=== PATIENT | male | born 1970 | race Caucasian/White ===

== ENCOUNTER 2016-11-25 21:20 | Emergency (ER) | payer BC ==
[2016-11-25 21:35] VITALS: RESP 16
[2016-11-25] MEDS ORDERED: KETOROLAC 30 MG/ML 1 ML VIAL IVP STA (21:41)
[2016-11-25 22:23] LABS: Basophils % (A) 0 %; CH 30.5; CHCM 34.9; Eosinophils # (A) 0.1 k/uL (0-0.7); Eosinophils % (A) 1 %; HCT 49.2 % (39.0-53.0); HDW 2.81; HGB 16.4 gm/dL (13.0-17.5); Luc # (Auto) 0.13; Luc % (Auto) 1; Lymphocytes # (A) 2.1 k/uL (1.0-4.8); Lymphocytes % (A) 21 %; MCH 29.3 pg (25.0-35.0); MCHC 33.4 g/dL (31.0-37.0); MCV 87.7 fL (80.0-100.0); Mean Platelet Volume 7.2; Monocytes # (A) 0.4 k/uL (0-1.0); Monocytes % (A) 4 %; Neutrophils # (A) 7.4 k/uL (1.3-7.7); Neutrophils % (A) 72 %; RBC 5.61 m/uL (4.30-5.90); RDW 14.2 % (11.5-15.5); WBC 10.2 k/uL (3.8-10.6); WBC (Perox) 9.67
[2016-11-25 22:31] LABS: Partial Thromboplastin Time 22.8 sec (22.0-30.0); Prothrombin Time 10.4 sec (9.0-12.0)
[2016-11-25 22:35] LABS: ALT 39 U/L (21-72); AST 25 U/L (17-59); Alkaline Phosphatase 111 U/L (38-126); Anion Gap 13 mmol/L; Blood Urea Nitrogen 17 mg/dL (9-20); Carbon Dioxide 22 mmol/L (22-30); Chloride 109 mmol/L (98-107); Glucose 98 mg/dL (74-99); Non-African American GFR(MDRD) 56 (>60 ml/min/1.73 sqM); Potassium 4.3 mmol/L (3.5-5.1); Sodium 144 mmol/L (137-145); Total Bilirubin 0.9 mg/dL (0.2-1.3); Total Protein 7.9 g/dL (6.3-8.2)
--- NOTE | 2016-11-25 22:56 | XR ---
EXAM: XR Chest, 2 Views CLINICAL HISTORY: Reason: Pain TECHNIQUE: Frontal and lateral views of the chest. COMPARISON: 10/21/14. FINDINGS: Lungs: Unremarkable. No consolidation. Pleural space: Unremarkable. No pneumothorax. Heart: Unremarkable. No cardiomegaly. Mediastinum: Unremarkable. Bones/joints: No acute abnormality. Minor degenerative changes. IMPRESSION: No new acute intrathoracic abnormality is seen.
--- NOTE | 2016-11-25 23:18 | ED ---
Chest Pain HPI - General Chief Complaint: Chest Pain Stated Complaint: Chest Pain Time Seen by Provider: 11/25/16 21:21 Source: patient Mode of arrival: wheelchair Limitations: no limitations - History of Present Illness Initial Comments: This is a 46-year-old male with no past medical history who presents emergency department for chest pain back pain and left arm numbness. He states that it started shortly after playing basketball earlier today. He states that he had no symptoms while playing basketball however when he got into his car to drive home he developed the above symptoms. He states that he had some chest pressure which has since resolved however he has had persistent back pain and also some numbness down the left hand. Denies any weakness. He states that he normally would just wait it out however it concerned him so he decided to come in. He denies any smoking history. He states that he does not have any lightheadedness. No nausea or vomiting. No other complaints. - Related Data Home Medications Medication Instructions Recorded Confirmed Acetaminophen [Tylenol] 1,000 mg PO DAILY PRN 11/25/16 11/25/16 Ibuprofen [Motrin] 800 mg PO DAILY PRN 11/25/16 11/25/16 Allergies Allergy/AdvReac Type Severity Reaction Status Date / Time No Known Allergies Allergy Verified 11/25/16 21:49 Review of Systems ROS Statement: Those systems with pertinent positive or pertinent negative responses have been documented in the HPI. ROS Other: All systems not noted in ROS Statement are negative. EKG Findings - EKG Comments: EKG Findings:: EKG showing normal sinus rhythm with a rate of 62. No ST segment changes or T-wave inversions. QTC is 387. Other intervals are normal. No ectopy. Past Medical History Past Medical History: No Reported History History of Any Multi-Drug Resistant Organisms: None Reported Past Surgical History: Orthopedic Surgery Past Psychological History: No Psychological Hx Reported Smoking Status: Never smoker Past Alcohol Use History: None Reported Past Drug Use History: None Reported General Exam - General Exam Comments Initial Comments: Constitutional: Awake alert Appears comfortable Head: Normocephalic atraumatic Eyes: no conjunctival injection No scleral icterus EOMI Neck: No JVD Supple Heart: Regular rate rhythm normal S1-S2 no murmurs Lungs: Clear to auscultation bilaterally No wheezing No rales Abdomen: Soft nondistended nontender Extremities: Non edematous DP pulses intact Radial pulses intact Neuro: A&Ox3 5 out of 5 strength in upper and lower extremities bilaterally, sensation intact to light touch in all extremities Psych: Appropriate mood and affect Limitations: no limitations Course Vital Signs 11/25/16 11/25/16 21:23 21:33 Temperature 97.4 F L Pulse Rate 64 64 Respiratory 20 16 Rate Blood Pressure 200/101 183/108 O2 Sat by Pulse 98 99 Oximetry Chest Pain MDM - MDM This is a 38-year-old male presents emergency department for chest pain, back pain, left arm tingling and numbness. His symptoms completely resolved with Toradol. EKG was unremarkable. Troponin negative. Chest x-ray did not show any mediastinal widening or any intrathoracic process. Of note the patient's blood pressure was elevated while in the emergency department. It sounds like this is been reoccurring at previous office visits. He may need to be started on blood pressure medications. I gave him Dr. Jacinto's information to follow-up with. If he has persistently high blood pressure he should be started on blood pressure medication. I told him to return if he had worsening chest pain or any other concerns. All questions were answered. Disposition Clinical Impression: Chest pain Disposition: HOME SELF-CARE Condition: Stable Instructions: Chest Pain (ED) Additional Instructions: Please establish herself with a primary care physician. Your blood pressure 1 the emergency Department ranged from 160-180 systolic over 100. If it is consistently high her next office visit blood pressure medication should be considered. Referrals: None,Stated [Primary Care Provider] - 1-2 days Saida Bright MD [REFERRING] - 1-2 days
[2016-11-25 23:29] LABS: Creatine Kinase MB 1.1 ng/mL (0.0-2.4); Troponin I 0.013 ng/mL (0.000-0.034)
[2016-11-26 02:00] VITALS: BP 168/104; PULSE 55; TEMP 97.7
== END 2016-11-26 00:02 | disposition home or self-care (01) ==
LOC: EC 21:20
DX: R07.89 Other chest pain (principal); M54.9 Dorsalgia, unspecified; R03.0 Elevated blood-pressure reading, without diagnosis of hypertension; R20.0 Anesthesia of skin; R20.2 Paresthesia of skin
CPT/HCPCS: 36415; 93005; 80053; 82553; 84484; 85025; 85610; 85730; 71020; 99285; 96374; J1885

== ENCOUNTER → 2017-02-16 | Outpatient (CLI) | payer BC ==
[2017-02-16 08:25] LABS: CH 31.4; CHCM 34.4; HCT 52.1 % (39.0-53.0); HDW 2.83; HGB 17.1 gm/dL (13.0-17.5); MCH 30.2 pg (25.0-35.0); MCHC 32.9 g/dL (31.0-37.0); MCV 91.9 fL (80.0-100.0); Mean Platelet Volume 7.6; RBC 5.67 m/uL (4.30-5.90); RDW 15.2 % (11.5-15.5); WBC 6.9 k/uL (3.8-10.6)
[2017-02-16 08:46] LABS: ALT 39 U/L (21-72); AST 27 U/L (17-59); Alkaline Phosphatase 88 U/L (38-126); Anion Gap 11 mmol/L; Blood Urea Nitrogen 14 mg/dL (9-20); Calcium 9.5 mg/dL (8.4-10.2); Carbon Dioxide 25 mmol/L (22-30); Chloride 108 mmol/L (98-107); Cholesterol 203 mg/dL (<200); Glucose 87 mg/dL (74-99); HDL Cholesterol 40 mg/dL (40-60); Non-African American GFR(MDRD) >60 (>60 ml/min/1.73 sqM); Potassium 4.2 mmol/L (3.5-5.1); Sodium 144 mmol/L (137-145); Total Protein 7.5 g/dL (6.3-8.2)
== END | disposition home or self-care (01) ==
LOC: LABWHC1 08:04
PROVIDERS: ATTEND Family Medicine
DX: I16.0 Hypertensive urgency (principal)
CPT/HCPCS: 36415; 80053; 80061; 85027

== ENCOUNTER 2018-10-21 11:01 | Inpatient (IN) | payer BC ==
[2018-10-21] MEDS ORDERED: SODIUM CHLORIDE 0.9% 500 ML 500 ML IV STA (11:15)
[2018-10-21] MEDS ORDERED: ASPIRIN 81 MG PO STA (11:15)
--- NOTE | 2018-10-21 11:45 | ED ---
Chest Pain HPI - General Chief Complaint: Chest Pain Stated Complaint: Chest discomfort/sent by doctor Time Seen by Provider: 10/21/18 11:15 Source: patient, RN notes reviewed Mode of arrival: ambulatory Limitations: no limitations - History of Present Illness Initial Comments: 48-year-old male presents emergency Department with chief complaint of chest pain. He's had progressive symptoms of last couple weeks and which she states she always notices it with exertion. He states even short walking distances he gets pain in his chest and radiates to his back. He states that the same pain this more frequent for the last 2 weeks. Patient was seen at [facility] and sent here for further evaluation. He has no prior cardiac disease he does have a history of hypertension and mild family heart disease. Patient does not take any current medications though. Patient denies any prior blood clots or clotting disorders in the family. - Related Data Home Medications Medication Instructions Recorded Confirmed Ibuprofen [Motrin] 800 mg PO DAILY PRN 11/25/16 10/21/18 Allergies Allergy/AdvReac Type Severity Reaction Status Date / Time No Known Allergies Allergy Verified 10/21/18 11:14 Review of Systems ROS Statement: Those systems with pertinent positive or pertinent negative responses have been documented in the HPI. ROS Other: All systems not noted in ROS Statement are negative. EKG Findings - EKG Comments: EKG Findings:: EKG performed at 11:40 normal sinus rhythm rate of 61. 164 QRS 76 QT status QTC 422/[address] elevation or depression. Past Medical History Past Medical History: No Reported History History of Any Multi-Drug Resistant Organisms: None Reported Past Surgical History: Orthopedic Surgery Past Psychological History: No Psychological Hx Reported Smoking Status: Never smoker Past Alcohol Use History: None Reported Past Drug Use History: None Reported General Exam Limitations: no limitations General appearance: alert, in no apparent distress Head exam: Present: atraumatic, normocephalic, normal inspection ENT exam: Present: normal exam, mucous membranes moist, TM's normal bilaterally Neck exam: Present: normal inspection. Absent: tenderness, meningismus, lymphadenopathy Respiratory exam: Present: normal lung sounds bilaterally. Absent: respiratory distress, wheezes, rales, rhonchi, stridor Cardiovascular Exam: Present: regular rate, normal rhythm, normal heart sounds. Absent: systolic murmur, diastolic murmur, rubs, gallop, clicks GI/Abdominal exam: Present: soft, normal bowel sounds. Absent: distended, tenderness, guarding, rebound, rigid Course Vital Signs 10/21/18 10/21/18 11:11 11:50 Temperature 97.7 F Pulse Rate 64 61 Respiratory 18 18 Rate Blood Pressure 160/94 165/110 O2 Sat by Pulse 99 95 Oximetry Chest Pain MDM - MDM 48-year-old male presents emergency from for chest pain. Patient has exertional chest pain which is concerning given negative d-dimer, chest x-ray unremarkable EKG unremarkable. Patient will be admitted for further cardiac rule out includ ing possible stress test and cath. Disposition Clinical Impression: Exertional chest pain Disposition: ADMITTED IP TO THIS HOSP Condition: Stable Referrals: Mumtaz Garnica MD [Primary Care Provider] - 1-2 days
[2018-10-21 11:48] LABS: Basophils # (A) 0.1 k/uL (0-0.2); Basophils % (A) 1 %; Eosinophils # (A) 0.2 k/uL (0-0.7); Eosinophils % (A) 2 %; HCT 51.9 % (39.0-53.0); HGB 16.9 gm/dL (13.0-17.5); Lymphocytes # (A) 2.1 k/uL (1.0-4.8); Lymphocytes % (A) 32 %; MCH 29.2 pg (25.0-35.0); MCHC 32.5 g/dL (31.0-37.0); Mean Platelet Volume 7.4; Monocytes # (A) 0.4 k/uL (0-1.0); Monocytes % (A) 6 %; Neutrophils # (A) 3.7 k/uL (1.3-7.7); Neutrophils % (A) 57 %; Platelet Count 213 k/uL (150-450); RBC 5.77 m/uL (4.30-5.90); RDW 14.3 % (11.5-15.5); WBC 6.6 k/uL (3.8-10.6)
[2018-10-21 12:09] LABS: D-Dimer 0.36 mg/L FEU (<0.60); INR 0.9 (<1.2); Partial Thromboplastin Time 24.8 sec (22.0-30.0)
--- NOTE | 2018-10-21 12:11 | XR ---
EXAMINATION TYPE: XR chest 2V DATE OF EXAM: 10/21/2018 COMPARISON: Chest x-ray November 25, 2016. HISTORY: Chest pain. TECHNIQUE: Frontal and lateral views of the chest are obtained. FINDINGS: Overlying EKG leads are redemonstrated. There is chronic clinical change without suspicious focal air space opacity, pleural effusion, or pneumothorax seen. The cardiac silhouette size is sta ble and upper limits of normal. The osseous structures are intact. IMPRESSION: No acute cardiopulmonary process. No significant change from prior.
[2018-10-21 12:17] LABS: Albumin 4.7 g/dL (3.5-5.0); Calcium 9.5 mg/dL (8.4-10.2); Magnesium 2.2 mg/dL (1.6-2.3); Potassium 4.5 mmol/L (3.5-5.1); Total Bilirubin 0.9 mg/dL (0.2-1.3); Total Protein 8.1 g/dL (6.3-8.2)
[2018-10-21] MEDS ORDERED: NITROGLYCERIN SL TABS 0.4 MG TAB SUBLINGUAL PRN (12:37)
[2018-10-21] MEDS ORDERED: HEPARIN SODIUM,PORCINE 5,000 UNIT/ML 1 ML VIAL IV ONE (12:37)
[2018-10-21] MEDS ORDERED: HEPARIN SOD,PORK IN 0.45% NACL 25,000 UNIT in 0.45% NACL 1 250ML.BAG IV SCH (12:45)
[2018-10-21] MEDS ORDERED: METOPROLOL TARTRATE 50 MG TAB PO STA (14:49)
[2018-10-21] MEDS ORDERED: ATORVASTATIN 80 MG TAB PO STA (14:50)
--- NOTE | 2018-10-21 14:51 | P.HPIM ---
History of Present Illness H&P Date: 10/21/18 Patient is a 48-year-old male with a past history of hypertension who presented to the ED for ongoing exertional substernal chest pain for the past 3 weeks. The patient reports that over the past 3-4 weeks he has noted that he gets a pressure-like substernal chest pain with associated shortness of breath upon exertion. The pain is a 6-8 out of 10, with radiation to the left arm and elbow, exacerbated by further activity, and alleviated entirely with rest. Pain was brought on with brisk walking, playing basketball, or climbing stairs, and has been getting worse, and occurring with decreasing levels of exertion. The patient notes that he has never had such symptoms before, though notes that he does have GERD but feels that this pain is very strongly linked to exertion. Patient otherwise denied fevers, cough, dizziness, abdominal pain, nausea, vomiting, or diaphoresis. Patient underwent an extensive evaluation in the ED with troponins less than 0.012, EKG showing normal sinus rhythm at 61 bpm with borderline criteria for LVH, chest x-ray negative for acute abnormalities. WBC was 6.6, hemoglobin 10.9, BUN 12, and creatinine 1.17. The patient was subsequently admitted under the medicine service for cardiology evaluation. Review of Systems Pertinent positives and negatives as discussed in HPI, a complete review of systems was performed and all other systems are negative. Past Medical History Past Medical History: No Reported History History of Any Multi-Drug Resistant Organisms: None Reported Past Surgical History: Orthopedic Surgery Past Psychological History: No Psychological Hx Reported Smoking Status: Never smoker Past Alcohol Use History: None Reported Past Drug Use History: None Reported Medications and Allergies Home Medications Medication Instructions Recorded Confirmed Type Ibuprofen [Motrin] 800 mg PO DAILY PRN 11/25/16 10/21/18 History Allergies Allergy/AdvReac Type Severity Reaction Status Date / Time No Known Allergies Allergy Verified 10/21/18 11:14 Physical Exam Vitals: Vital Signs Temp Pulse Resp BP Pulse Ox 10/21/18 13:47 56 L 16 155/87 96 10/21/18 12:51 65 18 153/108 98 10/21/18 12:30 61 18 95 10/21/18 11:50 61 18 165/110 95 10/21/18 11:11 97.7 F 64 18 160/94 99 Intake and Output 10/20/18 10/21/18 10/21/18 22:59 06:59 14:59 Other: Weight 135.76 kg General: non toxic, no distress, appears at stated age, obese Derm: no unusual rashes/lesions no unusual ecchymoses, warm, dry Head: atraumatic, normocephalic, symmetric Eyes: EOMI, no lid lag, anicteric sclera, pupils equal round reactive to light ENT: Nose and ears atraumatic, no thrush, no pharyngeal erythema Neck: No thyromegaly, no cervical lymphadenopathy, trachea midline, supple Mouth: no lip lesion, mucus membranes moist Cardiovascular: S1S2 reg, no murmur, positive posterior tibial pulse bilateral, no edema, capillary refill less than 2 seconds Lungs: CTA bilateral, no rhonchi, no rales , no accessory muscle use Abdominal: soft, nontender to palpation, no guarding, no appreciable organomegaly, normal bowel sounds Ext: no gross muscle atrophy, muscle strength 5 out of 5 in all 4 extremities grossly, no contractures, Neuro: CN II-XI grossly intact, light touch intact all 4 extremities, finger to nose within normal limits, Psych: Alert, oriented, appropriate affect Results CBC & Chem 7: 10/21/18 11:36 10/21/18 11:36 Labs: Abnormal Lab Results - Last 24 Hours (Table) 10/21/18 Range/Units 11:36 Chloride 113 H (98-107) mmol/L Carbon Dioxide 19 L (22-30) mmol/L Assessment and Plan Plan: Chest pain, unstable angina -Cardiology consult -Cardiac monitoring -Continue with heparin infusion -Trend troponin Hypertension -Patient notes that he has not been taking his prescribed diuretic at home DVT prophylaxis -Heparin infusion The patient is admitted with an anticipated less than 2 midnight stay for evaluation of chest pain. CODE STATUS:Full Code Discussed with: Patient Anticipated discharge date: 10/22/[address]: Home A total of 30 minutes was spent on the care of this complex patient more than 50% of the time was spent in counseling and care coordination.
--- NOTE | 2018-10-21 18:34 | ECHOF ---
Referral Reason:Exertional chest pain MEASUREMENTS -------- HEIGHT: 190.5 cm WEIGHT: 135.6 kg BP: RVIDd: 3.6 cm (< 3.3) IVSd: 1.4 cm (0.6 - 1.1) LVIDd: 5.7 cm (3.9 - 5.3) LVPWd: 1.7 cm (0.6 - 1.1) IVSs: 2.0 cm LVIDs: 4.3 cm LVPWs: 1.9 cm LAESV Index (A-L): 31.44 ml/m Ao Diam: 3.2 cm (2.0 - 3.7) AV Cusp: 2.5 cm (1.5 - 2.6) LA Diam: 4.0 cm (2.7 - 3.8) MV EXCURSION: 22.213 mm (> 18.000) MV EF SLOPE: 156 mm/s (70 - 150) EPSS: 0.4 cm MV E Darius: 0.79 m/s MV DecT: 258 ms MV A Darius: 0.50 m/s MV E/A Ratio: 1.58 RAP: 5.00 mmHg RVSP: 37.85 mmHg FINDINGS -------- Sinus rhythm. This was a technically good study. The left ventricular size is normal. There is moderate concentric left ventricular hypertrophy. O verall left ventricular systolic function is normal with, an EF between 55 - 60 %. The right ventricle is mildly enlarged. The left atrial size is normal. The right atrial size is normal. Interatrial and interventricular septum intact. The aortic valve is trileaflet and appears structurally normal. Mild mitral regurgitation is present. Mild tricuspid regurgitation present. The right ventricular systolic pressure, as measured by Doppl er, is 37.85mmHg. There is no pulmonic regurgitation present. The aortic root is dilated measuring 3.2cm. Normal inferior vena cava with normal inspiratory collapse consistent with estimated right atrial pre ssure of 5 mmHg. There is no pericardial effusion. CONCLUSIONS -------- 1. Sinus rhythm. 2. This was a technically good study. 3. The left ventricular size is normal. 4. There is moderate concentric left ventricular hypertrophy. 5. Overall left ventricular systolic function is normal with, an EF between 55 - 60 %. 6. The right ventricle is mildly enlarged. 7. The left atrial size is normal. 8. The right atrial size is normal. 9. Interatrial and interventricular septum intact. 10. The aortic valve is trileaflet and appears structurally normal. 11. Mild mitral regurgitation is present. 12. Mild tricuspid regurgitation present. 13. The right ventricular systolic pressure, as measured by Doppler, is 37.85mmHg. 14. There is no pulmonic regurgitation present. 15. The aortic root is dilated measuring 3.2cm. 16. Normal inferior vena cava with normal inspiratory collapse consistent with estimated right atrial pressure of 5 mmHg. 17. There is no pericardial effusion. ROADABILITY MACHINE OPERATOR: Ce Jordan RDCS
[2018-10-21] MEDS ORDERED: HEPARIN SODIUM,PORCINE 5,000 UNIT/ML 1 ML VIAL IV PRN (19:20)
[2018-10-21] MEDS: METOPROLOL TARTRATE 50 MG TAB PO SCH (22:00)
[2018-10-22 02:23] LABS: Mean Platelet Volume 7.6; Platelet Count 193 k/uL (150-450)
[2018-10-22 02:47] LABS: Cholesterol 162 mg/dL (<200); HDL Cholesterol 33 mg/dL (40-60); LDL Cholesterol,Calculated 90 mg/dL (0-99); Triglycerides 195 mg/dL (<150)
--- NOTE | 2018-10-22 08:05 | P.CRDCN ---
History of Present Illness Consult date: 10/22/18 Chief complaint: Chest pain History of present illness: This is a pleasant 48-year-old gentleman with a past medical history significant for hypertension presented to the emergency room complaining of chest discomfort. For the last few weeks, he has been experiencing chest discomfort, in the mid of the chest, as a pressure on the chest, with some radiation to the left arm. No associated symptoms of shortness of breath, dizziness, heart rac ing, or syncope. The patient states clearly that the chest discomfort is only with exertion and better with resting. For the last week or so, he has been experiencing more often and more intense symptoms of chest discomfort. Because of that he was quite concerned and decided to come to the hospital. The blood pressure has been slightly elevated. The EKG showed sinus rhythm without any ischemic ST or T-wave abnormalities. The cardiac enzymes were checked and came in to be unremarkable. Past Medical History Past Medical History: No Reported History History of Any Multi-Drug Resistant Organisms: None Reported Past Surgical History: Hernia Repair, Orthopedic Surgery, Tonsillectomy Additional Past Surgical History / Comment(s): left knee scope Past Anesthesia/Blood Transfusion Reactions: No Reported Reaction Past Psychological History: No Psychological Hx Reported Smoking Status: Never smoker Past Alcohol Use History: None Reported Past Drug Use History: None Reported Medications and Allergies Home Medications Medication Instructions Recorded Confirmed Type Ibuprofen [Motrin] 800 mg PO DAILY PRN 11/25/16 10/21/18 History Allergies Allergy/AdvReac Type Severity Reaction Status Date / Time No Known Allergies Allergy Verified 10/21/18 11:14 Physical Exam Vitals: Vital Signs Temp Pulse Pulse Resp BP BP Pulse Ox 10/22/18 07:59 97.7 F 52 L 16 148/89 95 10/22/18 04:00 97.7 F 61 18 148/94 96 10/22/18 03:09 18 10/22/18 00:00 18 10/21/18 23:48 97.8 F 58 L 18 164/85 95 10/21/18 20:00 98.2 F 63 18 176/94 94 L 10/21/18 19:41 16 10/21/18 17:17 16 10/21/18 16:50 97.6 F 59 L 18 158/96 96 10/21/18 16:38 60 16 152/96 97 10/21/18 13:47 56 L 16 155/87 96 10/21/18 12:51 65 18 153/108 98 10/21/18 12:30 61 18 95 10/21/18 11:50 61 18 165/110 95 10/21/18 11:11 97.7 F 64 18 160/94 99 Intake and Output 10/21/18 10/22/18 10/22/18 22:59 06:59 14:59 Intake Total 505.5 Balance 505.5 Intake: Intake, IV Titration 61.5 Amount Heparin Sod,Pork in 0.45% 61.5 NaCl 25,000 unit In 0.45 % NaCl 1 250ml.bag @ 7.37 UNITS/KG/HR 10.006 mls/ hr IV .Q24H [facility] Rx#: [id number] Oral 444 Other: Voiding Method Toilet Toilet # Voids 1 2 - Constitutional General appearance: no acute distress - Respiratory Respiratory: bilateral: CTA - Cardiovascular Rhythm: regular Heart sounds: normal: S1, S2 Results 10/22/18 02:15 10/21/18 11:36 Cardiac Enzymes 10/21/18 10/21/18 10/21/18 Range/Units 11:36 11:36 18:35 AST 37 (17-59) U/L Troponin I <0.012 <0.012 (0.000-0.034) ng/mL 10/21/18 Range/Units 23:16 AST (17-59) U/L Troponin I <0.012 (0.000-0.034) ng/mL Coagulation 10/21/18 10/21/18 10/22/18 Range/Units 11:36 18:35 02:15 PT 10.0 (9.0-12.0) sec APTT 24.8 34.4 H 49.5 H (22.0-30.0) sec Lipids 10/22/18 Range/Units 02:15 Triglycerides 195 H (<150) mg/dL Cholesterol 162 (<200) mg/dL HDL Cholesterol 33 L (40-60) mg/dL CBC 10/21/18 10/22/18 Range/Units 11:36 02:15 WBC 6.6 (3.8-10.6) k/uL RBC 5.77 (4.30-5.90) m/uL Hgb 16.9 (13.0-17.5) gm/dL Hct 51.9 (39.0-53.0) % Plt Count 213 193 (150-450) k/uL Comprehensive Metabolic Panel 10/21/18 Range/Units 11:36 Sodium 143 (137-145) mmol/L Potassium 4.5 (3.5-5.1) mmol/L Chloride 113 H (98-107) mmol/L Carbon Dioxide 19 L (22-30) mmol/L BUN 12 (9-20) mg/dL Creatinine 1.17 (0.66-1.25) mg/dL Glucose 93 (74-99) mg/dL Calcium 9.5 (8.4-10.2) mg/dL AST 37 (17-59) U/L ALT 47 (21-72) U/L Alkaline Phosphatase 97 (38-126) U/L Total Protein 8.1 (6.3-8.2) g/dL Albumin 4.7 (3.5-5.0) g/dL Current Medications Generic Name Dose Route Start Last Admin Trade Name Freq PRN Reason Stop Dose Admin Aspirin 325 mg 10/22/18 09:00 Aspirin PO DAILY [facility] Atorvastatin Calcium 80 mg 10/22/18 09:00 Lipitor PO DAILY [facility] Heparin Sodium (Porcine) 0 unit 10/21/18 19:20 10/21/18 19:40 Heparin IV 4,000 unit PER PROTOCOL PRN Administration Low PTT Protocol Heparin Sodium/Sodium Chloride 250 mls @ 10.006 mls/hr 10/21/18 12:45 10/21/18 19:48 25,000 unit/ Sodium Chloride IV 10.37 units/kg/hr .Q24H [facility] 14.078 mls/hr Titration Protocol 7.37 UNITS/KG/HR Metoprolol Tartrate 50 mg 10/21/18 22:00 10/21/18 22:00 Lopressor PO 50 mg TID PAULA Administration Nitroglycerin 0.4 mg 10/21/18 12:37 Nitrostat SUBLINGUAL Q5M PRN Chest Pain Intake and Output 10/21/18 10/22/18 10/22/18 22:59 06:59 14:59 Intake Total 505.5 Balance 505.5 Intake: Intake, IV Titration 61.5 Amount Heparin Sod,Pork in 0.45% 61.5 NaCl 25,000 unit In 0.45 % NaCl 1 250ml.bag @ 7.37 UNITS/KG/HR 10.006 mls/ hr IV .Q24H [facility] Rx#: [id number] Oral 444 Other: Voiding Method Toilet Toilet # Voids 1 2 10/22/18 02:15 10/21/18 11:36 Assessment and Plan Assessment: Assessment #1 chest discomfort concerning for unstable angina #2 hypertension Plan #1 I did recommend proceeding with coronary angiogram, giving the nature of the chest discomfort which is anginal #2 obtain an echocardiogram was Doppler #3 follow-up with the patient
[2018-10-22] MEDS ORDERED: NITROGLYCERIN SL TABS 0.4 MG TAB SUBLINGUAL PRN (08:19)
[2018-10-22] MEDS ORDERED: ALPRAZolam 0.25 MG TAB PO PRN (08:19)
[2018-10-22] MEDS ORDERED: SODIUM CHLORIDE 0.9% 1,000 ML in EMPTY BAG 1 BAG IV ONE (08:19)
[2018-10-22] MEDS ORDERED: ALPRAZolam 0.5 MG TAB PO PRN (08:19)
[2018-10-22] MEDS ORDERED: ATORVASTATIN 80 MG TAB PO STA (08:19)
[2018-10-22] MEDS ORDERED: ASPIRIN 325 MG TAB PO STA (08:19)
[2018-10-22] MEDS: ASPIRIN 325 MG TAB PO SCH (09:30)
[2018-10-22] MEDS: METOPROLOL TARTRATE 50 MG TAB PO SCH ×3 (09:30→22:15)
[2018-10-22] MEDS: ATORVASTATIN 80 MG TAB PO SCH (09:30)
[2018-10-22] MEDS ORDERED: IV FLUID CONTINUATION 1,000 ML IV ONE (17:50)
[2018-10-22] MEDS ORDERED: VERAPAMIL 2.5 MG/ML 2 ML AMP ONE (17:50)
[2018-10-22] MEDS ORDERED: LIDOCAINE 1% INJ 10MG/ML (20 ML MDV) ONE (17:50)
[2018-10-22] MEDS ORDERED: HEPARIN SODIUM 1,000 UN/ML (10ML VL) ONE (17:50)
[2018-10-22] MEDS ORDERED: MIDAZOLAM (PF) 2 MG/2 ML VIAL IVP ONE ×2 (18:01→18:11)
[2018-10-22] MEDS ORDERED: LIDOCAINE 1% INJ 10MG/ML (20 ML MDV) SQ ONE (18:10)
[2018-10-22] MEDS ORDERED: HEPARIN SODIUM 1,000 UN/ML (10ML VL) IV ONE (18:11)
[2018-10-22] MEDS: VERAPAMIL SYRINGE (5 MG/10 ML) INTRAARTER ONE ×2 (18:11→18:24)
[2018-10-22] MEDS ORDERED: fentaNYL (PF) 50 MCG/ML 2 ML AMP ONE (18:15)
[2018-10-22] MEDS ORDERED: fentaNYL (PF) 50 MCG/ML 2 ML AMP IVP ONE (18:15)
[2018-10-22] MEDS ORDERED: IOPAMIDOL-370 125ML BTL INJ ONE (18:23)
[2018-10-22] MEDS ORDERED: RX INFO: IV CONTRAST WAS GIVEN 1 EACH MISC MISCELLANE PRN (18:39)
[2018-10-22] MEDS ORDERED: SODIUM CHLORIDE 0.9% 1,000 ML IV SCH (18:45)
--- NOTE | 2018-10-22 20:22 | HP ---
HISTORY AND PHYSICAL DATE OF ADMISSION: 10/21/18 MMGET / BENIGNON: [id number] /
--- NOTE | 2018-10-22 20:23 | PN ---
PROGRESS NOTE DATE OF SERVICE: 10/22/2018 PRESENTING COMPLAINT: Chest pain. INTERVAL HISTORY: Patient admitted with a diagnosis of unstable angina. Troponins have been negative. Sitting up. The patient has been on IV heparin. Due to go for a cardiac catheterization today. Family is at the bedside. The patient has been having this feeling of heart racing with chest pressure coming on for about 2 weeks. Currently no symptoms. REVIEW OF SYSTEMS: Done for constitutional, cardiovascular, GI, pulmonary and findings as above. CURRENT MEDICATIONS: Reviewed that include aspirin, Lipitor, Lopressor, IV heparin. PHYSICAL EXAMINATION: Temperature 97.6, pulse 72, respirations 16, blood pressure 155/100, pulse ox 95% on room air. GENERAL APPEARANCE: Sitting up comfortable. EYES: Pupils equal. Conjunctivae normal. NECK: JVD not raised. Mass not palpable. Respiratory effort normal. LUNGS: Fair air entry. CARDIOVASCULAR: First and second sounds normal. No edema. ABDOMEN: Soft, nontender. Liver and spleen not palpable. PSYCHIATRY: Alert and oriented x3. Mood and affect normal. BMI 35.5. INVESTIGATIONS: Troponin negative. LDL 90. ASSESSMENT: 1. Unstable angina pending cardiac catheterization. 2. Obesity, BMI 35.5. 3. IV heparin monitoring. PLAN: Continue medication and treatment plan. Awaiting cardiac catheterization today, go from there. JIN / JUNG: [id number] /
--- NOTE | 2018-10-22 21:49 | CC ---
CARDIAC CATHETERIZATION REPORT DATE OF SERVICE: October 22, 2018 PERFORMING PHYSICIAN: Jefferson Loja MD, proration clerk. PROCEDURE PERFORMED: 1. Selective right and left coronary angiogram. 2. Left heart catheterization. INDICATION: This is a very pleasant 48-year-old gentleman with past medical history significant for hypertension, presented to the hospital complaining of chest discomfort quite concerning for angina. The discomfort is of new onset, worse with exertion, better with resting. Because of that, a heart catheterization was advised. APPROACH: Right radial artery. COMPLICATION: None. LEVEL OF SEDATION: Moderate with sedation length of 24 minutes. PROCEDURE DESCRIPTION: After obtaining an informed consent, the patient was brought to the cardiac forestry farm laborer. The right common radial artery was cannulated using micropuncture technique, the micropuncture wire passed easily then I placed a 6-Mohawk sheath in the right radial artery. After that I gave the patient 2 mg of verapamil IA and 10,000 units of heparin IV. Subsequently I did selective right and left coronary angiogram using JR4 and JL3.5 catheters. Left heart catheterization was performed using the JR4 catheter which flipped into the LV then I did pullback across aortic valve. The procedure was completed without any complication. SELECTIVE CORONARY ANGIOGRAM: 1. The right coronary artery is a large caliber vessel and a dominant vessel. The proximal right has mild disease only. The mid right appeared to have mild disease only as well and the right distally has eccentric lesion appeared to be in the range of 70% to 80%. The right after that bifurcates into PDA and PLV branches both appear to have mild disease only. 2. The left main is angiographically normal. It bifurcates into the circumflex and left anterior descending artery. 3. The left circumflex is a large caliber vessel. The left circumflex is chronically occluded in the midportion and fills by ipsilateral collaterals, which fills an OM branch, feeds the lateral wall. 4. The LAD: The LAD is a large caliber vessel. The proximal LAD has a long tubular lesion appeared to be in the range of 80% to 90%. This is by the bifurcation of a medium to large sized diagonal branch which appeared to have a lesion in the range of 50% The mid LAD appeared to have mild disease only and the LAD distally appeared to have mild disease only. The LAD in the mid to distal portion gives rise into a second diagonal branch which seems to be angiographically normal. HEMODYNAMICS: The left ventricular end-diastolic pressure was about 10 mmHg without significant gradient across the aortic valve. CONCLUSION: 1. Intermittent episodes of chest discomfort concerning for unstable angina. 2. Severe triple-vessel coronary artery disease. POSTPROCEDURE MANAGEMENT: Giving the above anatomy came, I did recommend obtain an opinion from a cardiothoracic surgeon for the evaluation of coronary artery bypass grafting. Meanwhile, will follow up on his echocardiogram. MMGET / BENIGNON: [id number] /
[2018-10-23 06:09] LABS: Mean Platelet Volume 7.3; Platelet Count 202 k/uL (150-450)
[2018-10-23] MEDS: METOPROLOL TARTRATE 50 MG TAB PO SCH (08:14)
[2018-10-23] MEDS: ATORVASTATIN 80 MG TAB PO SCH (08:14)
[2018-10-23] MEDS: ASPIRIN 325 MG TAB PO SCH (08:14)
--- NOTE | 2018-10-23 09:28 | P.PN ---
Subjective Progress Note Date: 10/23/18 Principal diagnosis: Severe coronary artery disease This is a pleasant 48-year-old gentleman with a past medical history significant for hypertension and dyslipidemia who presented to the hospital was chest discomfort with classical anginal symptoms. He was ruled out for acute coronary event. He underwent a heart catheterization and that revealed severe triple- vessel coronary artery disease. The RCA has a critical lesion, the left circumflex is chronically occluded, and the LAD has a critical lesion as well. I did advise for the patient to be seen by cardiothoracic surgeon for evaluation of coronary artery that is grafting. He is in process to be seen by the surgeon today. Meanwhile the echocardiogram revealed normal LV function. On follow-up with him today, 11/02/2018, the patient did have mild chest discomfort earlier today. The echo revealed normal LV function. He is in process to be seen by Dr. Brandt later on today. Meanwhile will continue the current medical regimen including aspirin, statin, on beta flako. Objective - Vital Signs Vital signs: Vital Signs Temp 97.6 F 10/23/18 08:00 Pulse 52 L 10/23/18 08:00 Resp 18 10/23/18 08:00 BP 145/95 10/23/18 08:00 Pulse Ox 94 L 10/23/18 08:00 Intake & Output 10/22/18 10/23/18 10/23/18 18:59 06:59 18:59 Intake Total 150 900 240 Output Total 200 Balance 150 900 40 Weight 135 kg Intake: IV 150 Intake, IV Titration 600 Amount Sodium Chloride 0.9% 1, 600 000 ml @ 75 mls/hr IV . [id number] [facility] Rx#:[id number] Oral 300 240 Output: Urine 200 Other: Voiding Method Toilet Toilet # Voids 1 - Constitutional General appearance: Present: no acute distress - Respiratory Respiratory: bilateral: CTA - Cardiovascular Rhythm: regular Heart sounds: normal: S1, S2 - Labs CBC & Chem 7: 10/23/18 05:55 10/21/18 11:36 Assessment and Plan Assessment: Assessment #1 chest discomfort concerning for unstable angina #2 hypertension Plan #1 continue the current medical regimen #2 awaiting for the surgeon to evaluate the patient #3 follow-up with the patient
--- NOTE | 2018-10-23 10:41 | US ---
EXAMINATION TYPE: US carotid duplex BILAT DATE OF EXAM: 10/23/2018 COMPARISON: NONE CLINICAL HISTORY: preop CABG. Pre-OP EXAM MEASUREMENTS: RIGHT: Peak Systolic Velocity (PSV) cm/sec ----- Right CCA: 77.6 ----- Right ICA: 84.5 ----- Right ECA: 71.3 ICA/CCA ratio: 1.1 RIGHT: End Diastole cm/sec ----- Right CCA: 17.4 ----- Right ICA: 31.8 ----- Right ECA: 10.9 LEFT: Peak Systolic Velocity (PSV) cm/sec ----- Left CCA: 82.3 ----- Left ICA: 79.0 ----- Left ECA: 61.0 ICA/CCA ratio: 1.0 LEFT: End Diastole cm/sec ----- Left CCA: 15.3 ----- Left ICA: 34.0 ----- Left ECA: 8.6 VERTEBRALS (direction of flow): Right Vertebral: Antegrade Left Vertebral: Antegrade Rhythm: Normal No significant stenosis seen IMPRESSION: I DO NOT SEE EVIDENCE OF A HEMODYNAMICALLY SIGNIFICANT STENOSIS IN EITHER CAROTID SYSTEM. Criteria for Assigning % of Stenosis / Diameter reduction (Estimation based on the indirect measurements of the internal carotid artery velocities (ICA PSV). 1. Normal (no stenosis)=ICA PSV < 125 cm/s: ratio < 2.0: ICA EDV<40 cm/s. 2. Less than 50% stenosis=ICA PSV < 125 cm/s: ratio < 2.0: ICA EDV<40 cm/s. 3. 50 to 69% stenosis=ICA PSV of 125 to 230 cm/s: ration 2.0 ? 4.0: ICA EDV 40-100 cm/s. 4. Greater than 70% stenosis to near occlusion= ICA PSV > 230 cm/s: ratio > 4.0: ICA EDV > 100 cm/s. 5. Near occlusion= ICA PSV velocities may be low or undetectable: variable ratio and ICA EDV. 6. Total occlusion=unable to detect flow.
[2018-10-23] MEDS: ISOSORBIDE MONONITRATE ER 30 MG TAB.ER.24H PO SCH (11:46)
--- NOTE | 2018-10-23 13:05 | P.GSCN ---
History of Present Illness Consult date: 10/23/18 Reason for Consult: Triple-vessel coronary artery disease, surgical recommendations Requesting physician: Jefferson Loja History of present illness: This is a 48-year-old gentleman who follows on an outpatient basis with Dr. Mumtaz Garnica. He does relate having a previous medical history of hypertension a few years ago for which he took medication, however he did not refill the medication or follow up clinically. He also reports history of knee surgery and family history of hypertension. Never smoker. Apparently for the last several months he has had exertional chest pain radiating to his left elbow relieved with rest, associated with shortness of breath. These episodes have been coming more frequent and occasionally occur at rest. He denied any other aggravating or alleviating's symptoms. He he presented to [facility] emergency room and was admitted for evaluation and treatment. EKG demonstrated no ischemic changes, and troponins were negative. Chest x-ray showed no acute cardiopulmonary process. Due to the nature of his symptoms. He was recommended to undergo heart catheterization which was completed yesterday and which demonstrated distal RCA stenosis 70-80%, chronic totally occluded circumflex artery, proximal LAD stenosis 80-90%, mid LAD stenosis 30%, and diagonal stenosis 50%. Transthoracic echocardiogram was also completed demonstrating normal left ventricular systolic function with EF 55-60%, mild mitral regurgitation, and mild tricuspid regurgitation. Consultation was placed for Dr. Brandt from cardiothoracic surgery for surgical revascularization recommendations. Review of Systems Review systems was completed and was negative except as noted in the H&P Past Medical History Past Medical History: Chest Pain / Angina, Hyperlipidemia, Hypertension History of Any Multi-Drug Resistant Organisms: None Reported Past Surgical History: Hernia Repair, Orthopedic Surgery, Tonsillectomy Additional Past Surgical History / Comment(s): left knee scope Past Anesthesia/Blood Transfusion Reactions: No Reported Reaction Past Psychological History: No Psychological Hx Reported Smoking Status: Never smoker Past Alcohol Use History: None Reported Past Drug Use History: None Reported - Past Family History Father Family Medical History: Hypertension Mother Family Medical History: Cancer, Hypertension Medications and Allergies Home Medications Medication Instructions Recorded Confirmed Type Ibuprofen [Motrin] 800 mg PO DAILY PRN 11/25/16 10/21/18 History Allergies Allergy/AdvReac Type Severity Reaction Status Date / Time No Known Allergies Allergy Verified 10/21/18 11:14 Surgical - Exam Vital Signs Temp Pulse Resp BP Pulse Ox 97.7 F 64 18 160/94 99 10/21/18 11:11 10/21/18 11:11 10/21/18 11:11 10/21/18 11:11 10/21/18 11:11 - General well developed, well nourished, no distress, no pain - Eyes PERRL, normal ocular movement - ENT no hearing loss - Neck no masses, no bruits, trachea midline - Respiratory Lungs sounds clear bilaterally. Respirations even, nonlabored. Currently on room air with oxygen saturation 95%. No chest wall deformities. - Cardiovascular S1, S2 present. Slow but regular rate and rhythm, sinus bradycardia on telemetry. Palpable peripheral pulses bilaterally. No edema present. No calf pain or tenderness noted. No varicosities noted. Negative Shahriar's test to left radial artery. - Abdomen Abdomen: soft, non tender, bowel sounds - Genitourinary Deferred - Rectum Deferred - Integumentary Right radial artery cath site well approximated, no swelling, no drainage. no rash, no growths, no abnormal pigmentation - Neurologic normal coordination, normal sensation - Musculoskeletal normal gait, normal posture - Psychiatric oriented to time, oriented to person, oriented to place, speech is normal, memory intact Results - Labs 10/23/18 05:55 10/21/18 11:36 - Imaging Chest x-ray: report reviewed, image reviewed EKG: image reviewed Additional studies: Heart catheterization, echocardiogram results reviewed. Assessment and Plan Assessment: 1. Severe triple-vessel coronary artery disease 2. History of hypertension 3. Family history of hypertension Plan: The patient was seen and examined at the bedside with Dr. Brandt. Chart/diagnostics were reviewed. The case was discussed in detail between Dr. Brandt and Dr. Loja. We recommend coronary artery bypass graft surgery. The usual perioperative course was discussed in detail with the patient and his w sharon, risks and benefits were reviewed, all questions were answered, and the patient did consent to surgery. Preoperative testing was initiated. We recommend maximizing medical therapy with aspirin, statin, beta flako therapy. Once all testing has been completed we will calculate an STS risk score and discuss with the patient. Our plan is for coronary artery bypass graft surgery with the left internal mammary artery, endovascular vein harvest, possible left radial artery harvest, possible right internal mammary artery use, intraoperative transesophageal echocardiogram, timing to be determined based on testing results and OR availability. This was discussed in detail with the patient, his , and Dr. Loja and all are in agreement. Patient may be discharged home from our standpoint tomorrow after all testing has been completed. He was instructed to return to the emergency room should he have any chest pain or associated symptoms. Medical management per Dr. Loja. Thank you Dr. Loja for this consult. We look forward to working with you in the care of your patient. Time with Patient: Greater than 30
[2018-10-23 17:44] LABS: Appearance,Urine Clear (Clear); Bilirubin,Urine Negative (Negative); Blood,Urine Negative (Negative); Color,Urine Light Yellow; Glucose,Urine (UA) Negative (Negative); Ketones,Urine Negative (Negative); Leukocyte Esterase,Urine Negative (Negative); Nitrite,Urine Negative (Negative); PH, Urine 5.5 (5.0-8.0); Protein,Urine Negative (Negative); Specific Gravity,Urine 1.014 (1.001-1.035); Urobilinogen,Urine <2.0 mg/dL (<2.0)
[2018-10-23] MEDS: ACETAMINOPHEN TAB 500 MG TAB PO PRN (20:04)
[2018-10-23] MEDS: METOPROLOL TARTRATE 12.5 MG TAB PO SCH (20:05)
[2018-10-23] MEDS: MUPIROCIN 2% OINT 22 GM TUBE TOPICAL SCH (20:05)
--- NOTE | 2018-10-23 23:20 | PN ---
PROGRESS NOTE DATE OF SERVICE: 10/23/2018. PRESENTING COMPLAINT: Chest pain. INTERVAL HISTORY: Patient admitted with unstable angina. Cardiac cath showed severe triple-vessel disease. Cardiothoracic surgery has been consulted. The patient continues to have intermittent episodes of chest pain. Family is at the bedside. REVIEW OF SYSTEMS: Done for constitutional, cardiovascular, GI, pulmonary; relevant findings as above. CURRENT MEDICATIONS: Reviewed, that include aspirin, Lipitor, Lopressor. EXAMINATION: Temp 98.1, pulse 51, respiratory rate 18, blood pressure 129/74, pulse ox 96% on room air. GENERAL: Lying in bed, comfortable. EYES: Pupils equal. Conjunctivae normal. NECK: JVD not raised. Mass not palpable. Respiratory effort normal. LUNGS: Clear. CARDIOVASCULAR: 1st and 2nd heart sounds normal. No edema. ABDOMEN: Soft, nontender. Liver and spleen not palpable. PSYCHIATRY: Alert and oriented x3. Mood and affect normal. INVESTIGATIONS: UA negative. LDL 90. Cardiac cath results are noted. ASSESSMENT: 1. Unstable angina in a patient with severe triple-vessel coronary artery disease per cardiac catheterization. 2. Obesity, BMI 35. 3. Hyperlipidemia. IV heparin monitoring. PLAN: Cardiothoracic surgery was consulted. Given that the patient continues to have intermittent pain. The patient's surgery should be done sooner rather than later. The patient was seen by Dr. Brandt earlier today. Will await further determination by them. MMBINHL / BENIGNON: [id number] /
[2018-10-24 06:46] LABS: Mean Platelet Volume 7.5; Platelet Count 213 k/uL (150-450)
[2018-10-24 07:52] LABS: Calcium 9.6 mg/dL (8.4-10.2); Magnesium 1.9 mg/dL (1.6-2.3); Potassium 4.4 mmol/L (3.5-5.1)
[2018-10-24 07:55] LABS: INR 0.9 (<1.2); Partial Thromboplastin Time 24.3 sec (22.0-30.0); Prothrombin Time 10.1 sec (9.0-12.0)
[2018-10-24 08:19] LABS: HCT 48.8 % (39.0-53.0); MCH 28.8 pg (25.0-35.0); MCHC 32.8 g/dL (31.0-37.0); MCV 87.8 fL (80.0-100.0); Mean Platelet Volume 7.9; Platelet Count 210 k/uL (150-450); RBC 5.56 m/uL (4.30-5.90); RDW 14.9 % (11.5-15.5); WBC 9.8 k/uL (3.8-10.6)
[2018-10-24] MEDS: ASPIRIN 325 MG TAB PO SCH (09:13)
[2018-10-24] MEDS: ATORVASTATIN 80 MG TAB PO SCH (09:13)
[2018-10-24] MEDS: MUPIROCIN 2% OINT 22 GM TUBE TOPICAL SCH ×2 (09:13→22:12)
[2018-10-24] MEDS: METOPROLOL TARTRATE 12.5 MG TAB PO SCH ×2 (09:13→22:12)
[2018-10-24] MEDS: ISOSORBIDE MONONITRATE ER 30 MG TAB.ER.24H PO SCH (09:13)
--- NOTE | 2018-10-24 10:55 | P.PN ---
Subjective Progress Note Date: 10/24/18 Principal diagnosis: Severe triple vessel coronary artery disease. History of hypertension and family history of hypertension. The patient's currently sitting up at the bedside in no acute distress. When asked he does state he had a couple brief episodes of chest discomfort last night which abated on their own. Currently having no chest pain. 5 m walk test performed this morning and patient denied any chest pain during or after. Denies shortness of breath. Preoperative testing completed. All questions answered to the best of my ability. Objective - Vital Signs Vital signs: Vital Signs Temp 97.7 F 10/24/18 08:00 Pulse 61 10/24/18 08:00 Resp 16 10/24/18 08:00 BP 127/72 10/24/18 08:00 Pulse Ox 93 L 10/24/18 08:00 Intake & Output 10/23/18 10/24/18 10/24/18 18:59 06:59 18:59 Intake Total 240 360 Output Total 500 Balance -260 360 Weight 133.8 kg Intake: Oral 240 360 Output: Urine 500 Other: Voiding Method Toilet # Voids 1 1 - Constitutional General appearance: Present: cooperative, no acute distress - Respiratory Details: Lungs sounds clear bilaterally. Respirations even, nonlabored. Currently on room air with oxygen saturation 94%. Able to achieve 4000 mL on his incentive spirometry. - Cardiovascular Details: S1, S2 present. Slow but regular rate and rhythm, sinus bradycardia on telemetry. Palpable peripheral pulses bilaterally. No edema present. No calf pain or tenderness noted. - Gastrointestinal Gastrointestinal Comment(s): Abdomen soft, nontender, nondistended. Active bowel sounds present 4 quadrants. Tolerating diet. - Genitourinary Genitourinary Comment(s): Voiding clear, yellow urine. - Integumentary Integumentary Comment(s): Skin is warm and dry with evidence of good perfusion. - Neurologic Neurologic: Present: CNII-XII intact - Musculoskeletal Musculoskeletal: Present: gait normal, strength equal bilaterally - Psychiatric Psychiatric: Present: A&O x's 3, appropriate affect, intact judgment & insight - Allied health notes Allied health notes reviewed: nursing - Labs CBC & Chem 7: 10/24/18 07:25 10/24/18 07:25 Labs: Abnormal Lab Results - Last 24 Hours (Table) 10/24/18 Range/Units 07:25 Creatinine 1.30 H (0.66-1.25) mg/dL Glucose 128 H (74-99) mg/dL Microbiology - Last 24 Hours (Table) 10/23/18 17:00 Nasal Screen MRSA/MSSA - Preliminary Nasal Swab 10/23/18 17:00 Urine Culture - Preliminary Urine,Clean Catch - Imaging and Cardiology Chest x-ray: report reviewed, image reviewed Carotid Dopplers, pulmonary function test, vein mapping results reviewed Assessment and Plan Assessment: 1. Severe triple-vessel coronary artery disease 2. History of hypertension 3. Family history of hypertension 4. Never smoker with preoperative FEV1 102% of predicted Plan: 1. Continue aspirin, statin, beta flako therapy 2. Plan is for coronary artery bypass graft surgery with left internal mammary artery, endovascular vein harvest, possible left radial artery harvest, possible right internal mammary artery use, intraoperative transesophageal echocardiogram next 11/01/2018. 3. Encourage incentive spirometry use. 4. 5 m walk completed, #1 2.93 seconds, #2 2.93 seconds, #3 2.92 seconds. Patient experienced no chest pain or discomfort during or after walk test. 5. Continue supportive care. Continue preoperative teaching. 6. Medical management per Dr. Loja, Dr. Herring. Time with Patient: Greater than 30
--- NOTE | 2018-10-24 11:21 | P.PN ---
Subjective Progress Note Date: 10/24/18 Principal diagnosis: Severe coronary artery disease This is a pleasant 48-year-old gentleman with a past medical history significant for hypertension and dyslipidemia who presented to the hospital was chest discomfort with classical anginal symptoms. He was ruled out for acute coronary event. He underwent a heart catheterization and that revealed severe triple- vessel coronary artery disease. The RCA has a critical lesion, the left circumflex is chronically occluded, and the LAD has a critical lesion as well. I did advise for the patient to be seen by cardiothoracic surgeon for evaluation of coronary artery that is grafting. He was seen by the surgeon and the plan is to pursue with coronary artery bypass grafting as an outpatient. The echo revealed normal LV function. On follow-up with the patient today, October 242018, he did have some chest discomfort earlier today with exertion. He is on maximize medical treatment including oral nitrate but the oral nitrate is only 30 mg daily. I am going to increase the dose to 60 mg by mouth daily. Continue the current medical regimen. I advised skin the patient one more day in the hospital and not discharge the patient unless he is pain-free. Objective - Vital Signs Vital signs: Vital Signs Temp 97.7 F 10/24/18 08:00 Pulse 61 10/24/18 08:00 Resp 16 10/24/18 08:00 BP 127/72 10/24/18 08:00 Pulse Ox 93 L 10/24/18 08:00 Intake & Output 10/23/18 10/24/18 10/24/18 18:59 06:59 18:59 Intake Total 240 360 Output Total 500 Balance -260 360 Weight 133.8 kg Intake: Oral 240 360 Output: Urine 500 Other: Voiding Method Toilet # Voids 1 1 - Constitutional General appearance: Present: no acute distress - Respiratory Respiratory: bilateral: CTA - Cardiovascular Rhythm: regular Heart sounds: normal: S1, S2 - Labs CBC & Chem 7: 10/24/18 07:25 10/24/18 07:25 Labs: Abnormal Lab Results - Last 24 Hours (Table) 10/24/18 Range/Units 07:25 Creatinine 1.30 H (0.66-1.25) mg/dL Glucose 128 H (74-99) mg/dL Microbiology - Last 24 Hours (Table) 10/23/18 17:00 Nasal Screen MRSA/MSSA - Preliminary Nasal Swab 10/23/18 17:00 Urine Culture - Preliminary Urine,Clean Catch Assessment and Plan Assessment: Assessment #1 severe triple-vessel coronary artery disease #2 hypertension #3 dyslipidemia Plan #1 continue the current medical regimen #2 increase the Imdur to 60 mg daily #3 follow-up with the patient #4 keep the patient for additional 24 hours
--- NOTE | 2018-10-24 15:29 | P.CNPUL ---
History of Present Illness Consult date: 10/24/18 Requesting physician: Lefty Herring Reason for consult: dyspnea Chief complaint: Multivessel coronary artery disease History of present illness: This is a 48-year-old white male patient, that recently started following with Dr. Garnica, related to recent history of exertional shortness of breath. Patient does not have significant medical history other than history of hypertension, for which he is not on medication. Patient is a lifetime nonsmoker. Patient reports of several month history of exertional chest discomfort associated with shortness of breath. He was seen by Dr. James and sent to [facility] emergency room, and the EKG showed no ischemic changes and troponins were negative. His symptoms were concerning for unstable angina, and on 10/22/2018, patient underwent heart catheterization which showed severe triple-vessel coronary artery disease, with distal RCA lesion in the range of 70-80%, with mild disease proximally, LAD with a long tubular lesion in the range of 80-90%, diagonal branch with the lesion at 50%. LVEDP was 10 mmHg without significant gradient across the aortic valve. Echocardiogram showed left ventricular systolic function with an EF of 55-60% mild MR, mild TR, right ventricular systolic pressure of 37 mmHg. And patient was recommended surgical intervention was referred to cardiothoracic surgery, and the plan is to proceed with the jamshid nary artery bypass surgery possibly next Wednesday a week from tomorrow. Chest x- ray showed no acute cardiopulmonary process. Preop FEV1 was in the order of 102% of predicted. Room air pulse ox is 95%, patient is hemodynamically stable, he is afebrile, he denies any shortness of breath at the moment. Were consulted in regards to pulmonary clearance for the upcoming bypass surgery. Review of Systems All systems: negative Constitutional: Denies chills, Denies fever Eyes: denies blurred vision, denies pain Ears, nose, mouth and throat: Denies headache, Denies sore throat Cardiovascular: Denies chest pain, Denies shortness of breath Respiratory: Reports dyspnea, Denies cough Gastrointestinal: Denies abdominal pain, Denies diarrhea, Denies nausea, Denies vomiting Musculoskeletal: Denies myalgias Integumentary: Denies pruritus, Denies rash Neurological: Denies numbness, Denies weakness Psychiatric: Denies anxiety, Denies depression Endocrine: Denies fatigue, Denies weight change Past Medical History Past Medical History: Chest Pain / Angina, Hyperlipidemia, Hypertension History of Any Multi-Drug Resistant Organisms: None Reported Past Surgical History: Hernia Repair, Orthopedic Surgery, Tonsillectomy Additional Past Surgical History / Comment(s): left knee scope Past Anesthesia/Blood Transfusion Reactions: No Reported Reaction Past Psychological History: No Psychological Hx Reported Smoking Status: Never smoker Past Alcohol Use History: None Reported Past Drug Use History: None Reported - Past Family History Father Family Medical History: Hypertension Mother Family Medical History: Cancer, Hypertension Medications and Allergies Home Medications Medication Instructions Recorded Confirmed Type Ibuprofen [Motrin] 800 mg PO DAILY PRN 11/25/16 10/21/18 History Allergies Allergy/AdvReac Type Severity Reaction Status Date / Time No Known Allergies Allergy Verified 10/21/18 11:14 Physical Exam Vitals: Vital Signs Temp Pulse Pulse Resp BP Pulse Ox 10/24/18 11:38 97.5 F L 58 L 16 123/75 95 10/24/18 08:00 97.7 F 61 16 127/72 93 L 10/24/18 04:00 98.1 F 59 L 18 138/79 94 L 10/24/18 00:00 96.8 F L 51 L 18 156/78 93 L 10/23/18 23:00 96.8 F L 51 L 18 156/78 93 L 10/23/18 20:00 98.0 F 54 L 52 L 18 147/67 96 10/23/18 16:00 98.1 F 51 L 18 129/74 96 Intake and Output 10/24/18 10/24/18 10/24/18 06:59 14:59 22:59 Intake Total 720 Balance 720 Intake: Oral 720 Other: Voiding Method Toilet # Voids 1 2 Weight 133.8 kg GENERAL EXAM: Alert, pleasant, 48-year-old white male comfortable in no apparent distress. HEAD: Normocephalic/atraumatic. EYES: Normal reaction of pupils, equal size. Conjunctiva pink, sclera white. NOSE: Clear with pink turbinates. THROAT: No erythema or exudates. NECK: No masses, no JVD, no thyroid enlargement, no adenopathy. CHEST: No chest wall deformity. Symmetrical expansion. LUNGS: Equal air entry with no crackles, wheeze, rhonchi or dullness. CVS: Regular rate and rhythm, normal S1 and S2, no gallops, no murmurs, no rubs ABDOMEN: Soft, nontender. No hepatosplenomegaly, normal bowel sounds, no guarding or rigidity. EXTREMITIES: No clubbing, no edema, no cyanosis, 2+ pulses and upper and lower extremities. MUSCULOSKELETAL: Muscle strength and tone normal. SPINE: No scoliosis or deformity SKIN: No rashes CENTRAL NERVOUS SYSTEM: Alert and oriented -3. No focal deficits, tone is normal in all 4 extremities. PSYCHIATRIC: Alert and oriented -3. Appropriate affect. Intact judgment and insight. Results - Laboratory Findings CBC and BMP: 10/24/18 07:25 10/24/18 07:25 PT/INR, D-dimer PT 10.1 sec (9.0-12.0) 10/24/18 07:25 INR 0.9 (<1.2) 10/24/18 07:25 D-Dimer 0.36 mg/L FEU (<0.60) 10/21/18 11:36 Abnormal lab findings: Abnormal Labs 10/21/18 10/21/18 10/22/18 11:36 18:35 02:15 APTT 34.4 H Chloride 113 H Carbon Dioxide 19 L Creatinine Glucose Triglycerides 195 H HDL Cholesterol 33 L 10/22/18 10/24/18 02:15 07:25 APTT 49.5 H Chloride Carbon Dioxide Creatinine 1.30 H Glucose 128 H Triglycerides HDL Cholesterol - Diagnostic Findings Chest x-ray: report reviewed, image reviewed Additional studies: EKG reviewed, results of the ultrasound Doppler, heart catheterization, echocardiogram reviewed Assessment and Plan Plan: Assessment: #1. Severe symptomatic multivessel coronary artery disease #2. Exertional chest pain and shortness of breath due to the above #3. Hypertension #4. Dyslipidemia #5. Lifetime nonsmoker Plan: PFT has been reviewed, chest x-ray has been reviewed by Dr. Laws, patient was seen and evaluated by Dr. Laws, from pulmonary perspective patient is a low surgical risk, and encourage deep breathing and coughing, incentive spirometry use. Continue to follow I performed a history & physical examination of the patient and discussed their management with my nurse practitioner, Sue Caceres. I reviewed the nurse practitioner's note and agree with the documented findings and plan of care. Lung sounds are clear. The findings and the impression was discussed with the patient. I attest to the documentation by the nurse practitioner. Time with Patient: Greater than 30
[2018-10-24] MEDS: ACETAMINOPHEN TAB 500 MG TAB PO PRN (17:10)
[2018-10-24 18:40] LABS: Hemoglobin A1C 5.7 % (4.0-6.0)
--- NOTE | 2018-10-24 20:56 | PN ---
PROGRESS NOTE DATE OF SERVICE: 10/24/2018 PRESENTING COMPLAINT: Chest pain. INTERVAL HISTORY: Patient admitted with unstable angina. Cardiac cath showed severe triple-vessel disease. He is being scheduled for outpatient coronary artery bypass. Still having episodes of chest pain. Nitrates were added earlier today. Up to the bathroom. Family is present, including his . REVIEW OF SYSTEMS: Done for constitutional, cardiovascular, GI, pulmonary; relevant findings as above. CURRENT MEDICATIONS: Reviewed. They include Imdur 60 mg, Lopressor 12.5 b.i.d. PHYSICAL EXAMINATION: Temperature 97.5, pulse 58, respiration 16, blood pressure 123/75, pulse ox 95% on room air. GENERAL APPEARANCE: Sitting up. Comfortable. EYES: Pupils equal. Conjunctivae normal. NECK: JVD not raised. Mass not palpable. RESPIRATORY: Effort normal. Lungs are clear. CARDIOVASCULAR: First and second sounds normal. No edema. ABDOMEN: Soft, non-tender. Liver and spleen not palpable. PSYCHIATRY: Alert and oriented x3. Mood and affect normal. INVESTIGATIONS: White count 9.8, hemoglobin 16, potassium 4.4, BUN 15, creatinine 1.30. TSH normal. ASSESSMENT: 1. Unstable angina in a patient with severe triple-vessel disease per cardiac catheterization. 2. Coronary artery disease, pending coronary artery bypass. 3. Obesity, body mass index of 35. 4. Hyperlipidemia. PLAN: Nitrates were added. Will see how patient does. Patient does get headaches with nitrates. Told to take Tylenol as required. Will follow. MMGET / BENIGNON: [id number] /
[2018-10-25] MEDS: ASPIRIN 325 MG TAB PO SCH (08:25)
[2018-10-25] MEDS: ISOSORBIDE MONONITRATE ER 60 MG TAB.ER.24H PO SCH (08:25)
[2018-10-25] MEDS: METOPROLOL TARTRATE 12.5 MG TAB PO SCH ×2 (08:25→20:09)
[2018-10-25] MEDS: ATORVASTATIN 80 MG TAB PO SCH (08:25)
[2018-10-25] MEDS: MUPIROCIN 2% OINT 22 GM TUBE TOPICAL SCH ×2 (08:26→20:10)
[2018-10-25] MEDS ORDERED: MD COMMUNICATION TO PHARMACY 1 EACH MISC PO ONE (10:40)
--- NOTE | 2018-10-25 11:51 | P.PN ---
Subjective Progress Note Date: 10/25/18 Principal diagnosis: Severe coronary artery disease This is a pleasant 48-year-old gentleman with a past medical history significant for hypertension and dyslipidemia who presented to the hospital was chest discomfort with classical anginal symptoms. He was ruled out for acute coronary event. He underwent a heart catheterization and that revealed severe triple- vessel coronary artery disease. The RCA has a critical lesion, the left circumflex is chronically occluded, and the LAD has a critical lesion as well. I did advise for the patient to be seen by cardiothoracic surgeon for evaluation of coronary artery that is grafting. He was seen by the surgeon and the plan is to pursue with coronary artery bypass grafting as an outpatient. The echo revealed normal LV function. On follow-up with the patient today, 08/25/2018, he did have some chest discomfort yesterday in spite of increasing the dose of oral nitrate to 60 mg daily. The plan is to keep the patient will the day after tomorrow to undergo his coronary artery bypass grafting. His vital signs are within normal limits. His heart rate is well blocked on the current medical regimen with metoprolol. Objective - Vital Signs Vital signs: Vital Signs Temp 97.7 F 10/25/18 07:39 Pulse 61 10/25/18 07:39 Resp 16 10/25/18 07:39 BP 129/90 10/25/18 07:39 Pulse Ox 95 10/25/18 07:39 Intake & Output 10/24/18 10/25/18 10/25/18 18:59 06:59 18:59 Intake Total 960 480 Balance 960 480 Weight 134 kg Intake: Oral 960 480 Other: Voiding Method Toilet # Voids 2 1 1 - Constitutional General appearance: Present: no acute distress - Respiratory Respiratory: bilateral: CTA - Cardiovascular Rhythm: regular Heart sounds: normal: S1, S2 - Labs CBC & Chem 7: 10/24/18 07:25 10/24/18 07:25 Labs: Abnormal Lab Results - Last 24 Hours (Table) 10/24/18 Range/Units 07:25 Crossmatch See Detail Microbiology - Last 24 Hours (Table) 10/23/18 17:00 Nasal Screen MRSA/MSSA - Final Nasal Swab 10/23/18 17:00 Urine Culture - Final Urine,Clean Catch Assessment and Plan Assessment: Assessment #1 severe triple-vessel coronary artery disease #2 hypertension #3 dyslipidemia Plan #1 continue the current medical regimen #2 continue the current dose of Imdur 60 mg daily #3 follow-up with the patient #4 keep the patient for additional 24 hours
--- NOTE | 2018-10-25 13:08 | P.PN ---
Subjective Progress Note Date: 10/25/18 Principal diagnosis: Severe triple vessel coronary artery disease. History of hypertension and family history of hypertension. The patient's currently sitting up at the bedside in no acute distress. Denies any chest pain last night although he did have chest pain yesterday at rest. Denies shortness of breath. Further questions answered. Objective - Vital Signs Vital signs: Vital Signs Temp 97.7 F 10/25/18 07:39 Pulse 54 L 10/25/18 12:00 Resp 16 10/25/18 12:00 BP 117/76 10/25/18 12:00 Pulse Ox 93 L 10/25/18 12:00 Intake & Output 10/24/18 10/25/18 10/25/18 18:59 06:59 18:59 Intake Total 960 720 Balance 960 720 Weight 134 kg Intake: Oral 960 720 Other: Voiding Method Toilet # Voids 2 1 1 - Constitutional General appearance: Present: cooperative, no acute distress, obese - Respiratory Details: Lungs sounds clear bilaterally. Respirations even, nonlabored. Currently on room air with oxygen saturation 93%. Able to achieve 4000 mL on his incentive spirometry. - Cardiovascular Details: S1, S2 present. Slow but regular rate and rhythm, sinus bradycardia on telemetry. Palpable peripheral pulses bilaterally. No edema present. No calf pain or tenderness noted. - Gastrointestinal Gastrointestinal Comment(s): Abdomen soft, nontender, nondistended. Active bowel sounds present 4 quadrants. Tolerating diet. - Genitourinary Genitourinary Comment(s): Voiding clear, yellow urine. - Integumentary Integumentary Comment(s): Skin is warm and dry with evidence of good perfusion. - Neurologic Neurologic: Present: CNII-XII intact - Musculoskeletal Musculoskeletal: Present: gait normal, strength equal bilaterally - Psychiatric Psychiatric: Present: A&O x's 3, appropriate affect, intact judgment & insight - Allied health notes Allied health notes reviewed: nursing - Labs CBC & Chem 7: 10/24/18 07:25 10/24/18 07:25 Labs: Abnormal Lab Results - Last 24 Hours (Table) 10/24/18 Range/Units 07:25 Crossmatch See Detail Microbiology - Last 24 Hours (Table) 10/23/18 17:00 Nasal Screen MRSA/MSSA - Final Nasal Swab 05/05/19 17:00 Urine Culture - Final Urine,Clean Catch Assessment and Plan Assessment: 1. Severe triple-vessel coronary artery disease, continuing chest pain 2. History of hypertension 3. Family history of hypertension 4. Never smoker with preoperative FEV1 102% of predicted Plan: 1. Continue aspirin, statin, beta flako therapy. Imdur added per cardiology 2. Due to the patient's symptoms, plan for surgery has been moved up, urgent CABG to be completed by Dr. Brandt on , 10/27/2018. This was discussed with Dr. Loja and with the patient/family and all are in agreement. 3. Encourage incentive spirometry use. 4. Will monitor labs. 5. Continue supportive care. Continue preoperative teaching. 6. Medical management per Dr. Loja, Dr. Herring. Time with Patient: Greater than 30
--- NOTE | 2018-10-25 14:15 | PN ---
PROGRESS NOTE DATE OF SERVICE: 10/25/2018 PRESENTING COMPLAINT: Chest pain. INTERVAL HISTORY: Patient admitted for unstable angina. Cardiac cath showed severe triple-vessel disease. Tolerating nitrates, headache is better. Patient's coronary bypass now being to this coming . Overall doing better. REVIEW OF SYSTEMS: Done for constitutional, cardiovascular, GI, pulmonary; relevant findings as above. CURRENT MEDICATIONS: Reviewed. PHYSICAL EXAMINATION: Temperature 97.7, pulse 51, respiration 16, blood pressure 129/90, pulse ox 95% on room air. GENERAL APPEARANCE: Lying in bed, comfortable. EYES: Pupils equal, conjunctivae normal. NECK: JVD not raised. Mass not palpable. RESPIRATORY: Effort normal. LUNGS: Clear. CARDIOVASCULAR: First and second sounds normal, no edema. ABDOMEN: Soft, nontender. Liver and spleen not palpable. PSYCHIATRY: Alert and oriented x3. Mood and affect normal. INVESTIGATIONS: White count 9.8, hemoglobin 16, potassium 4.4, BUN 15, creatinine 1.30. ASSESSMENT: 1. Unstable angina, patient with known severe triple-vessel disease, now coronary bypass scheduled for this . 2. Coronary artery disease. 3. Obesity, body mass index 35. 4. Hyperlipidemia. PLAN: Continue current medication and treatment plan. Will check a repeat BMP today. MMODL / IJN: [id number] /
[2018-10-25 14:31] LABS: Calcium 9.9 mg/dL (8.4-10.2)
[2018-10-25 14:33] LABS: Potassium 5.7 mmol/L (3.5-5.1)
[2018-10-26 06:34] LABS: Basophils # (A) 0.1 k/uL (0-0.2); Basophils % (A) 1 %; Eosinophils # (A) 0.1 k/uL (0-0.7); Eosinophils % (A) 2 %; HCT 47.7 % (39.0-53.0); HGB 15.9 gm/dL (13.0-17.5); Lymphocytes # (A) 2.5 k/uL (1.0-4.8); Lymphocytes % (A) 31 %; MCH 29.1 pg (25.0-35.0); MCHC 33.4 g/dL (31.0-37.0); MCV 87.3 fL (80.0-100.0); Mean Platelet Volume 7.8; Monocytes # (A) 0.4 k/uL (0-1.0); Monocytes % (A) 4 %; Neutrophils # (A) 4.9 k/uL (1.3-7.7); Neutrophils % (A) 60 %; Platelet Count 215 k/uL (150-450); RBC 5.46 m/uL (4.30-5.90); RDW 15.3 % (11.5-15.5); WBC 8.2 k/uL (3.8-10.6)
[2018-10-26 06:41] LABS: INR 0.9 (<1.2); Partial Thromboplastin Time 24.3 sec (22.0-30.0); Prothrombin Time 10.2 sec (9.0-12.0)
[2018-10-26 06:50] LABS: Albumin 4.2 g/dL (3.5-5.0); Calcium 9.3 mg/dL (8.4-10.2); Potassium 4.6 mmol/L (3.5-5.1); Total Bilirubin 0.9 mg/dL (0.2-1.3); Total Protein 6.9 g/dL (6.3-8.2)
--- NOTE | 2018-10-26 07:56 | P.PN ---
Subjective Progress Note Date: 10/26/18 Principal diagnosis: Severe triple vessel coronary artery disease. History of hypertension and family history of hypertension. The patient's currently sitting up at the bedside in no acute distress. Denies any complaints of pain or shortness of breath. He is a family member at his bedside and her questions were answered to the best of my ability. He reports that he has been ambulating in the 3 S cardiac stepdown unit. He remains hemodynamically stable and afebrile. Objective - Vital Signs Vital signs: Vital Signs Temp 97.7 F 10/26/18 04:10 Pulse 60 10/26/18 04:10 Resp 16 10/26/18 04:10 BP 121/76 10/26/18 04:10 Pulse Ox 94 L 10/26/18 04:10 Intake & Output 10/25/18 10/26/18 10/26/18 18:59 06:59 18:59 Intake Total 970 490 Balance 970 490 Weight 132.7 kg Intake: IV 10 10 0.9 10 Invasive Line 2 10 Oral 960 480 Other: Voiding Method Toilet # Voids 2 4 - Constitutional General appearance: Present: cooperative, no acute distress, obese - Respiratory Details: Lung sounds essentially clear throughout. Respirations are symmetrical and nonlabored. Oxygen saturation are 94% on room air. Achieving 5000 mL on his incentive spirometry. FEV1 completed which demonstrated a predicted value of 102%. - Cardiovascular Details: Regular rhythm and rate. S1 and S2 present, negative for S3, gallop or murmur. No edema present. Remote telemetry showing normal sinus rhythm heart rate 69. - Gastrointestinal Gastrointestinal Comment(s): Abdomen is soft, nontender and nondistended. Active bowel sounds all 4 abdominal quadrants. No guarding or rigidity. No organomegaly. tolerating oral intake. - Genitourinary Genitourinary Comment(s): Voiding clear yellow urine. - Integumentary Integumentary Comment(s): Skin is warm and dry. No clubbing or cyanosis is present. No rash or abnormal pigmentation is present. - Neurologic Neurologic: Present: CNII-XII intact - Musculoskeletal Musculoskeletal: Present: gait normal, strength equal bilaterally - Psychiatric Psychiatric: Present: A&O x's 3, appropriate affect, intact judgment & insight - Allied health notes Allied health notes reviewed: nursing - Labs CBC & Chem 7: 10/26/18 05:55 10/26/18 05:55 Labs: Abnormal Lab Results - Last 24 Hours (Table) 10/24/18 10/25/18 10/26/18 Range/Units 07:25 13:30 05:55 Potassium 5.7 H (3.5-5.1) mmol/L Chloride 112 H 108 H (98-107) mmol/L Carbon Dioxide 18 L (22-30) mmol/L Glucose 117 H (74-99) mg/dL Crossmatch See Detail Assessment and Plan Assessment: 1. Severe triple-vessel coronary artery disease, continuing chest pain 2. History of hypertension 3. Family history of hypertension 4. Never smoker with preoperative FEV1 102% of predicted) Plan: 1. Continue aspirin, statin, Imdur, and beta flako. 2. He is scheduled for urgent myocardial revascularization with left internal mammary artery, endovascular vein harvest, possible left radial artery harvest, possible right internal mammary artery, intraoperative transesophageal echocardiogram and epi-aortic ultrasound to be completed by Dr. Brandt on , 10/27/2018. This was discussed with Dr. Loja and with the patient/family and all are in agreement. 3. Encourage incentive spirometry use every hour while awake. 4. Will continue to monitor labs. 5. Continue supportive care. Continue preoperative teaching. 6. Medical management per Dr. Loja, Dr. Herring. 7. Nothing by mouth after midnight. 8. More recommendations to follow based on patient's clinical course. Time with Patient: Greater than 30
[2018-10-26] MEDS: ISOSORBIDE MONONITRATE ER 60 MG TAB.ER.24H PO SCH (08:53)
[2018-10-26] MEDS: ATORVASTATIN 80 MG TAB PO SCH (08:53)
[2018-10-26] MEDS: ASPIRIN 325 MG TAB PO SCH ×2 (08:54→20:03)
[2018-10-26] MEDS: METOPROLOL TARTRATE 12.5 MG TAB PO SCH ×3 (08:54→20:47)
[2018-10-26] MEDS: MUPIROCIN 2% OINT 22 GM TUBE TOPICAL SCH ×2 (08:54→20:49)
--- NOTE | 2018-10-26 10:53 | P.PN ---
Subjective Progress Note Date: 10/26/18 Principal diagnosis: Severe coronary artery disease This is a pleasant 48-year-old gentleman with a past medical history significant for hypertension and dyslipidemia who presented to the hospital was chest discomfort with classical anginal symptoms. He was ruled out for acute coronary event. He underwent a heart catheterization and that revealed severe triple- vessel coronary artery disease. The RCA has a critical lesion, the left circumflex is chronically occluded, and the LAD has a critical lesion as well. I did advise for the patient to be seen by cardiothoracic surgeon for evaluation of coronary artery that is grafting. He was seen by the surgeon and the plan is to pursue with coronary artery bypass grafting as an outpatient. The echo revealed normal LV function. On follow-up with the patient today, 10/26/2018, he is asymptomatic from a cardiovascular standpoint of view. He is on maximize medical treatment. The plan is to proceed with CABG tomorrow morning. Objective - Vital Signs Vital signs: Vital Signs Temp 97.8 F 10/26/18 08:00 Pulse 64 10/26/18 08:00 Resp 16 10/26/18 08:00 BP 132/83 10/26/18 08:00 Pulse Ox 98 10/26/18 08:00 Intake & Output 10/25/18 10/26/18 10/26/18 18:59 06:59 18:59 Intake Total 970 490 Balance 970 490 Weight 132.7 kg Intake: IV 10 10 0.9 10 Invasive Line 2 10 Oral 960 480 Other: Voiding Method Toilet Toilet # Voids 2 4 - Constitutional General appearance: Present: no acute distress - Respiratory Respiratory: bilateral: CTA - Cardiovascular Rhythm: regular Heart sounds: normal: S1, S2 - Labs CBC & Chem 7: 10/26/18 05:55 10/26/18 05:55 Labs: Abnormal Lab Results - Last 24 Hours (Table) 10/24/18 10/25/18 10/26/18 Range/Units 07:25 13:30 05:55 Potassium 5.7 H (3.5-5.1) mmol/L Chloride 112 H (98-107) mmol/L Carbon Dioxide 18 L (22-30) mmol/L Glucose 117 H (74-99) mg/dL Crossmatch See Detail See Detail 10/26/18 Range/Units 05:55 Potassium (3.5-5.1) mmol/L Chloride 108 H (98-107) mmol/L Carbon Dioxide (22-30) mmol/L Glucose (74-99) mg/dL Crossmatch Assessment and Plan Assessment: Assessment #1 severe triple-vessel coronary artery disease #2 hypertension #3 dyslipidemia Plan #1 continue the current medical regimen #2 continue the current dose of Imdur 60 mg daily #3 follow-up with the patient #4 CABG tomorrow
--- NOTE | 2018-10-26 14:11 | P.VSCSTY ---
Greater Saphenous Vein Mapping This is bilateral lower extremity greater saphenous vein mapping. Date of service 10/23/2018 Vein quality and ultrasound appearance we see no endoluminal thrombus or wall changes. Vein size groin right 6.5 x 5.8 groin left 6.2 x 5.2 High thigh right 5.5 x 4.9 high thigh left 5.6 x 4.4 Mid thigh right 5.1 x 4.9 mid thigh left 3.6 x 3.3 Above-knee right 5.0 x 5.3 above- knee left 3.5 x 3.4 Below knee right 2.9 x 2.4 below-knee left 3.0 x 3.6 Mid calf right 1.7 x 1.6 mid calf left 3.3 x 3.2 Ankle right 2.7 x 2.4 ankle left 3.6 x 3.7 Impression usable bilateral greater saphenous vein.
--- NOTE | 2018-10-26 21:07 | PN ---
PROGRESS NOTE DATE OF SERVICE: 10/26/2018 PRESENTING COMPLAINT: Chest pain. INTERVAL HISTORY: Patient was admitted with unstable angina. Cardiac cath showed severe triple-vessel disease. Patient has also had some chest pain today. Plans are being done for a coronary artery bypass this coming . Did tolerate his diet. REVIEW OF SYSTEMS: Done for constitutional, cardiovascular, GI, pulmonary; relevant findings as above. CURRENT MEDICATIONS: Reviewed. PHYSICAL EXAMINATION: Temperature 98.2, pulse 56, respiration 16, blood pressure 120/66, pulse ox 95% on room air. GENERAL APPEARANCE: Sitting up. Awake. EYES: Pupils equal. Conjunctivae normal. NECK: JVD not raised. Mass not palpable. RESPIRATORY: Effort normal. Lungs are clear. CARDIOVASCULAR: First and second sounds normal. No edema. ABDOMEN: Soft, non-tender. Liver and spleen not palpable. PSYCHIATRY: Alert and oriented x3. Mood and affect normal. INVESTIGATIONS: White count 8.2, hemoglobin 15.9, potassium 4.6. BUN and creatinine normal. ASSESSMENT: 1. Unstable angina in a patient with known severe triple-vessel coronary artery disease, pending bypass. 2. Coronary artery disease. 3. Obesity, body mass index 35. 4. Hyperlipidemia. PLAN: Continue current medication and treatment plan. Care was discussed with the patient. Awaiting coronary artery bypass. MMODL / IJN: [id number] /
[2018-10-27] MEDS ORDERED: PROTAMINE SULFATE 250 MG in EMPTY BAG 1 BAG IV ONE (05:00)
[2018-10-27] MEDS ORDERED: PHENYLEPHRINE 40 MG in SODIUM CHLORIDE 0.9% 250 ML IV ONE (05:00)
[2018-10-27] MEDS ORDERED: TRANEXAMIC ACID 2,000 MG in SODIUM CHLORIDE 0.9% 80 ML IV ONE ×2 (05:00→06:00)
[2018-10-27] MEDS ORDERED: METOPROLOL TARTRATE 12.5 MG TAB PO ONE (05:00)
[2018-10-27] MEDS ORDERED: LACTATED RINGERS 1,000 ML IV SCH (05:00)
[2018-10-27] MEDS ORDERED: ceFAZolin 1,000 MG in SODIUM CHLORIDE 0.9% IRRIGATIO 1,000 ML IRRIGATION ONE (05:00)
[2018-10-27] MEDS ORDERED: ATORVASTATIN 10 MG TAB PO ONE (05:00)
[2018-10-27] MEDS ORDERED: ALBUMIN HUMAN 5% 500 ML in EMPTY BAG 1 BAG IVPB ONE ×6 (05:00)
[2018-10-27] MEDS ORDERED: SODIUM BICARB 8.4% 50 ML SYR (1 MEQ/ML) IV ONE (05:00)
[2018-10-27] MEDS ORDERED: MANNITOL 25% 12.5 GM/50 ML VIAL IV ONE ×2 (05:00)
[2018-10-27] MEDS ORDERED: HEPARIN SODIUM 1,000 UN/ML (10ML VL) IV ONE (05:00)
[2018-10-27] MEDS ORDERED: DEXTROSE 5% IN WATER 1,000 ML with POTASSIUM CHLORIDE 25 MEQ, SODIUM CHLORIDE 2.5MEQ/ML... IV SCH ×6 (05:00)
[2018-10-27] MEDS ORDERED: ALBUMIN HUMAN 25% 50 ML in EMPTY BAG 1 BAG IVPB ONE (05:00)
[2018-10-27] MEDS ORDERED: HEPARIN SODIUM,PORCINE 5,000 UNIT in SODIUM CHLORIDE 0.9% 500 ML 500 ML IV ONE (05:00)
[2018-10-27] MEDS ORDERED: PAPAVERINE 360 MG in SODIUM CHLORIDE 0.9% 90 ML IV ONE (05:00)
[2018-10-27] MEDS ORDERED: NOREPINEPHRINE 4 MG in SODIUM CHLORIDE 0.9% 250 ML IV SCH (05:00)
[2018-10-27] MEDS ORDERED: PROTAMINE SULFATE 10 MG/ML 25 ML VIAL IV ONE ×2 (05:00→07:31)
[2018-10-27] MEDS ORDERED: ceFAZolin 2 GM in SODIUM CHLORIDE 0.9% 30 ML IVPB ONE (05:00)
[2018-10-27] MEDS ORDERED: ceFAZolin 2,000 MG in SODIUM CHLORIDE 0.9% 30 ML IVPB ONE (05:00)
[2018-10-27] MEDS ORDERED: PROPOFOL 1,000 MG in EMPTY BAG 1 BAG IV PRN (05:00)
[2018-10-27] MEDS ORDERED: NITROGLYCERIN-D5W PMX 25 MG/250 ML BTL IV ONE (05:00)
[2018-10-27] MEDS ORDERED: MAGNESIUM SULFATE SYG 4.06 MEQ/ML SYRINGE IV ONE (05:00)
[2018-10-27] MEDS ORDERED: DILTIAZEM 125 MG in SODIUM CHLORIDE 0.9% 100 ML IV SCH (05:00)
[2018-10-27] MEDS ORDERED: CLEVIDIPINE BUTYRATE 25 MG in EMPTY BAG 1 BAG IV SCH (05:00)
[2018-10-27] MEDS ORDERED: CALCIUM CHLORIDE 100 MG/ML 10 ML SYRINGE IVP ONE (05:00)
[2018-10-27] MEDS ORDERED: DEXTROSE 5% IN WATER 1,000 ML with POTASSIUM CHLORIDE 110 MEQ, MAGNESIUM SULFATE 16 MEQ... IV SCH ×5 (05:00)
[2018-10-27] MEDS ORDERED: CHLORHEXIDINE GLUCONATE 15 ML CUP MUCOUS MEM ONE (05:00)
[2018-10-27 05:52] LABS: HGB 16.7 gm/dL (13.0-17.5); MCH 29.4 pg (25.0-35.0); MCHC 33.3 g/dL (31.0-37.0); MCV 88.2 fL (80.0-100.0); Platelet Count 237 k/uL (150-450); RBC 5.67 m/uL (4.30-5.90); RDW 15.2 % (11.5-15.5); WBC 8.4 k/uL (3.8-10.6)
[2018-10-27 05:54] LABS: Calcium 9.7 mg/dL (8.4-10.2); Potassium 4.3 mmol/L (3.5-5.1)
[2018-10-27 05:55] LABS: INR 0.9 (<1.2)
[2018-10-27] MEDS ORDERED: PROPOFOL 10 MG/ML 20 ML VIAL IV ONE (07:31)
[2018-10-27] MEDS ORDERED: GLYCOPYRROLATE 0.2 MG/ML 2 ML VIAL ONE (07:31)
[2018-10-27] MEDS ORDERED: LIDOCAINE 1% INJ 10MG/ML (20 ML MDV) ONE (07:31)
[2018-10-27] MEDS ORDERED: MIDAZOLAM 2 MG/2 ML VIAL ONE (07:31)
[2018-10-27] MEDS ORDERED: MAGNESIUM SULFATE 4 MEQ/ML 10ML VIAL ONE (07:31)
[2018-10-27] MEDS ORDERED: PROTAMINE SULFATE 10 MG/ML 5 ML VIAL IV ONE (07:31)
[2018-10-27] MEDS ORDERED: fentaNYL (PF) 50 MCG/ML 2 ML AMP ONE (07:31)
[2018-10-27] MEDS ORDERED: fentaNYL (PF) 50 MCG/ML 50 ML VIAL ONE (07:31)
[2018-10-27] MEDS ORDERED: HEPARIN SODIUM,PORCINE 10,000 UNIT/ML 1 ML VIAL ONE (07:31)
[2018-10-27] MEDS ORDERED: LACTATED RINGERS 1,000 ML BAG IV ONE (07:31)
[2018-10-27] MEDS ORDERED: INSULIN REGULAR 100 UNIT/ML VIAL ONE (07:31)
[2018-10-27] MEDS ORDERED: MORPHINE SULFATE 10 MG/ML SYRINGE ONE (07:31)
[2018-10-27] MEDS ORDERED: SODIUM CHLORIDE 0.9% 250 ML BAG ONE (07:31)
[2018-10-27] MEDS ORDERED: CALCIUM CHLORIDE 100 MG/ML 10 ML SYRINGE ONE (07:31)
[2018-10-27] MEDS ORDERED: ELECTROLYTE-R (PH 7.4) 1,000 ML IV.SOLN IV ONE (07:31)
[2018-10-27] MEDS ORDERED: TRANEXAMIC ACID 1,000 MG/10 ML VIAL ONE (07:31)
[2018-10-27] MEDS ORDERED: PHENYLEPHRINE-0.9% NACL SYG 1 MG/10 ML SYRINGE ONE (07:31)
[2018-10-27] MEDS ORDERED: ePHEDrine SULFATE/0.9% NACL/PF 50 MG/5 ML SYRINGE IV ONE (07:31)
[2018-10-27] MEDS ORDERED: ALBUMIN HUMAN 5% (12.5gm) 250 ML BOTTLE IVPB ONE (07:31)
[2018-10-27] MEDS ORDERED: HEPARIN SODIUM,PORCINE 5,000 UNIT/ML 1 ML VIAL ONE (07:31)
[2018-10-27 08:43] LABS: ABG Base Excess -1.6 mmol/L; ABG HCO3 24 mmol/L (21-25); ABG Oxygen Saturation 99.5 % (94-97); ABG PCO2 40 mmHg (35-45); ABG PH 7.38 (7.35-7.45); ABG PO2 172 mmHg (83-108); ABG Potassium Whole Blood 4.5 mmol/L (3.4-4.5); ABG Sodium Whole Blood 140 mmol/L (135-146); ABG TCO2 25 mmol/L (19-24)
[2018-10-27] MEDS ORDERED: PHENYLEPHRINE 10 MG/ML VIAL IV ONE (10:40)
[2018-10-27 12:02] LABS: ABG Base Excess -3.5 mmol/L; ABG HCO3 23 mmol/L (21-25); ABG Oxygen Saturation 99.6 % (94-97); ABG PCO2 47 mmHg (35-45); ABG PO2 200 mmHg (83-108); ABG Sodium Whole Blood 139 mmol/L (135-146); ABG TCO2 25 mmol/L (19-24)
[2018-10-27 12:47] LABS: ABG Base Excess -0.4 mmol/L; ABG HCO3 25 mmol/L (21-25); ABG PCO2 41 mmHg (35-45); ABG PH 7.39 (7.35-7.45); ABG Potassium Whole Blood 4.9 mmol/L (3.4-4.5); ABG Sodium Whole Blood 136 mmol/L (135-146); ABG TCO2 26 mmol/L (19-24)
[2018-10-27 13:18] LABS: ABG Base Excess -1.5 mmol/L; ABG HCO3 24 mmol/L (21-25); ABG Oxygen Saturation 99.8 % (94-97); ABG PCO2 45 mmHg (35-45); ABG PH 7.34 (7.35-7.45); ABG PO2 231 mmHg (83-108); ABG Potassium Whole Blood 5.5 mmol/L (3.4-4.5); ABG Sodium Whole Blood 135 mmol/L (135-146); ABG TCO2 26 mmol/L (19-24)
[2018-10-27 13:20] LABS: Hepatitis A Antibody IgM Non-Reactive (Non-Reactive); Hepatitis B Core IgM Non-Reactive (Non-Reactive)
[2018-10-27 13:41] LABS: ABG Base Excess -2.2 mmol/L; ABG HCO3 24 mmol/L (21-25); ABG Oxygen Saturation 99.8 % (94-97); ABG PCO2 46 mmHg (35-45); ABG PH 7.33 (7.35-7.45); ABG PO2 210 mmHg (83-108); ABG Potassium Whole Blood 5.2 mmol/L (3.4-4.5); ABG Sodium Whole Blood 136 mmol/L (135-146); ABG TCO2 25 mmol/L (19-24)
[2018-10-27 14:11] LABS: ABG Base Excess -0.2 mmol/L; ABG HCO3 25 mmol/L (21-25); ABG PCO2 44 mmHg (35-45); ABG PH 7.37 (7.35-7.45); ABG PO2 357 mmHg (83-108); ABG Potassium Whole Blood 4.9 mmol/L (3.4-4.5); ABG Sodium Whole Blood 137 mmol/L (135-146); ABG TCO2 27 mmol/L (19-24)
[2018-10-27 14:41] LABS: ABG Base Excess -0.6 mmol/L; ABG HCO3 25 mmol/L (21-25); ABG PCO2 43 mmHg (35-45); ABG PH 7.37 (7.35-7.45); ABG PO2 257 mmHg (83-108); ABG Potassium Whole Blood 4.9 mmol/L (3.4-4.5); ABG Sodium Whole Blood 137 mmol/L (135-146); ABG TCO2 26 mmol/L (19-24)
[2018-10-27 14:49] LABS: ABG PO2 >420 mmHg (83-108)
[2018-10-27 16:07] LABS: ABG Base Excess -1.4 mmol/L; ABG HCO3 25 mmol/L (21-25); ABG Oxygen Saturation 99.6 % (94-97); ABG PCO2 46 mmHg (35-45); ABG PH 7.34 (7.35-7.45); ABG PO2 186 mmHg (83-108); ABG Potassium Whole Blood 4.5 mmol/L (3.4-4.5); ABG Sodium Whole Blood 139 mmol/L (135-146); ABG TCO2 26 mmol/L (19-24)
[2018-10-27] MEDS ORDERED: AMIODARONE 300 MG in DEXTROSE 5% IN WATER 250 ML IV PRN ×2 (16:37)
[2018-10-27] MEDS ORDERED: Potassium Replacement Protocol 1 EACH MISC MISCELLANE PRN (16:37)
[2018-10-27] MEDS ORDERED: IPRATROPIUM-ALBUTEROL 3 ML NEB INHALATION PRN (16:37)
[2018-10-27] MEDS ORDERED: Magnesium Replacement Protocol 1 EACH MISC MISCELLANE PRN (16:37)
[2018-10-27] MEDS ORDERED: BENZOCAINE/MENTHOL LOZENG 1 EACH LOZENGE MUCOUS MEM PRN (16:37)
[2018-10-27] MEDS ORDERED: CALCIUM GLUCONATE 2 GM in SODIUM CHLORIDE 0.9% 100 ML IVPB PRN (16:37)
[2018-10-27] MEDS ORDERED: AMIODARONE 360 MG in DEXTROSE 5% IN WATER 200 ML IV PRN ×2 (16:37)
[2018-10-27] MEDS ORDERED: DEXTROSE 5% IN WATER 100 ML with AMIODARONE 150 MG IV PRN (16:37)
[2018-10-27] MEDS ORDERED: MORPHINE SULFATE 2 MG/ML SYRINGE IVP PRN (16:37)
[2018-10-27] MEDS ORDERED: Phosphorus Replacement Protoco 1 EACH MISC MISCELLANE PRN (16:37)
[2018-10-27] MEDS ORDERED: PROPOFOL 1,000 MG in EMPTY BAG 1 BAG IV SCH (16:37)
[2018-10-27] MEDS: CLEVIDIPINE BUTYRATE 25 MG in EMPTY BAG 1 BAG IV SCH (17:15)
[2018-10-27] MEDS: NITROGLYCERIN-D5W PMX 50 MG in DEXTROSE/WATER 1 250ML.BAG IV SCH (17:15)
[2018-10-27] MEDS: LACTATED RINGERS 1,000 ML IV SCH (17:15)
[2018-10-27 17:34] LABS: Basophils % (A) 0 %; Eosinophils # (A) 0.1 k/uL (0-0.7); Eosinophils % (A) 1 %; HCT 37.4 % (39.0-53.0); Lymphocytes # (A) 0.8 k/uL (1.0-4.8); Lymphocytes % (A) 11 %; MCH 29.4 pg (25.0-35.0); MCHC 33.8 g/dL (31.0-37.0); MCV 87.2 fL (80.0-100.0); Mean Platelet Volume 8.3; Monocytes # (A) 0.4 k/uL (0-1.0); Monocytes % (A) 5 %; Neutrophils # (A) 6.3 k/uL (1.3-7.7); Neutrophils % (A) 83 %; Platelet Count 129 k/uL (150-450); RBC 4.29 m/uL (4.30-5.90); RDW 14.7 % (11.5-15.5); WBC 7.6 k/uL (3.8-10.6)
[2018-10-27 17:36] LABS: ABG HCO3 26 mmol/L (21-25); ABG Oxygen Saturation 99.1 % (94-97); ABG PCO2 54 mmHg (35-45); ABG PO2 207 mmHg (83-108); ABG TCO2 28 mmol/L (19-24)
[2018-10-27 17:37] LABS: Ionized Calcium 4.9 mg/dL (4.5-5.3)
[2018-10-27 17:41] LABS: Glucose,Whole Blood 123 mg/dL (75-99); HGB 12.6 gm/dL (13.0-17.5)
[2018-10-27 17:44] LABS: INR 1.1 (<1.2); Partial Thromboplastin Time 25.2 sec (22.0-30.0); Prothrombin Time 11.5 sec (9.0-12.0)
[2018-10-27 17:46] LABS: ALT 30 U/L (21-72); AST 37 U/L (17-59); Albumin 3.4 g/dL (3.5-5.0); Alkaline Phosphatase 51 U/L (38-126); Anion Gap 5 mmol/L; Blood Urea Nitrogen 13 mg/dL (9-20); Calcium 8.3 mg/dL (8.4-10.2); Carbon Dioxide 26 mmol/L (22-30); Chloride 108 mmol/L (98-107); Glucose 116 mg/dL (74-99); Magnesium 2.3 mg/dL (1.6-2.3); Potassium 4.9 mmol/L (3.5-5.1); Sodium 139 mmol/L (137-145); Total Bilirubin 1.4 mg/dL (0.2-1.3); Total Protein 5.3 g/dL (6.3-8.2)
--- NOTE | 2018-10-27 17:51 | XR ---
EXAMINATION TYPE: XR chest 1V portable DATE OF EXAM: 10/27/2018 COMPARISON: 10/21/2018 HISTORY: Cardiac surgery TECHNIQUE: Single frontal view of the chest is obtained. FINDINGS: There is no heart failure nor confluent pneumonic infiltrate. Endotracheal tube is 5 cm from the [place]. Right jugular catheter has tip in the main pulmonary arter y. There is a drain over the right cardiac border and also the left chest. I see no pneumothorax. The re is subsegmental atelectasis in the midlung petty. IMPRESSION: Subsegmental atelectasis. No heart failure.
[2018-10-27] MEDS: ACETAMINOPHEN IV (For NPO) 1,000 MG in EMPTY BAG 1 BAG IVPB SCH ×2 (18:23→23:39)
[2018-10-27 18:25] LABS: Glucose,Whole Blood 133 mg/dL (75-99)
[2018-10-27] MEDS: ceFAZolin 3 GM in SODIUM CHLORIDE 0.9% 100 ML IVPB SCH ×2 (18:27→23:41)
[2018-10-27] MEDS: INSULIN REGULAR 100 UNIT in SODIUM CHLORIDE 0.9% 100 ML IV SCH (18:29)
[2018-10-27] MEDS ORDERED: DEXMEDETOMIDINE/0.9% NACL(PMX) 400 MCG in EMPTY BAG 1 BAG IV SCH (18:45)
[2018-10-27] MEDS: ALBUMIN HUMAN 5% 250 ML in EMPTY BAG 1 BAG IVPB PRN ×4 (19:45→22:45)
[2018-10-27] MEDS ORDERED: IPRATROPIUM-ALBUTEROL 3 ML NEB INHALATION SCH (20:00)
[2018-10-27 20:11] LABS: Glucose,Whole Blood 174 mg/dL (75-99)
[2018-10-27 21:37] LABS: Glucose,Whole Blood 178 mg/dL (75-99)
[2018-10-27 21:43] LABS: Basophils % (A) 0 %; Eosinophils % (A) 0 %; HCT 35.3 % (39.0-53.0); HGB 11.8 gm/dL (13.0-17.5); Lymphocytes # (A) 0.7 k/uL (1.0-4.8); Lymphocytes % (A) 8 %; MCH 29.5 pg (25.0-35.0); MCHC 33.4 g/dL (31.0-37.0); MCV 88.4 fL (80.0-100.0); Monocytes # (A) 0.5 k/uL (0-1.0); Monocytes % (A) 6 %; Neutrophils # (A) 7.4 k/uL (1.3-7.7); Neutrophils % (A) 84 %; Platelet Count 163 k/uL (150-450); RBC 3.99 m/uL (4.30-5.90); RDW 14.2 % (11.5-15.5); WBC 8.8 k/uL (3.8-10.6)
[2018-10-27 22:10] LABS: ABG HCO3 22 mmol/L (21-25); ABG Oxygen Saturation 96.7 % (94-97); ABG PCO2 38 mmHg (35-45); ABG PH 7.38 (7.35-7.45); ABG PO2 83 mmHg (83-108); ABG TCO2 23 mmol/L (19-24)
[2018-10-27] MEDS: IPRATROPIUM-ALBUTEROL 3 ML NEB INHALATION SCH (22:54)
[2018-10-27] MEDS: ONDANSETRON 4 MG/2 ML VIAL IVP PRN (23:04)
[2018-10-27] MEDS: MUPIROCIN 2% OINT 22 GM TUBE NASAL SCH (23:16)
[2018-10-27 23:27] LABS: Glucose,Whole Blood 170 mg/dL (75-99)
[2018-10-27] MEDS: HEPARIN SODIUM,PORCINE 5,000 UNIT/ML 1 ML VIAL SQ SCH (23:41)
[2018-10-27 23:47] LABS: Basophils % (A) 0 %; Eosinophils % (A) 0 %; HCT 32.4 % (39.0-53.0); Lymphocytes # (A) 0.4 k/uL (1.0-4.8); Lymphocytes % (A) 5 %; MCHC 33.8 g/dL (31.0-37.0); MCV 88.7 fL (80.0-100.0); Mean Platelet Volume 8.5; Monocytes # (A) 0.3 k/uL (0-1.0); Monocytes % (A) 5 %; Neutrophils # (A) 6.3 k/uL (1.3-7.7); Neutrophils % (A) 89 %; Platelet Count 134 k/uL (150-450); RBC 3.66 m/uL (4.30-5.90); RDW 14.2 % (11.5-15.5); WBC 7.1 k/uL (3.8-10.6)
[2018-10-27] MEDS: CLOPIDOGREL 75 MG TAB PO SCH (23:49)
[2018-10-27] MEDS: ASPIRIN 325 MG TAB PO SCH (23:50)
[2018-10-28 00:23] LABS: Glucose,Whole Blood 147 mg/dL (75-99)
[2018-10-28 01:25] LABS: Glucose,Whole Blood 164 mg/dL (75-99)
[2018-10-28 02:40] LABS: Glucose,Whole Blood 150 mg/dL (75-99)
[2018-10-28 03:42] LABS: Glucose,Whole Blood 147 mg/dL (75-99)
[2018-10-28 04:38] LABS: Glucose,Whole Blood 154 mg/dL (75-99)
[2018-10-28 04:38] LABS: Basophils % (A) 0 %; Eosinophils % (A) 0 %; HCT 33.4 % (39.0-53.0); HGB 11.3 gm/dL (13.0-17.5); Lymphocytes # (A) 0.4 k/uL (1.0-4.8); Lymphocytes % (A) 6 %; MCH 29.4 pg (25.0-35.0); MCHC 33.7 g/dL (31.0-37.0); MCV 87.4 fL (80.0-100.0); Mean Platelet Volume 9.6; Monocytes # (A) 0.4 k/uL (0-1.0); Monocytes % (A) 5 %; Neutrophils # (A) 6.6 k/uL (1.3-7.7); Neutrophils % (A) 88 %; Platelet Count 137 k/uL (150-450); RBC 3.83 m/uL (4.30-5.90); RDW 14.9 % (11.5-15.5); WBC 7.4 k/uL (3.8-10.6)
[2018-10-28 04:45] LABS: Ionized Calcium 4.8 mg/dL (4.5-5.3)
[2018-10-28 04:51] LABS: ALT 27 U/L (21-72); AST 32 U/L (17-59); Albumin 3.8 g/dL (3.5-5.0); Alkaline Phosphatase 34 U/L (38-126); Anion Gap 8 mmol/L; Blood Urea Nitrogen 13 mg/dL (9-20); Calcium 8.7 mg/dL (8.4-10.2); Carbon Dioxide 23 mmol/L (22-30); Chloride 107 mmol/L (98-107); Glucose 142 mg/dL (74-99); Potassium 4.7 mmol/L (3.5-5.1); Sodium 138 mmol/L (137-145); Total Bilirubin 1.2 mg/dL (0.2-1.3); Total Protein 5.5 g/dL (6.3-8.2)
[2018-10-28] MEDS ORDERED: ASPIRIN 325 MG TAB PO ONE (05:00)
[2018-10-28 05:36] LABS: Glucose,Whole Blood 148 mg/dL (75-99)
[2018-10-28] MEDS: ONDANSETRON 4 MG/2 ML VIAL IVP PRN ×3 (06:00→18:36)
[2018-10-28] MEDS ORDERED: HYDROcodone/APAP 5-325MG 1 EACH TAB PO PRN ×4 (06:51→16:32)
[2018-10-28 06:59] LABS: Glucose,Whole Blood 146 mg/dL (75-99)
[2018-10-28] MEDS: METOCLOPRAMIDE 5 MG/ML 2 ML VIAL IVP PRN ×3 (07:06→23:02)
--- NOTE | 2018-10-28 07:13 | XR ---
EXAMINATION TYPE: XR chest 1V portable DATE OF EXAM: 10/28/2018 COMPARISON: 10/27/2018 HISTORY: SOB, Follow Up FINDINGS: Endotracheal tube and NG tube have been removed. Remaining Indwelling tubes and catheters are unchang ed. No change in bibasilar opacities. Stable appearance of the cardio-mediastinal structures at this time. IMPRESSION: 1. Stable portable chest. Clinical correlation and follow up until resolution is recommended.
[2018-10-28] MEDS: KETOROLAC 30 MG/ML 1 ML VIAL IVP SCH ×4 (07:16→23:49)
--- NOTE | 2018-10-28 07:18 | P.PN ---
Subjective Progress Note Date: 10/28/18 Principal diagnosis: Severe coronary artery disease This is a pleasant 48-year-old gentleman with a past medical history significant for hypertension and dyslipidemia who presented to the hospital was chest discomfort with classical anginal symptoms. He was ruled out for acute coronary event. He underwent a heart catheterization and that revealed severe triple- vessel coronary artery disease. The RCA has a critical lesion, the left circumflex is chronically occluded, and the LAD has a critical lesion as well. I did advise for the patient to be seen by cardiothoracic surgeon for evaluation of coronary artery that is grafting. The patient underwent coronary artery bypa ss grafting yesterday, October 272018. On follow-up with him today, October 282018, he is doing good. He was extubated last night. He is hemodynamically stable. He is on dual antiplatelet therapy a long with a statin. Objective - Vital Signs Vital signs: Vital Signs Temp 98.8 F 10/28/18 04:00 Pulse 69 10/28/18 06:30 Resp 24 10/28/18 06:30 BP 121/66 10/28/18 06:15 Pulse Ox 92 L 10/28/18 06:30 Intake & Output 10/27/18 10/28/18 10/28/18 18:59 06:59 18:59 Intake Total 913.713 6080.562 Output Total 3695 1559 Balance -3204.029 681.562 Weight 140.1 kg Intake: IV 93 2149 0.9NS Cardiac Output 50 350 0.9NS Pressure Bag 9 99 ACETAMINOPHEN IV (For NPO 100 ) 1,000 mg In Empty Bag 1 bag @ 400 mls/hr IVPB Q6HR PAULA Rx#:[id number] Albumin Human 5% 250 ml 1000 In Empty Bag 1 bag @ 250 mls/hr IVPB Q1HR PRN Rx#: [id number] Lactated Ringers 1,000 ml 500 @ 50 mls/hr IV .Q20H PAULA Rx#:[id number] ceFAZolin 3 gm In Sodium 100 Chloride 0.9% 100 ml @ 100 mls/hr IVPB Q8HR PAULA Rx#:[id number] Intake, IV Titration 397.971 91.562 Amount ACETAMINOPHEN IV (For NPO 100 ) 1,000 mg In Empty Bag 1 bag @ 400 mls/hr IVPB Q6HR PAULA Rx#:[id number] Clevidipine Butyrate 25 24.600 21.133 mg In Empty Bag 1 bag @ 1 MG/HR 2 mls/hr IV .Q24H PAULA Rx#:[id number] Insulin Regular 100 unit 43.800 In Sodium Chloride 0.9% 100 ml @ Titrate IV .Q0M PAULA Rx#:[id number] Lactated Ringers 1,000 ml 100 @ 50 mls/hr IV .Q20H PAULA Rx#:[id number] Propofol 1,000 mg In 73.371 26.629 Empty Bag 1 bag @ Titrate IV .Q0M PAULA Rx#: [id number] ceFAZolin 3 gm In Sodium 100 Chloride 0.9% 100 ml @ 100 mls/hr IVPB Q8HR PAULA Rx#:[id number] Output: Chest Tube Drainage 570 388 Left Pleural Chest Tube 390 100 Mediastinal Chest Tube X 160 270 2 Right Chest Tube 20 18 Drainage 75 Left Arm 30 Left Knee 40 Right Knee 5 Urine 1125 1096 Estimated Blood Loss 1999 Other: Voiding Method Indwelling Catheter Indwelling Catheter ABP, PAP, CO, CI - Last Documented Arterial Blood Pressure 121/73 Pulmonary Artery Pressure 24/12 Cardiac Output 7.8 Cardiac Index 3 - Constitutional General appearance: Present: no acute distress - Respiratory Respiratory: bilateral: diminished - Cardiovascular Rhythm: regular - Labs CBC & Chem 7: 10/28/18 04:30 10/28/18 04:30 Labs: Abnormal Lab Results - Last 24 Hours (Table) 10/26/18 10/27/18 10/27/18 Range/Units 05:55 08:43 12:02 RBC (4.30-5.90) m/uL Hgb (13.0-17.5) gm/dL Hct (39.0-53.0) % Plt Count (150-450) k/uL Lymphocytes # (1.0-4.8) k/uL ABG pH 7.30 L (7.35-7.45) ABG pCO2 47 H (35-45) mmHg ABG pO2 172 H 200 H (83-108) mmHg ABG Total CO2 25 H 25 H (19-24) mmol/L ABG O2 Saturation 99.5 H 99.6 H (94-97) % ABG Hematocrit 48 H (34.0-46.0) % ABG Potassium 5.0 H (3.4-4.5) mmol/L ABG Ionized Calcium (4.5-5.3) mg/dL ABG Glucose 103 H 109 H (75-99) mg/dL ABG Lactic Acid (0.5-1.6) mmol/L Hemoglobin (13.0-17.5) gm/dL Chloride (98-107) mmol/L Glucose (74-99) mg/dL POC Glucose (mg/dL) (75-99) mg/dL Calcium (8.4-10.2) mg/dL Total Bilirubin (0.2-1.3) mg/dL Alkaline Phosphatase (38-126) U/L Total Protein (6.3-8.2) g/dL Albumin (3.5-5.0) g/dL Arterial Blood Potassium 5.0 H (3.4-4.5) mmol/L Arterial Blood Glucose 103 H 109 H (75-99) mg/dL Crossmatch See Detail 10/27/18 10/27/18 10/27/18 Range/Units 12:47 13:18 13:41 RBC (4.30-5.90) m/uL Hgb (13.0-17.5) gm/dL Hct (39.0-53.0) % Plt Count (150-450) k/uL Lymphocytes # (1.0-4.8) k/uL ABG pH 7.34 L 7.33 L (7.35-7.45) ABG pCO2 46 H (35-45) mmHg ABG pO2 >420 H 231 H 210 H (83-108) mmHg ABG Total CO2 26 H 26 H 25 H (19-24) mmol/L ABG O2 Saturation 100.0 H 99.8 H 99.8 H (94-97) % ABG Hematocrit (34.0-46.0) % ABG Potassium 4.9 H 5.5 H 5.2 H (3.4-4.5) mmol/L ABG Ionized Calcium 3.9 L 4.2 L 4.2 L (4.5-5.3) mg/dL ABG Glucose 101 H 176 H 176 H (75-99) mg/dL ABG Lactic Acid (0.5-1.6) mmol/L Hemoglobin 11.8 L 11.4 L 11.5 L (13.0-17.5) gm/dL Chloride (98-107) mmol/L Glucose (74-99) mg/dL POC Glucose (mg/dL) (75-99) mg/dL Calcium (8.4-10.2) mg/dL Total Bilirubin (0.2-1.3) mg/dL Alkaline Phosphatase (38-126) U/L Total Protein (6.3-8.2) g/dL Albumin (3.5-5.0) g/dL Arterial Blood Potassium 4.9 H 5.5 H 5.2 H (3.4-4.5) mmol/L Arterial Blood Glucose 101 H 176 H 176 H (75-99) mg/dL Crossmatch 10/27/18 10/27/18 10/27/18 Range/Units 14:11 14:41 16:06 RBC (4.30-5.90) m/uL Hgb (13.0-17.5) gm/dL Hct (39.0-53.0) % Plt Count (150-450) k/uL Lymphocytes # (1.0-4.8) k/uL ABG pH 7.34 L (7.35-7.45) ABG pCO2 46 H (35-45) mmHg ABG pO2 357 H 257 H 186 H (83-108) mmHg ABG Total CO2 27 H 26 H 26 H (19-24) mmol/L ABG O2 Saturation 100.0 H 100.0 H 99.6 H (94-97) % ABG Hematocrit (34.0-46.0) % ABG Potassium 4.9 H 4.9 H (3.4-4.5) mmol/L ABG Ionized Calcium 4.2 L 4.2 L (4.5-5.3) mg/dL ABG Glucose 168 H 178 H 135 H (75-99) mg/dL ABG Lactic Acid 1.7 H 2.5 H* (0.5-1.6) mmol/L Hemoglobin 11.4 L 11.2 L 12.0 L (13.0-17.5) gm/dL Chloride (98-107) mmol/L Glucose (74-99) mg/dL POC Glucose (mg/dL) (75-99) mg/dL Calcium (8.4-10.2) mg/dL Total Bilirubin (0.2-1.3) mg/dL Alkaline Phosphatase (38-126) U/L Total Protein (6.3-8.2) g/dL Albumin (3.5-5.0) g/dL Arterial Blood Potassium 4.9 H 4.9 H (3.4-4.5) mmol/L Arterial Blood Glucose 168 H 178 H 135 H (75-99) mg/dL Crossmatch 10/27/18 10/27/18 10/27/18 Range/Units 17:23 17:23 17:23 RBC 4.29 L (4.30-5.90) m/uL Hgb 12.6 L D (13.0-17.5) gm/dL Hct 37.4 L (39.0-53.0) % Plt Count 129 L (150-450) k/uL Lymphocytes # 0.8 L (1.0-4.8) k/uL ABG pH (7.35-7.45) ABG pCO2 (35-45) mmHg ABG pO2 (83-108) mmHg ABG Total CO2 (19-24) mmol/L ABG O2 Saturation (94-97) % ABG Hematocrit (34.0-46.0) % ABG Potassium (3.4-4.5) mmol/L ABG Ionized Calcium (4.5-5.3) mg/dL ABG Glucose (75-99) mg/dL ABG Lactic Acid (0.5-1.6) mmol/L Hemoglobin (13.0-17.5) gm/dL Chloride 108 H (98-107) mmol/L Glucose 116 H (74-99) mg/dL POC Glucose (mg/dL) 123 H (75-99) mg/dL Calcium 8.3 L (8.4-10.2) mg/dL Total Bilirubin 1.4 H (0.2-1.3) mg/dL Alkaline Phosphatase (38-126) U/L Total Protein 5.3 L (6.3-8.2) g/dL Albumin 3.4 L (3.5-5.0) g/dL Arterial Blood Potassium (3.4-4.5) mmol/L Arterial Blood Glucose (75-99) mg/dL Crossmatch 10/27/18 10/27/18 10/27/18 Range/Units 18:06 20:10 20:50 RBC 3.99 L (4.30-5.90) m/uL Hgb 11.8 L (13.0-17.5) gm/dL Hct 35.3 L (39.0-53.0) % Plt Count (150-450) k/uL Lymphocytes # 0.7 L (1.0-4.8) k/uL ABG pH (7.35-7.45) ABG pCO2 (35-45) mmHg ABG pO2 (83-108) mmHg ABG Total CO2 (19-24) mmol/L ABG O2 Saturation (94-97) % ABG Hematocrit (34.0-46.0) % ABG Potassium (3.4-4.5) mmol/L ABG Ionized Calcium (4.5-5.3) mg/dL ABG Glucose (75-99) mg/dL ABG Lactic Acid (0.5-1.6) mmol/L Hemoglobin (13.0-17.5) gm/dL Chloride (98-107) mmol/L Glucose (74-99) mg/dL POC Glucose (mg/dL) 133 H 174 H (75-99) mg/dL Calcium (8.4-10.2) mg/dL Total Bilirubin (0.2-1.3) mg/dL Alkaline Phosphatase (38-126) U/L Total Protein (6.3-8.2) g/dL Albumin (3.5-5.0) g/dL Arterial Blood Potassium (3.4-4.5) mmol/L Arterial Blood Glucose (75-99) mg/dL Crossmatch 10/27/18 10/27/18 10/27/18 Range/Units 21:25 23:25 23:29 RBC 3.66 L (4.30-5.90) m/uL Hgb 11.0 L (13.0-17.5) gm/dL Hct 32.4 L (39.0-53.0) % Plt Count 134 L (150-450) k/uL Lymphocytes # 0.4 L (1.0-4.8) k/uL ABG pH (7.35-7.45) ABG pCO2 (35-45) mmHg ABG pO2 (83-108) mmHg ABG Total CO2 (19-24) mmol/L ABG O2 Saturation (94-97) % ABG Hematocrit (34.0-46.0) % ABG Potassium (3.4-4.5) mmol/L ABG Ionized Calcium (4.5-5.3) mg/dL ABG Glucose (75-99) mg/dL ABG Lactic Acid (0.5-1.6) mmol/L Hemoglobin (13.0-17.5) gm/dL Chloride (98-107) mmol/L Glucose (74-99) mg/dL POC Glucose (mg/dL) 178 H 170 H (75-99) mg/dL Calcium (8.4-10.2) mg/dL Total Bilirubin (0.2-1.3) mg/dL Alkaline Phosphatase (38-126) U/L Total Protein (6.3-8.2) g/dL Albumin (3.5-5.0) g/dL Arterial Blood Potassium (3.4-4.5) mmol/L Arterial Blood Glucose (75-99) mg/dL Crossmatch 10/28/18 10/28/18 10/28/18 Range/Units 00:21 01:24 02:28 RBC (4.30-5.90) m/uL Hgb (13.0-17.5) gm/dL Hct (39.0-53.0) % Plt Count (150-450) k/uL Lymphocytes # (1.0-4.8) k/uL ABG pH (7.35-7.45) ABG pCO2 (35-45) mmHg ABG pO2 (83-108) mmHg ABG Total CO2 (19-24) mmol/L ABG O2 Saturation (94-97) % ABG Hematocrit (34.0-46.0) % ABG Potassium (3.4-4.5) mmol/L ABG Ionized Calcium (4.5-5.3) mg/dL ABG Glucose (75-99) mg/dL ABG Lactic Acid (0.5-1.6) mmol/L Hemoglobin (13.0-17.5) gm/dL Chloride (98-107) mmol/L Glucose (74-99) mg/dL POC Glucose (mg/dL) 147 H 164 H 150 H (75-99) mg/dL Calcium (8.4-10.2) mg/dL Total Bilirubin (0.2-1.3) mg/dL Alkaline Phosphatase (38-126) U/L Total Protein (6.3-8.2) g/dL Albumin (3.5-5.0) g/dL Arterial Blood Potassium (3.4-4.5) mmol/L Arterial Blood Glucose (75-99) mg/dL Crossmatch 10/28/18 10/28/18 10/28/18 Range/Units 03:31 04:26 04:30 RBC 3.83 L (4.30-5.90) m/uL Hgb 11.3 L (13.0-17.5) gm/dL Hct 33.4 L (39.0-53.0) % Plt Count 137 L (150-450) k/uL Lymphocytes # 0.4 L (1.0-4.8) k/uL ABG pH (7.35-7.45) ABG pCO2 (35-45) mmHg ABG pO2 (83-108) mmHg ABG Total CO2 (19-24) mmol/L ABG O2 Saturation (94-97) % ABG Hematocrit (34.0-46.0) % ABG Potassium (3.4-4.5) mmol/L ABG Ionized Calcium (4.5-5.3) mg/dL ABG Glucose (75-99) mg/dL ABG Lactic Acid (0.5-1.6) mmol/L Hemoglobin (13.0-17.5) gm/dL Chloride (98-107) mmol/L Glucose (74-99) mg/dL POC Glucose (mg/dL) 147 H 154 H (75-99) mg/dL Calcium (8.4-10.2) mg/dL Total Bilirubin (0.2-1.3) mg/dL Alkaline Phosphatase (38-126) U/L Total Protein (6.3-8.2) g/dL Albumin (3.5-5.0) g/dL Arterial Blood Potassium (3.4-4.5) mmol/L Arterial Blood Glucose (75-99) mg/dL Crossmatch 10/28/18 10/28/18 10/28/18 Range/Units 04:30 05:24 06:48 RBC (4.30-5.90) m/uL Hgb (13.0-17.5) gm/dL Hct (39.0-53.0) % Plt Count (150-450) k/uL Lymphocytes # (1.0-4.8) k/uL ABG pH (7.35-7.45) ABG pCO2 (35-45) mmHg ABG pO2 (83-108) mmHg ABG Total CO2 (19-24) mmol/L ABG O2 Saturation (94-97) % ABG Hematocrit (34.0-46.0) % ABG Potassium (3.4-4.5) mmol/L ABG Ionized Calcium (4.5-5.3) mg/dL ABG Glucose (75-99) mg/dL ABG Lactic Acid (0.5-1.6) mmol/L Hemoglobin (13.0-17.5) gm/dL Chloride (98-107) mmol/L Glucose 142 H (74-99) mg/dL POC Glucose (mg/dL) 148 H 146 H (75-99) mg/dL Calcium (8.4-10.2) mg/dL Total Bilirubin (0.2-1.3) mg/dL Alkaline Phosphatase 34 L (38-126) U/L Total Protein 5.5 L (6.3-8.2) g/dL Albumin (3.5-5.0) g/dL Arterial Blood Potassium (3.4-4.5) mmol/L Arterial Blood Glucose (75-99) mg/dL Crossmatch Assessment and Plan Assessment: Assessment #1 severe triple-vessel coronary artery disease and status post coronary artery bypass graft #2 hypertension #3 dyslipidemia Plan #1 continue the current medical regimen #2 follow-up with the patient
[2018-10-28] MEDS: IPRATROPIUM-ALBUTEROL 3 ML NEB INHALATION SCH ×4 (07:56→19:41)
[2018-10-28] MEDS: NITROGLYCERIN-D5W PMX 50 MG in DEXTROSE/WATER 1 250ML.BAG IV SCH (08:15)
[2018-10-28] MEDS: ceFAZolin 3 GM in SODIUM CHLORIDE 0.9% 100 ML IVPB SCH ×3 (08:30→23:49)
[2018-10-28] MEDS: HEPARIN SODIUM,PORCINE 5,000 UNIT/ML 1 ML VIAL SQ SCH ×3 (08:31→23:50)
[2018-10-28] MEDS: MUPIROCIN 2% OINT 22 GM TUBE NASAL SCH ×2 (08:31→21:50)
[2018-10-28] MEDS: CLOPIDOGREL 75 MG TAB PO SCH (08:31)
[2018-10-28] MEDS: ATORVASTATIN 40 MG TAB PO SCH (08:31)
[2018-10-28] MEDS: ASPIRIN 325 MG TAB PO SCH (08:31)
--- NOTE | 2018-10-28 08:35 | OP ---
OPERATIVE REPORT DATE OF THE SURGERY: 10/27/2018 SURGEON: Dr. Germaine Brandt. FITNESS ASSISTANT: Ectro Ba[place]. PREOPERATIVE DIAGNOSES: Unstable angina, triple-vessel coronary artery disease, preserved left ventricular function, totally occluded circumflex system, hypertension, hyperlipidemia. POSTOPERATIVE DIAGNOSES: Unstable angina, triple-vessel coronary artery disease, preserved left ventricular function, totally occluded circumflex system, hypertension, hyperlipidemia with diffuse coronary artery disease. PROCEDURE: 1. Quadruple coronary artery bypass grafting using the left internal mammary artery to the left anterior descending artery as a patch angioplasty, left radial artery from the aorta to the totally occluded ramus intermedius artery, reverse saphenous vein graft from the aorta sequentially in a [id number] fashion to the posterior descending artery, then in an end-to-side fashion to the left ventricular branch of the right coronary artery. 2. Endoscopic harvesting of bilateral greater saphenous vein. 3. Endoscopic harvesting of the left radial artery. 4. Intraoperative transesophageal echocardiogram and epiaortic scanning. 5. Intraoperative graft flow measurements using the SEVENROOMSim system. INDICATION FOR SURGERY: The patient is a 48-year-old gentleman with the above comorbidities who had a recent onset of chest pain with accelerating fashion. The patient had negative enzymes. Workup included a cardiac catheterization and a 2-D echo that showed triple-vessel coronary artery disease with a totally occluded circumflex system and no significant valvular abnormality with grossly preserved left ventricular function. The patient was kept in the hospital and is being taken to the operating room for coronary artery bypass grafting. The SDS risk was discussed with him. He understood it and agreed to proceed. DESCRIPTION OF THE PROCEDURE: The patient in supine position. Right internal jugular [place]-Royer catheter and right radial arterial line were placed. The patient had normal PA pressure and good cardiac index. Subsequently general endotracheal anesthesia was induced uneventfully. The patient received 2 grams of cefazolin intravenously. A Cutler catheter was inserted. The chest, abdomen, both lower extremity and the left upper extremity were prepped and draped using ChloraPrep. Ioban was used to cover the skin. Transesophageal echocardiogram confirmed the preoperative finding of preserved left ventricular function and no significant valvular abnormality. Midline sternotomy was performed and the bone was quite dense. The left hemisternum was elevated and the left internal mammary artery was harvested in a totally skeletonized fashion. The left pleura was intentionally opened in this process and was drained with a 19-Turkmen Preston drain. There was a breach in the right pleura which we also drained with a 19-Turkmen Preston drain. In the same setting, the left radial artery was harvested endoscopically. It was initially exposed at the wrist and clamping trial revealed preserved pulsatile signal at the level of the left index O2 saturation probe. The radial artery was of good quality, around 2.5 mm in diameter. It was prepared by incising the fascia all along its volar aspect and clipping all the branches. The forearm incision was closed over a 10-Turkmen Preston drain. Also in the same setting initially, the left greater saphenous vein was harvested endoscopically from groin to just below knee level where it appeared to be small. The branches were tied. That vein was of reasonable quality at the thigh level but was non usable [id number]. The incisions were closed over a drain. Anticipating a need of more veins, we proceeded at harvesting the right greater saphenous vein from the groin to just below knee level and unfortunately once harvested and prepared that vein was non usable with multiple varicosities in it and of bigger caliber. The right side incisions were closed over a drain. Mediastinal fat was transected between 2 ties and epiaortic scanning revealed no protruding atheroma in the ascending aorta. Pericardium was opened in an inverted T- fashion and a pericardial cradle was created. Findings included the soft aorta in a normal size heart. There was visible coronary artery disease that was not calcified, but rather soft. After systemic heparinization and after placement of respective pledgeted pursestring, aortic cannulation with a 21-Turkmen soft flow cannula and venous cannulation with a 29/37-Turkmen cannula was performed. Antegrade as well as retrograde cardioplegia catheters were placed. Cardiopulmonary bypass was initiated and with the heart empty and warm and beating we looked at the target. The LAD had diffuse disease in it and I picked a spot across a plaque just before the takeoff of the last diagonal artery. The lateral wall showed a ramus intermedius vessel that we knew was totally occluded. Beyond that, there were 2 very small non bypassable branching marginal arteries. The RCA system had a good-sized PDA and a good-sized LV branch and decision was made to do both as there was diffuse disease in this young vinayak. Aorta was clamped and during aortic clamping myocardial protection with it was achieved with initial dose of 800 mL of antegrade cold blood cardioplegia followed by 500 mL of retrograde cold blood cardioplegia. All subsequent doses were given retrograde at 15 minutes interval. The first distal anastomosis was between a segment of reverse saphenous vein graft of reasonable quality and a 1.75 mm thin-walled left ventricular branch of the right coronary artery using Prolene 7-0 in continuous fashion. In view of the paucity of veins that same vein was used to perform the second distal anastomosis in a side-to- side sequential fashion to the posterior descending artery and in a perpendicular fashion using Prolene 7-0 continuous fashion. The third distal anastomosis was between the radial artery and the proximal aspect of the ramus intermedius artery that was thickened, was around 1.5 mm in diameter. I was able to pass a probe to establish patency proximally and distally of the anastomosis. The fourth and last distal anastomosis was between the totally skeletonized in situ left internal mammary artery and the left anterior descending artery across the plaque just before the takeoff of the last diagonal artery in a patch angioplasty manner. Satisfied with the distal anastomosis, rewarming was started as we punched out 2 buttons of the ascending aorta and performed the 2 proximal anastomosis of the radial artery and the vein graft using running Prolene. The patient was given lidocaine and magnesium and de-airing maneuvers were followed before unclamping the aorta. He regained spontaneous sinus rhythm. Two monopolar atrial pacing wires were affixed to the respective pursestring of the right atrium. No ventricular wire was placed. After a period of reperfusion, we were able to wean off cardioplegia bypass without the need of any inotropic or vasopressor support. Graft flow measurements at this point revealed excellent flows in all 3 grafts with excellent parameters. With that, test dose and full dose protamine was given. Decannulation followed. The venous cannulation site was reinforced with a running Prolene 4-0. A groove was made in the left pleural pericardial fat to accommodate the mammary artery medial to the lung and away from the posterior sternal table. Two 19- Turkmen Preston drains were placed substernally. Pericardial fat was approximated over the heart and all the grafts. After ensuring adequate hemostasis and hemodynamics and after correct sponge, instrument, and needle count, the sternum was closed using 6 [id number] Stamping Ground cable after interposing Fibrillar between the sternal edges. Thorough irrigation with cefazolin followed. The rest of the closure proceeded in layers. Skin glue was applied. The patient did not receive any blood bank product but received 500 mL of Cell Saver blood. He was transferred to the ICU stable with excellent hemodynamics on low-dose nitroglycerin. JIN / JUNG: [id number] /
[2018-10-28] MEDS ORDERED: METOPROLOL TARTRATE 12.5 MG TAB PO SCH (09:00)
[2018-10-28] MEDS ORDERED: PANTOPRAZOLE 40 MG/10 ML VIAL IVP SCH (09:00)
[2018-10-28] MEDS ORDERED: BISACODYL 10 MG SUPP RECTAL PRN (09:00)
[2018-10-28] MEDS ORDERED: MAGNESIUM HYDROXIDE 2,400 MG/10 ML CUP PO PRN (09:00)
[2018-10-28] MEDS ORDERED: amLODIPine 2.5 MG TAB PO SCH (09:00)
--- NOTE | 2018-10-28 09:02 | P.PN ---
Subjective Progress Note Date: 10/28/18 Principal diagnosis: Unstable angina, severe triple vessel diffuse coronary artery disease, preserved left ventricular function, totally occluded circumflex system. History of hyp ertension, hyperlipidemia, and family history of hypertension. POD #1 urgent quadruple coronary artery bypass grafting using the left internal mammary artery to the left anterior descending artery as a patch angioplasty, left radial artery from the aorta to the totally occluded ramus intermedius ar princess, reverse saphenous vein graft from the aorta sequentially in a [id number] fashion to the posterior descending artery, then in an end to side fashion to the left ventricular branch of the right coronary artery, endoscopic harvesting of the bilateral greater saphenous veins from the groin to below the knee level, endoscopic harvesting of the left radial artery, intraoperative transesophageal echocardiogram, epi-aortic scanning, and intraoperative graft flow measurements using the [employer] system The patient's currently sitting up in the recliner in no acute distress. He was successfully extubated last night at 23:34. Complains of postsurgical type pain, denies shortness of breath, does complain of significant nausea. Remains in normal sinus rhythm. Hemodynamically stable and no inotropes or pressors. No new concerns. Objective - Vital Signs Vital signs: Vital Signs Temp 98.8 F 10/28/18 04:00 Pulse 74 10/28/18 08:10 Resp 18 10/28/18 07:30 BP 119/68 10/28/18 07:15 Pulse Ox 97 10/28/18 07:57 Intake & Output 10/27/18 10/28/18 10/28/18 18:59 06:59 18:59 Intake Total 759.401 0609.562 79 Output Total 3695 1659 134 Balance -3204.029 660.562 -55 Weight 140.1 kg Intake: IV 93 2228 79 0.9NS Cardiac Output 50 370 20 0.9NS Pressure Bag 9 108 9 ACETAMINOPHEN IV (For NPO 100 ) 1,000 mg In Empty Bag 1 bag @ 400 mls/hr IVPB Q6HR PAULA Rx#:[id number] Albumin Human 5% 250 ml 1000 In Empty Bag 1 bag @ 250 mls/hr IVPB Q1HR PRN Rx#: [id number] Lactated Ringers 1,000 ml 550 50 @ 20 mls/hr IV .Q24H PAULA Rx#:[id number] ceFAZolin 3 gm In Sodium 100 Chloride 0.9% 100 ml @ 100 mls/hr IVPB Q8HR PAULA Rx#:[id number] Intake, IV Titration 397.971 91.562 Amount ACETAMINOPHEN IV (For NPO 100 ) 1,000 mg In Empty Bag 1 bag @ 400 mls/hr IVPB Q6HR PAULA Rx#:[id number] Clevidipine Butyrate 25 24.600 21.133 mg In Empty Bag 1 bag @ 1 MG/HR 2 mls/hr IV .Q24H PAULA Rx#:[id number] Insulin Regular 100 unit 43.800 In Sodium Chloride 0.9% 100 ml @ Titrate IV .Q0M PAULA Rx#:[id number] Lactated Ringers 1,000 ml 100 @ 20 mls/hr IV .Q24H PAULA Rx#:[id number] Propofol 1,000 mg In 73.371 26.629 Empty Bag 1 bag @ Titrate IV .Q0M PAULA Rx#: [id number] ceFAZolin 3 gm In Sodium 100 Chloride 0.9% 100 ml @ 100 mls/hr IVPB Q8HR PAULA Rx#:[id number] Output: Chest Tube Drainage 570 388 84 Left Pleural Chest Tube 390 100 50 Mediastinal Chest Tube X 160 270 20 2 Right Chest Tube 20 18 14 Drainage 75 Left Arm 30 Left Knee 40 Right Knee 5 Urine 1125 1196 50 Estimated Blood Loss 1999 Other: Voiding Method Indwelling Catheter Indwelling Catheter ABP, PAP, CO, CI - Last Documented Arterial Blood Pressure 130/61 Pulmonary Artery Pressure 21/12 Cardiac Output 6.6 Cardiac Index 2.5 - Constitutional General appearance: Present: cooperative, no acute distress, obese - Respiratory Details: Lungs sounds diminished bilaterally. Respirations even, nonlabored. Currently on 6 L high flow nasal cannula with oxygen saturation 95%. Able to achieve 1000 mL on his incentive spirometry. Strong cough. Mediastinal chest tube to continuous wall suction, 180 mL serosanguineous drainage overnight, 450 mL since surgery. Left pleural chest tube to continuous wall suction, 50 mL serosanguineous drainage overnight, 550 mL since surgery. No air leaks. - Cardiovascular Details: S1, S2 present, positive rub. Regular rate and rhythm, sinus rhythm on telemetry with global ST changes. Sternum stable. Atrial epicardial wires present, connected to generator, a remote with backup rate 50 bpm. Right internal jugular Newport/Cordis, right radial arterial line present. Last CO/CI 7.8/3.0 on no inotropes or pressors. Palpable peripheral pulses bilaterally. No edema present. No calf pain or tenderness noted. Heart hugger placed patient demonstrating appropriate use. Antiembolism stockings, SCDs present. - Gastrointestinal Gastrointestinal Comment(s): Abdomen soft, nontender, nondistended. Hypoactive bowel sounds present 4 quadrants. Positive belching, negative flatus. Tolerating clear liquids. - Genitourinary Genitourinary Comment(s): Cutler present draining clear, yellow urine. Output 40-130 mL/h overnight. - Integumentary Integumentary Comment(s): Skin is warm and dry with evidence of good perfusion. Anterior chest incision well approximated and covered with dry intact dressing. Bilateral lower extremity EVH sites well approximated with AYDE drains are present draining minimal drainage. Left radial arterial harvest site well approximated, AYDE drain present with minimal drainage. Left hand without numbness or tingling, able to wiggle all fingers and grasp objects. - Neurologic Neurologic: Present: CNII-XII intact - Musculoskeletal Musculoskeletal: Present: strength equal bilaterally - Psychiatric Psychiatric: Present: A&O x's 3, appropriate affect, intact judgment & insight - Allied health notes Allied health notes reviewed: nursing - Labs CBC & Chem 7: 10/28/18 04:30 10/28/18 04:30 Labs: Abnormal Lab Results - Last 24 Hours (Table) 10/26/18 10/27/18 10/27/18 Range/Units 05:55 08:43 12:02 RBC (4.30-5.90) m/uL Hgb (13.0-17.5) gm/dL Hct (39.0-53.0) % Plt Count (150-450) k/uL Lymphocytes # (1.0-4.8) k/uL ABG pH 7.30 L (7.35-7.45) ABG pCO2 47 H (35-45) mmHg ABG pO2 172 H 200 H (83-108) mmHg ABG Total CO2 25 H 25 H (19-24) mmol/L ABG O2 Saturation 99.5 H 99.6 H (94-97) % ABG Hematocrit 48 H (34.0-46.0) % ABG Potassium 5.0 H (3.4-4.5) mmol/L ABG Ionized Calcium (4.5-5.3) mg/dL ABG Glucose 103 H 109 H (75-99) mg/dL ABG Lactic Acid (0.5-1.6) mmol/L Hemoglobin (13.0-17.5) gm/dL Chloride (98-107) mmol/L Glucose (74-99) mg/dL POC Glucose (mg/dL) (75-99) mg/dL Calcium (8.4-10.2) mg/dL Total Bilirubin (0.2-1.3) mg/dL Alkaline Phosphatase (38-126) U/L Total Protein (6.3-8.2) g/dL Albumin (3.5-5.0) g/dL Arterial Blood Potassium 5.0 H (3.4-4.5) mmol/L Arterial Blood Glucose 103 H 109 H (75-99) mg/dL Crossmatch See Detail 10/27/18 10/27/18 10/27/18 Range/Units 12:47 13:18 13:41 RBC (4.30-5.90) m/uL Hgb (13.0-17.5) gm/dL Hct (39.0-53.0) % Plt Count (150-450) k/uL Lymphocytes # (1.0-4.8) k/uL ABG pH 7.34 L 7.33 L (7.35-7.45) ABG pCO2 46 H (35-45) mmHg ABG pO2 >420 H 231 H 210 H (83-108) mmHg ABG Total CO2 26 H 26 H 25 H (19-24) mmol/L ABG O2 Saturation 100.0 H 99.8 H 99.8 H (94-97) % ABG Hematocrit (34.0-46.0) % ABG Potassium 4.9 H 5.5 H 5.2 H (3.4-4.5) mmol/L ABG Ionized Calcium 3.9 L 4.2 L 4.2 L (4.5-5.3) mg/dL ABG Glucose 101 H 176 H 176 H (75-99) mg/dL ABG Lactic Acid (0.5-1.6) mmol/L Hemoglobin 11.8 L 11.4 L 11.5 L (13.0-17.5) gm/dL Chloride (98-107) mmol/L Glucose (74-99) mg/dL POC Glucose (mg/dL) (75-99) mg/dL Calcium (8.4-10.2) mg/dL Total Bilirubin (0.2-1.3) mg/dL Alkaline Phosphatase (38-126) U/L Total Protein (6.3-8.2) g/dL Albumin (3.5-5.0) g/dL Arterial Blood Potassium 4.9 H 5.5 H 5.2 H (3.4-4.5) mmol/L Arterial Blood Glucose 101 H 176 H 176 H (75-99) mg/dL Crossmatch 10/27/18 10/27/18 10/27/18 Range/Units 14:11 14:41 16:06 RBC (4.30-5.90) m/uL Hgb (13.0-17.5) gm/dL Hct (39.0-53.0) % Plt Count (150-450) k/uL Lymphocytes # (1.0-4.8) k/uL ABG pH 7.34 L (7.35-7.45) ABG pCO2 46 H (35-45) mmHg ABG pO2 357 H 257 H 186 H (83-108) mmHg ABG Total CO2 27 H 26 H 26 H (19-24) mmol/L ABG O2 Saturation 100.0 H 100.0 H 99.6 H (94-97) % ABG Hematocrit (34.0-46.0) % ABG Potassium 4.9 H 4.9 H (3.4-4.5) mmol/L ABG Ionized Calcium 4.2 L 4.2 L (4.5-5.3) mg/dL ABG Glucose 168 H 178 H 135 H (75-99) mg/dL ABG Lactic Acid 1.7 H 2.5 H* (0.5-1.6) mmol/L Hemoglobin 11.4 L 11.2 L 12.0 L (13.0-17.5) gm/dL Chloride (98-107) mmol/L Glucose (74-99) mg/dL POC Glucose (mg/dL) (75-99) mg/dL Calcium (8.4-10.2) mg/dL Total Bilirubin (0.2-1.3) mg/dL Alkaline Phosphatase (38-126) U/L Total Protein (6.3-8.2) g/dL Albumin (3.5-5.0) g/dL Arterial Blood Potassium 4.9 H 4.9 H (3.4-4.5) mmol/L Arterial Blood Glucose 168 H 178 H 135 H (75-99) mg/dL Crossmatch 10/27/18 10/27/18 10/27/18 Range/Units 17:23 17:23 17:23 RBC 4.29 L (4.30-5.90) m/uL Hgb 12.6 L D (13.0-17.5) gm/dL Hct 37.4 L (39.0-53.0) % Plt Count 129 L (150-450) k/uL Lymphocytes # 0.8 L (1.0-4.8) k/uL ABG pH (7.35-7.45) ABG pCO2 (35-45) mmHg ABG pO2 (83-108) mmHg ABG Total CO2 (19-24) mmol/L ABG O2 Saturation (94-97) % ABG Hematocrit (34.0-46.0) % ABG Potassium (3.4-4.5) mmol/L ABG Ionized Calcium (4.5-5.3) mg/dL ABG Glucose (75-99) mg/dL ABG Lactic Acid (0.5-1.6) mmol/L Hemoglobin (13.0-17.5) gm/dL Chloride 108 H (98-107) mmol/L Glucose 116 H (74-99) mg/dL POC Glucose (mg/dL) 123 H (75-99) mg/dL Calcium 8.3 L (8.4-10.2) mg/dL Total Bilirubin 1.4 H (0.2-1.3) mg/dL Alkaline Phosphatase (38-126) U/L Total Protein 5.3 L (6.3-8.2) g/dL Albumin 3.4 L (3.5-5.0) g/dL Arterial Blood Potassium (3.4-4.5) mmol/L Arterial Blood Glucose (75-99) mg/dL Crossmatch 05/03/0910/27/18 10/27/18 Range/Units 18:06 20:10 20:50 RBC 3.99 L (4.30-5.90) m/uL Hgb 11.8 L (13.0-17.5) gm/dL Hct 35.3 L (39.0-53.0) % Plt Count (150-450) k/uL Lymphocytes # 0.7 L (1.0-4.8) k/uL ABG pH (7.35-7.45) ABG pCO2 (35-45) mmHg ABG pO2 (83-108) mmHg ABG Total CO2 (19-24) mmol/L ABG O2 Saturation (94-97) % ABG Hematocrit (34.0-46.0) % ABG Potassium (3.4-4.5) mmol/L ABG Ionized Calcium (4.5-5.3) mg/dL ABG Glucose (75-99) mg/dL ABG Lactic Acid (0.5-1.6) mmol/L Hemoglobin (13.0-17.5) gm/dL Chloride (98-107) mmol/L Glucose (74-99) mg/dL POC Glucose (mg/dL) 133 H 174 H (75-99) mg/dL Calcium (8.4-10.2) mg/dL Total Bilirubin (0.2-1.3) mg/dL Alkaline Phosphatase (38-126) U/L Total Protein (6.3-8.2) g/dL Albumin (3.5-5.0) g/dL Arterial Blood Potassium (3.4-4.5) mmol/L Arterial Blood Glucose (75-99) mg/dL Crossmatch 10/27/18 10/27/18 10/27/18 Range/Units 21:25 23:25 23:29 RBC 3.66 L (4.30-5.90) m/uL Hgb 11.0 L (13.0-17.5) gm/dL Hct 32.4 L (39.0-53.0) % Plt Count 134 L (150-450) k/uL Lymphocytes # 0.4 L (1.0-4.8) k/uL ABG pH (7.35-7.45) ABG pCO2 (35-45) mmHg ABG pO2 (83-108) mmHg ABG Total CO2 (19-24) mmol/L ABG O2 Saturation (94-97) % ABG Hematocrit (34.0-46.0) % ABG Potassium (3.4-4.5) mmol/L ABG Ionized Calcium (4.5-5.3) mg/dL ABG Glucose (75-99) mg/dL ABG Lactic Acid (0.5-1.6) mmol/L Hemoglobin (13.0-17.5) gm/dL Chloride (98-107) mmol/L Glucose (74-99) mg/dL POC Glucose (mg/dL) 178 H 170 H (75-99) mg/dL Calcium (8.4-10.2) mg/dL Total Bilirubin (0.2-1.3) mg/dL Alkaline Phosphatase (38-126) U/L Total Protein (6.3-8.2) g/dL Albumin (3.5-5.0) g/dL Arterial Blood Potassium (3.4-4.5) mmol/L Arterial Blood Glucose (75-99) mg/dL Crossmatch 10/28/18 10/28/18 10/28/18 Range/Units 00:21 01:24 02:28 RBC (4.30-5.90) m/uL Hgb (13.0-17.5) gm/dL Hct (39.0-53.0) % Plt Count (150-450) k/uL Lymphocytes # (1.0-4.8) k/uL ABG pH (7.35-7.45) ABG pCO2 (35-45) mmHg ABG pO2 (83-108) mmHg ABG Total CO2 (19-24) mmol/L ABG O2 Saturation (94-97) % ABG Hematocrit (34.0-46.0) % ABG Potassium (3.4-4.5) mmol/L ABG Ionized Calcium (4.5-5.3) mg/dL ABG Glucose (75-99) mg/dL ABG Lactic Acid (0.5-1.6) mmol/L Hemoglobin (13.0-17.5) gm/dL Chloride (98-107) mmol/L Glucose (74-99) mg/dL POC Glucose (mg/dL) 147 H 164 H 150 H (75-99) mg/dL Calcium (8.4-10.2) mg/dL Total Bilirubin (0.2-1.3) mg/dL Alkaline Phosphatase (38-126) U/L Total Protein (6.3-8.2) g/dL Albumin (3.5-5.0) g/dL Arterial Blood Potassium (3.4-4.5) mmol/L Arterial Blood Glucose (75-99) mg/dL Crossmatch 10/28/18 10/28/18 10/28/18 Range/Units 03:31 04:26 04:30 RBC 3.83 L (4.30-5.90) m/uL Hgb 11.3 L (13.0-17.5) gm/dL Hct 33.4 L (39.0-53.0) % Plt Count 137 L (150-450) k/uL Lymphocytes # 0.4 L (1.0-4.8) k/uL ABG pH (7.35-7.45) ABG pCO2 (35-45) mmHg ABG pO2 (83-108) mmHg ABG Total CO2 (19-24) mmol/L ABG O2 Saturation (94-97) % ABG Hematocrit (34.0-46.0) % ABG Potassium (3.4-4.5) mmol/L ABG Ionized Calcium (4.5-5.3) mg/dL ABG Glucose (75-99) mg/dL ABG Lactic Acid (0.5-1.6) mmol/L Hemoglobin (13.0-17.5) gm/dL Chloride (98-107) mmol/L Glucose (74-99) mg/dL POC Glucose (mg/dL) 147 H 154 H (75-99) mg/dL Calcium (8.4-10.2) mg/dL Total Bilirubin (0.2-1.3) mg/dL Alkaline Phosphatase (38-126) U/L Total Protein (6.3-8.2) g/dL Albumin (3.5-5.0) g/dL Arterial Blood Potassium (3.4-4.5) mmol/L Arterial Blood Glucose (75-99) mg/dL Crossmatch 10/28/18 10/28/18 10/28/18 Range/Units 04:30 05:24 06:48 RBC (4.30-5.90) m/uL Hgb (13.0-17.5) gm/dL Hct (39.0-53.0) % Plt Count (150-450) k/uL Lymphocytes # (1.0-4.8) k/uL ABG pH (7.35-7.45) ABG pCO2 (35-45) mmHg ABG pO2 (83-108) mmHg ABG Total CO2 (19-24) mmol/L ABG O2 Saturation (94-97) % ABG Hematocrit (34.0-46.0) % ABG Potassium (3.4-4.5) mmol/L ABG Ionized Calcium (4.5-5.3) mg/dL ABG Glucose (75-99) mg/dL ABG Lactic Acid (0.5-1.6) mmol/L Hemoglobin (13.0-17.5) gm/dL Chloride (98-107) mmol/L Glucose 142 H (74-99) mg/dL POC Glucose (mg/dL) 148 H 146 H (75-99) mg/dL Calcium (8.4-10.2) mg/dL Total Bilirubin (0.2-1.3) mg/dL Alkaline Phosphatase 34 L (38-126) U/L Total Protein 5.5 L (6.3-8.2) g/dL Albumin (3.5-5.0) g/dL Arterial Blood Potassium (3.4-4.5) mmol/L Arterial Blood Glucose (75-99) mg/dL Crossmatch - Imaging and Cardiology Chest x-ray: report reviewed, image reviewed Assessment and Plan Assessment: 1. Unstable angina 2. Severe triple-vessel diffuse coronary artery disease, totally occluded circumflex system, status post urgent CABG 3. Preserved left ventricular function 4. Global ST changes with rub, likely pericarditis 5. History of hypertension 6. Hyperlipidemia 7. Family history of hypertension 8. Never smoker with preoperative FEV1 102% of predicted Plan: 1. Continue aspirin, statin, Plavix, beta flako therapy. Will increase beta falko therapy as tolerated. 2. Will initiate Norvasc for arterial spasm prophylaxis. May discontinue IV nitro after administration of Norvasc. 3. Wean O2 as tolerated. Encourage incentive spirometry use 10 times every hour while awake.. 4. Will monitor daily labs, x-rays. Electrolyte replacement per protocol. No transfusion. 5. Pain control with current medication regimen. Will add Toradol. 6. Insulin management per primary care service 7. Increase activity, ambulate as tolerated. PT/OT/cardiac rehab following. 8. Bronchodilators per pulmonology. 9. Discontinue Newport. Cordis to continue CVP monitoring. Will keep chest tubes, Cordis, arterial line for another 24 hours. 10. GI/DVT prophylaxis. 11. More recommendations to follow based on patient's progress. Time with Patient: Greater than 30
[2018-10-28 09:06] LABS: Glucose,Whole Blood 145 mg/dL (75-99)
[2018-10-28] MEDS: INSULIN REGULAR 100 UNIT in SODIUM CHLORIDE 0.9% 100 ML IV SCH (09:08)
[2018-10-28 09:57] VITALS: BMI 36.6
[2018-10-28 11:09] LABS: Glucose,Whole Blood 127 mg/dL (75-99)
[2018-10-28] MEDS: LACTATED RINGERS 1,000 ML IV SCH (12:24)
[2018-10-28 12:32] LABS: Glucose,Whole Blood 122 mg/dL (75-99)
[2018-10-28 14:20] LABS: Glucose,Whole Blood 127 mg/dL (75-99)
--- NOTE | 2018-10-28 14:45 | P.CNPUL ---
History of Present Illness Consult date: 10/28/18 Requesting physician: Germaine Brandt Reason for consult: other (Status post CABG) Chief complaint: Status post CABG History of present illness: This is a 48-year-old white male with recently diagnosed severe triple-vessel coronary artery disease and preserved LV function. Patient was also found to have totally occluded circumflex system. He has history of hypertension and hyperlipidemia and hypertension. On 10/27/2018, patient underwent myocardial revascularization, he had urgent quadruple coronary artery bypass grafting using left internal mammary artery to left anterior descending artery left radial artery from aorta to totally occluded dramas intermedius artery reverse saphenous vein graft from aorta to posterior descending artery and to the ventricular branch of the right coronary artery. Postoperatively, I was asked to see him on consultation, his ventilator was managed overnight, and I extubated the patient within a few hours after he arrived to the ICU. Evaluated the patient today, he seems to be doing quite well, relatively asymptomatic, on nasal cannula, in no distress. Patient was extubated at 23:34. Has some vague chest discomfort from surgery otherwise patient is doing well. And he is hemodynamically stable. Review of Systems All systems: negative Constitutional: Denies chills, Denies fever Eyes: denies blurred vision, denies pain Ears, nose, mouth and throat: Denies headache, Denies sore throat Cardiovascular: Denies chest pain, Denies shortness of breath Respiratory: Reports dyspnea, Denies cough Gastrointestinal: Denies abdominal pain, Denies diarrhea, Denies nausea, Denies vomiting Musculoskeletal: Denies myalgias Integumentary: Denies pruritus, Denies rash Neurological: Denies numbness, Denies weakness Psychiatric: Denies anxiety, Denies depression Endocrine: Denies fatigue, Denies weight change Past Medical History Past Medical History: Chest Pain / Angina, Hyperlipidemia, Hypertension History of Any Multi-Drug Resistant Organisms: None Reported Past Surgical History: Hernia Repair, Orthopedic Surgery, Tonsillectomy Additional Past Surgical History / Comment(s): left knee scope Past Anesthesia/Blood Transfusion Reactions: No Reported Reaction Past Psychological History: No Psychological Hx Reported Smoking Status: Never smoker Past Alcohol Use History: None Reported Past Drug Use History: None Reported - Past Family History Father Family Medical History: Hypertension Mother Family Medical History: Cancer, Hypertension Medications and Allergies Home Medications Medication Instructions Recorded Confirmed Type Ibuprofen [Motrin] 800 mg PO DAILY PRN 11/25/16 10/21/18 History Allergies Allergy/AdvReac Type Severity Reaction Status Date / Time No Known Allergies Allergy Verified 10/27/18 06:17 Physical Exam Vitals: Vital Signs Temp Pulse Resp BP Pulse Ox 10/28/18 14:00 76 13 96 10/28/18 13:30 77 18 96 10/28/18 13:00 80 20 94 L 10/28/18 12:30 82 19 95 10/28/18 12:00 99.5 F 78 18 92 L 10/28/18 11:53 81 10/28/18 11:43 78 10/28/18 11:30 68 16 95 10/28/18 11:00 71 17 97 10/28/18 10:30 71 21 96 10/28/18 10:00 68 17 95 10/28/18 09:30 76 23 95 10/28/18 09:00 71 15 95 10/28/18 08:30 75 21 94 L 10/28/18 08:10 74 10/28/18 08:00 99.5 F 73 11 L 119/68 95 10/28/18 07:57 71 97 10/28/18 07:30 71 18 95 10/28/18 07:15 70 22 119/68 96 10/28/18 07:00 68 18 92 L 10/28/18 06:45 66 21 93 L 10/28/18 06:30 69 24 92 L 10/28/18 06:15 71 21 121/66 96 10/28/18 06:00 71 21 91 L 10/28/18 05:45 71 21 95 10/28/18 05:30 75 21 93 L 10/28/18 05:15 73 19 95 10/28/18 05:00 76 20 97 10/28/18 04:45 72 19 96 10/28/18 04:30 72 21 96 10/28/18 04:15 80 19 117/75 94 L 10/28/18 04:00 98.8 F 73 21 96 10/28/18 03:45 53 L 27 H 120/85 93 L 10/28/18 03:30 79 19 120/85 95 10/28/18 03:15 78 18 120/85 94 L 10/28/18 03:00 81 22 94 L 10/28/18 02:45 78 16 94 L 10/28/18 02:30 84 23 95 10/28/18 02:15 78 16 125/79 95 10/28/18 02:00 98.4 F 78 17 94 L 10/28/18 01:45 79 16 95 10/28/18 01:30 79 18 94 L 10/28/18 01:15 82 6 L 115/75 94 L 10/28/18 01:00 79 15 93 L 10/28/18 00:45 81 22 94 L 10/28/18 00:30 78 17 94 L 10/28/18 00:15 74 18 107/66 94 L 10/28/18 00:00 98.2 F 82 27 H 95 10/27/18 23:45 81 21 94 L 10/27/18 23:30 81 24 93 L 10/27/18 23:15 80 20 96 10/27/18 23:00 78 26 H 95 10/27/18 22:45 78 17 95 10/27/18 22:34 96 10/27/18 22:30 80 17 94/63 96 10/27/18 22:15 80 19 95 10/27/18 22:00 76 17 103/40 97 10/27/18 21:45 80 13 91/57 96 10/27/18 21:30 80 15 95 10/27/18 21:15 77 18 90/67 96 10/27/18 21:00 80 29 H 85/53 97 10/27/18 20:45 74 18 95/44 94 L 10/27/18 20:30 74 18 89/62 97 10/27/18 20:25 77 18 10/27/18 20:15 76 11 L 96 10/27/18 20:00 77 18 97 10/27/18 19:45 75 12 93/55 94 L 10/27/18 19:30 99.0 F 80 10 L 95 10/27/18 19:00 97.9 F 80 25 H 96 10/27/18 18:45 84 27 H 96 10/27/18 18:30 78 27 H 96 10/27/18 18:15 76 27 H 10/27/18 18:00 76 20 96 10/27/18 17:45 74 16 130/71 97 10/27/18 17:30 80 18 05/09/19 17:08 76 19 98 Intake and Output 10/27/18 10/28/18 10/28/18 22:59 06:59 14:59 Intake Total 0428.046 3453.267 640.492 Output Total 4309 1045 1239 Balance -2677.734 100.267 -598.508 Intake: IV 1185 1102 586 0.9 20 0.9NS Cardiac Output 240 180 20 0.9NS Pressure Bag 45 72 66 ACETAMINOPHEN IV (For NPO 100 ) 1,000 mg In Empty Bag 1 bag @ 400 mls/hr IVPB Q6HR PAULA Rx#:[id number] Albumin Human 5% 250 ml 750 250 In Empty Bag 1 bag @ 250 mls/hr IVPB Q1HR PRN Rx#: [id number] Lactated Ringers 1,000 ml 150 400 380 @ 20 mls/hr IV .Q24H PAULA Rx#:[id number] ceFAZolin 3 gm In Sodium 100 100 Chloride 0.9% 100 ml @ 100 mls/hr IVPB Q8HR PAULA Rx#:[id number] Intake, IV Titration 446.266 43.267 54.492 Amount ACETAMINOPHEN IV (For NPO 100 ) 1,000 mg In Empty Bag 1 bag @ 400 mls/hr IVPB Q6HR PAULA Rx#:[id number] Clevidipine Butyrate 25 39.933 5.8 mg In Empty Bag 1 bag @ 1 MG/HR 2 mls/hr IV .Q24H PAULA Rx#:[id number] Insulin Regular 100 unit 6.333 37.467 54.492 In Sodium Chloride 0.9% 100 ml @ Titrate IV .Q0M PAULA Rx#:[id number] Lactated Ringers 1,000 ml 100 @ 20 mls/hr IV .Q24H PAULA Rx#:[id number] Propofol 1,000 mg In 100.000 Empty Bag 1 bag @ Titrate IV .Q0M PAULA Rx#: [id number] ceFAZolin 3 gm In Sodium 100 Chloride 0.9% 100 ml @ 100 mls/hr IVPB Q8HR PAULA Rx#:[id number] Output: Chest Tube Drainage 719 239 464 Left Pleural Chest Tube 440 50 300 Mediastinal Chest Tube X 250 180 110 2 Right Chest Tube 29 9 54 Drainage 75 50 Left Arm 30 10 Left Knee 40 20 Right Knee 5 20 Urine 1590 731 725 Estimated Blood Loss 1999 Other: Voiding Method Indwelling Catheter Indwelling Catheter Indwelling Catheter Weight 140.1 kg 140.1 kg ABP, PAP, CO, CI - Last 8 Hours Arterial Blood Pressure 121/65 Arterial Blood Pressure 132/71 Arterial Blood Pressure 127/64 Arterial Blood Pressure 127/62 Arterial Blood Pressure 115/61 Arterial Blood Pressure 142/65 Arterial Blood Pressure 122/61 Arterial Blood Pressure 133/73 Arterial Blood Pressure 131/69 Arterial Blood Pressure 115/62 Arterial Blood Pressure 111/63 Arterial Blood Pressure 141/56 Arterial Blood Pressure 110/63 Arterial Blood Pressure 130/61 Arterial Blood Pressure 140/65 Arterial Blood Pressure 116/64 Arterial Blood Pressure 108/60 Pulmonary Artery Pressure 15/6 Pulmonary Artery Pressure 16/8 Pulmonary Artery Pressure 16/9 Pulmonary Artery Pressure 19/8 Pulmonary Artery Pressure 19/8 Pulmonary Artery Pressure 19/8 Pulmonary Artery Pressure 20/8 Pulmonary Artery Pressure 17/7 Pulmonary Artery Pressure 26/11 Pulmonary Artery Pressure 21/11 Pulmonary Artery Pressure 17/7 Pulmonary Artery Pressure 21/12 Pulmonary Artery Pressure 21/11 Pulmonary Artery Pressure 19/10 Pulmonary Artery Pressure 23/11 Cardiac Output 6.6 Cardiac Output 6.6 Cardiac Output 6.6 Cardiac Output 6.6 Cardiac Output 6.6 Cardiac Output 6.6 Cardiac Output 6.6 Cardiac Output 6.6 Cardiac Output 6.6 Cardiac Output 6.6 Cardiac Output 6.6 Cardiac Index 2.5 GENERAL EXAM: Alert, pleasant, 48-year-old white male, on nasal cannula, in no distress. HEAD: Normocephalic/atraumatic. ENT: PERRLA, EOMI, no icterus, throat is clear, moist mucous membranes, no neck masses, no adenopathy. CHEST: Postsurgical, No chest wall deformity. Symmetrical expansion. Slightly diminished breath sounds at the bases. LUNGS: Diminished breath sound at the bases no crackles or rhonchi or wheezes. CVS: Regular rate and rhythm, normal S1 and S2, no gallops, no murmurs, no rubs ABDOMEN: Soft, nontender. No hepatosplenomegaly, normal bowel sounds, no guarding or rigidity. EXTREMITIES: No clubbing, no edema, no cyanosis, 2+ pulses and upper and lower extremities. SKIN: No rashes CENTRAL NERVOUS SYSTEM: Alert and oriented -3. No focal deficits, tone is normal in all 4 extremities. PSYCHIATRIC: Normal mood, affect and mental status examination. Results - Laboratory Findings CBC and BMP: 10/28/18 04:30 10/28/18 04:30 ABG ABG pH 7.38 (7.35-7.45) 10/27/18 22:08 ABG pCO2 38 mmHg (35-45) 10/27/18 22:08 ABG pO2 83 mmHg (83-108) 10/27/18 22:08 ABG O2 Saturation 96.7 % (94-97) 10/27/18 22:08 PT/INR, D-dimer PT 11.5 sec (9.0-12.0) 10/27/18 17:23 INR 1.1 (<1.2) 10/27/18 17:23 D-Dimer 0.36 mg/L FEU (<0.60) 10/21/18 11:36 Abnormal lab findings: Abnormal Labs 10/21/18 10/21/18 10/22/18 11:36 18:35 02:15 RBC Hgb Hct Plt Count Lymphocytes # APTT 34.4 H ABG pH ABG pCO2 ABG pO2 ABG HCO3 ABG Total CO2 ABG O2 Saturation ABG Hematocrit ABG Potassium ABG Ionized Calcium ABG Glucose ABG Lactic Acid Hemoglobin Potassium Chloride 113 H Carbon Dioxide 19 L Creatinine Glucose POC Glucose (mg/dL) Calcium Total Bilirubin Alkaline Phosphatase Total Protein Albumin Triglycerides 195 H HDL Cholesterol 33 L Arterial Blood Potassium Arterial Blood Glucose Crossmatch 10/22/18 10/24/18 10/24/18 02:15 07:25 07:25 RBC Hgb Hct Plt Count Lymphocytes # APTT 49.5 H ABG pH ABG pCO2 ABG pO2 ABG HCO3 ABG Total CO2 ABG O2 Saturation ABG Hematocrit ABG Potassium ABG Ionized Calcium ABG Glucose ABG Lactic Acid Hemoglobin Potassium Chloride Carbon Dioxide Creatinine 1.30 H Glucose 128 H POC Glucose (mg/dL) Calcium Total Bilirubin Alkaline Phosphatase Total Protein Albumin Triglycerides HDL Cholesterol Arterial Blood Potassium Arterial Blood Glucose Crossmatch See Detail 10/25/18 10/26/18 10/26/18 13:30 05:55 05:55 RBC Hgb Hct Plt Count Lymphocytes # APTT ABG pH ABG pCO2 ABG pO2 ABG HCO3 ABG Total CO2 ABG O2 Saturation ABG Hematocrit ABG Potassium ABG Ionized Calcium ABG Glucose ABG Lactic Acid Hemoglobin Potassium 5.7 H Chloride 112 H 108 H Carbon Dioxide 18 L Creatinine Glucose 117 H POC Glucose (mg/dL) Calcium Total Bilirubin Alkaline Phosphatase Total Protein Albumin Triglycerides HDL Cholesterol Arterial Blood Potassium Arterial Blood Glucose Crossmatch See Detail 10/27/18 10/27/18 10/27/18 05:18 08:43 12:02 RBC Hgb Hct Plt Count Lymphocytes # APTT ABG pH 7.30 L ABG pCO2 47 H ABG pO2 172 H 200 H ABG HCO3 ABG Total CO2 25 H 25 H ABG O2 Saturation 99.5 H 99.6 H ABG Hematocrit 48 H ABG Potassium 5.0 H ABG Ionized Calcium ABG Glucose 103 H 109 H ABG Lactic Acid Hemoglobin Potassium Chloride 108 H Carbon Dioxide Creatinine Glucose POC Glucose (mg/dL) Calcium Total Bilirubin Alkaline Phosphatase Total Protein Albumin Triglycerides HDL Cholesterol Arterial Blood Potassium 5.0 H Arterial Blood Glucose 103 H 109 H Crossmatch 10/27/18 10/27/18 10/27/18 12:47 13:18 13:41 RBC Hgb Hct Plt Count Lymphocytes # APTT ABG pH 7.34 L 7.33 L ABG pCO2 46 H ABG pO2 >420 H 231 H 210 H ABG HCO3 ABG Total CO2 26 H 26 H 25 H ABG O2 Saturation 100.0 H 99.8 H 99.8 H ABG Hematocrit ABG Potassium 4.9 H 5.5 H 5.2 H ABG Ionized Calcium 3.9 L 4.2 L 4.2 L ABG Glucose 101 H 176 H 176 H ABG Lactic Acid Hemoglobin 11.8 L 11.4 L 11.5 L Potassium Chloride Carbon Dioxide Creatinine Glucose POC Glucose (mg/dL) Calcium Total Bilirubin Alkaline Phosphatase Total Protein Albumin Triglycerides HDL Cholesterol Arterial Blood Potassium 4.9 H 5.5 H 5.2 H Arterial Blood Glucose 101 H 176 H 176 H Crossmatch 10/27/18 10/27/18 10/27/18 14:11 14:41 16:06 RBC Hgb Hct Plt Count Lymphocytes # APTT ABG pH 7.34 L ABG pCO2 46 H ABG pO2 357 H 257 H 186 H ABG HCO3 ABG Total CO2 27 H 26 H 26 H ABG O2 Saturation 100.0 H 100.0 H 99.6 H ABG Hematocrit ABG Potassium 4.9 H 4.9 H ABG Ionized Calcium 4.2 L 4.2 L ABG Glucose 168 H 178 H 135 H ABG Lactic Acid 1.7 H 2.5 H* Hemoglobin 11.4 L 11.2 L 12.0 L Potassium Chloride Carbon Dioxide Creatinine Glucose POC Glucose (mg/dL) Calcium Total Bilirubin Alkaline Phosphatase Total Protein Albumin Triglycerides HDL Cholesterol Arterial Blood Potassium 4.9 H 4.9 H Arterial Blood Glucose 168 H 178 H 135 H Crossmatch 10/27/18 10/27/18 10/27/18 17:23 17:23 17:23 RBC 4.29 L Hgb 12.6 L D Hct 37.4 L Plt Count 129 L Lymphocytes # 0.8 L APTT ABG pH ABG pCO2 ABG pO2 ABG HCO3 ABG Total CO2 ABG O2 Saturation ABG Hematocrit ABG Potassium ABG Ionized Calcium ABG Glucose ABG Lactic Acid Hemoglobin Potassium Chloride 108 H Carbon Dioxide Creatinine Glucose 116 H POC Glucose (mg/dL) 123 H Calcium 8.3 L Total Bilirubin 1.4 H Alkaline Phosphatase Total Protein 5.3 L Albumin 3.4 L Triglycerides HDL Cholesterol Arterial Blood Potassium Arterial Blood Glucose Crossmatch 10/27/18 10/27/18 10/27/18 17:33 18:06 20:10 RBC Hgb Hct Plt Count Lymphocytes # APTT ABG pH 7.30 L ABG pCO2 54 H ABG pO2 207 H ABG HCO3 26 H ABG Total CO2 28 H ABG O2 Saturation 99.1 H ABG Hematocrit ABG Potassium ABG Ionized Calcium ABG Glucose ABG Lactic Acid Hemoglobin Potassium Chloride Carbon Dioxide Creatinine Glucose POC Glucose (mg/dL) 133 H 174 H Calcium Total Bilirubin Alkaline Phosphatase Total Protein Albumin Triglycerides HDL Cholesterol Arterial Blood Potassium Arterial Blood Glucose Crossmatch 10/27/18 10/27/18 10/27/18 20:50 21:25 23:25 RBC 3.99 L Hgb 11.8 L Hct 35.3 L Plt Count Lymphocytes # 0.7 L APTT ABG pH ABG pCO2 ABG pO2 ABG HCO3 ABG Total CO2 ABG O2 Saturation ABG Hematocrit ABG Potassium ABG Ionized Calcium ABG Glucose ABG Lactic Acid Hemoglobin Potassium Chloride Carbon Dioxide Creatinine Glucose POC Glucose (mg/dL) 178 H 170 H Calcium Total Bilirubin Alkaline Phosphatase Total Protein Albumin Triglycerides HDL Cholesterol Arterial Blood Potassium Arterial Blood Glucose Crossmatch 10/27/18 10/28/18 10/28/18 23:29 00:21 01:24 RBC 3.66 L Hgb 11.0 L Hct 32.4 L Plt Count 134 L Lymphocytes # 0.4 L APTT ABG pH ABG pCO2 ABG pO2 ABG HCO3 ABG Total CO2 ABG O2 Saturation ABG Hematocrit ABG Potassium ABG Ionized Calcium ABG Glucose ABG Lactic Acid Hemoglobin Potassium Chloride Carbon Dioxide Creatinine Glucose POC Glucose (mg/dL) 147 H 164 H Calcium Total Bilirubin Alkaline Phosphatase Total Protein Albumin Triglycerides HDL Cholesterol Arterial Blood Potassium Arterial Blood Glucose Crossmatch 10/28/18 10/28/18 10/28/18 02:28 03:31 04:26 RBC Hgb Hct Plt Count Lymphocytes # APTT ABG pH ABG pCO2 ABG pO2 ABG HCO3 ABG Total CO2 ABG O2 Saturation ABG Hematocrit ABG Potassium ABG Ionized Calcium ABG Glucose ABG Lactic Acid Hemoglobin Potassium Chloride Carbon Dioxide Creatinine Glucose POC Glucose (mg/dL) 150 H 147 H 154 H Calcium Total Bilirubin Alkaline Phosphatase Total Protein Albumin Triglycerides HDL Cholesterol Arterial Blood Potassium Arterial Blood Glucose Crossmatch 10/28/18 10/28/18 10/28/18 04:30 04:30 05:24 RBC 3.83 L Hgb 11.3 L Hct 33.4 L Plt Count 137 L Lymphocytes # 0.4 L APTT ABG pH ABG pCO2 ABG pO2 ABG HCO3 ABG Total CO2 ABG O2 Saturation ABG Hematocrit ABG Potassium ABG Ionized Calcium ABG Glucose ABG Lactic Acid Hemoglobin Potassium Chloride Carbon Dioxide Creatinine Glucose 142 H POC Glucose (mg/dL) 148 H Calcium Total Bilirubin Alkaline Phosphatase 34 L Total Protein 5.5 L Albumin Triglycerides HDL Cholesterol Arterial Blood Potassium Arterial Blood Glucose Crossmatch 10/28/18 10/28/18 10/28/18 06:48 08:55 10:58 RBC Hgb Hct Plt Count Lymphocytes # APTT ABG pH ABG pCO2 ABG pO2 ABG HCO3 ABG Total CO2 ABG O2 Saturation ABG Hematocrit ABG Potassium ABG Ionized Calcium ABG Glucose ABG Lactic Acid Hemoglobin Potassium Chloride Carbon Dioxide Creatinine Glucose POC Glucose (mg/dL) 146 H 145 H 127 H Calcium Total Bilirubin Alkaline Phosphatase Total Protein Albumin Triglycerides HDL Cholesterol Arterial Blood Potassium Arterial Blood Glucose Crossmatch 10/28/18 10/28/18 12:21 14:09 RBC Hgb Hct Plt Count Lymphocytes # APTT ABG pH ABG pCO2 ABG pO2 ABG HCO3 ABG Total CO2 ABG O2 Saturation ABG Hematocrit ABG Potassium ABG Ionized Calcium ABG Glucose ABG Lactic Acid Hemoglobin Potassium Chloride Carbon Dioxide Creatinine Glucose POC Glucose (mg/dL) 122 H 127 H Calcium Total Bilirubin Alkaline Phosphatase Total Protein Albumin Triglycerides HDL Cholesterol Arterial Blood Potassium Arterial Blood Glucose Crossmatch - Diagnostic Findings Chest x-ray: image reviewed (As noted in HPI. Mostly postoperative atelectasis, minimal,) Assessment and Plan Assessment: Impression: Severe triple vessel coronary artery disease, status post CABG History of hypertension Dyslipidemia Postoperative atelectasis, expected findings after CABG. Family history of hypertension Never smoked FEV1 is 102% of predicted. Recommendation: Continue postoperative care including Plavix, beta blockers, aspirin, Continue to wean oxygen as tolerated Continue incentive spirometry Monitor daily x-rays and labs Increase activity and ambulate as tolerated Continue bronchodilators GI and DVT prophylaxis. We'll continue to follow. Time with Patient: Greater than 30
[2018-10-28 15:13] LABS: Glucose,Whole Blood 117 mg/dL (75-99)
[2018-10-28] MEDS: CLEVIDIPINE BUTYRATE 25 MG in EMPTY BAG 1 BAG IV SCH (15:37)
[2018-10-28] MEDS ORDERED: fentaNYL (PF) 50 MCG/ML 2 ML AMP IVP ONE (15:52)
[2018-10-28] MEDS ORDERED: METOPROLOL TARTRATE 12.5 MG TAB PO STA (15:56)
[2018-10-28 16:18] LABS: Glucose,Whole Blood 114 mg/dL (75-99)
[2018-10-28 17:16] LABS: Glucose,Whole Blood 122 mg/dL (75-99)
[2018-10-28 18:24] LABS: Glucose,Whole Blood 131 mg/dL (75-99)
[2018-10-28 19:17] LABS: Glucose,Whole Blood 127 mg/dL (75-99)
[2018-10-28 20:24] LABS: Glucose,Whole Blood 112 mg/dL (75-99)
[2018-10-28] MEDS: traMADol 50 MG TAB PO PRN ×2 (20:37→21:49)
[2018-10-28] MEDS: METOPROLOL TARTRATE 25 MG TAB PO SCH (21:48)
[2018-10-28] MEDS: SENNOSIDES-DOCUSATE SODIUM 1 EACH TAB PO SCH (21:49)
[2018-10-28 21:55] LABS: Glucose,Whole Blood 108 mg/dL (75-99)
[2018-10-28 23:13] LABS: Glucose,Whole Blood 121 mg/dL (75-99)
[2018-10-29 00:47] LABS: Glucose,Whole Blood 127 mg/dL (75-99)
[2018-10-29 02:23] LABS: Glucose,Whole Blood 118 mg/dL (75-99)
[2018-10-29 03:20] LABS: Glucose,Whole Blood 121 mg/dL (75-99)
[2018-10-29 04:25] LABS: Glucose,Whole Blood 108 mg/dL (75-99)
[2018-10-29 04:41] LABS: Basophils % (A) 0 %; Eosinophils % (A) 0 %; HCT 29.8 % (39.0-53.0); HGB 9.9 gm/dL (13.0-17.5); Lymphocytes # (A) 1.4 k/uL (1.0-4.8); Lymphocytes % (A) 16 %; MCH 29.6 pg (25.0-35.0); MCHC 33.4 g/dL (31.0-37.0); MCV 88.4 fL (80.0-100.0); Mean Platelet Volume 9.1; Monocytes # (A) 0.5 k/uL (0-1.0); Monocytes % (A) 6 %; Neutrophils # (A) 6.6 k/uL (1.3-7.7); Neutrophils % (A) 76 %; Platelet Count 133 k/uL (150-450); RBC 3.37 m/uL (4.30-5.90); WBC 8.6 k/uL (3.8-10.6)
[2018-10-29 04:47] LABS: Ionized Calcium 4.9 mg/dL (4.5-5.3)
[2018-10-29 05:01] LABS: Albumin 3.1 g/dL (3.5-5.0); Calcium 8.6 mg/dL (8.4-10.2); Magnesium 2.3 mg/dL (1.6-2.3); Potassium 4.5 mmol/L (3.5-5.1); Total Protein 5.1 g/dL (6.3-8.2)
[2018-10-29] MEDS: METOCLOPRAMIDE 5 MG/ML 2 ML VIAL IVP PRN (05:45)
[2018-10-29] MEDS: traMADol 50 MG TAB PO PRN ×2 (06:27→15:38)
[2018-10-29] MEDS: PANTOPRAZOLE 40 MG TABLET PO SCH (06:28)
[2018-10-29] MEDS: KETOROLAC 30 MG/ML 1 ML VIAL IVP SCH ×4 (06:28→23:39)
--- NOTE | 2018-10-29 06:32 | XR ---
EXAMINATION TYPE: XR chest 1V portable DATE OF EXAM: 10/29/2018 HISTORY: Post Operative Cardiac Surgery. REFERENCE: Previous study dated 10/28/2018. FINDINGS: There has been a midline sternotomy. There is a right pleural drain in place. There are heart is enlarged. There is bibasilar airspace disease and small, bilateral effusions. The overall appearance is very similar to previous. IMPRESSION: NO SIGNIFICANT INTERVAL CHANGE IN THE APPEARANCE OF THE CHEST.
[2018-10-29 06:34] LABS: Glucose,Whole Blood 101 mg/dL (75-99)
[2018-10-29] MEDS: NITROGLYCERIN-D5W PMX 50 MG in DEXTROSE/WATER 1 250ML.BAG IV SCH (06:34)
[2018-10-29] MEDS: METOPROLOL TARTRATE 25 MG TAB PO SCH ×2 (07:29→20:28)
[2018-10-29 07:44] LABS: Glucose,Whole Blood 133 mg/dL (75-99)
--- NOTE | 2018-10-29 07:46 | CONS ---
CONSULTATION DATE OF CONSULTATION: October 28, 2018 REASON FOR CONSULTATION: Medical management requested by Dr. Brandt. CONSULTATION: This is a pleasant 48-year-old gentleman, pleasant gentleman who was admitted to the hospital following unstable angina. Cardiac cath that shows severe triple-vessel disease. The patient underwent coronary bypass yesterday by Dr. Germaine Brandt. The patient was successfully extubated. Currently lying in bed. Three chest tubes are present. Telemetry shows sinus rhythm. He is on insulin drip. Awake. Some pain at the operative site is present. present at the bedside. REVIEW OF SYSTEMS: CONSTITUTIONAL: None. HEENT: None. RESPIRATORY: Slightly short of breath. CARDIOVASCULAR: Some incision site chest pain. GASTROINTESTINAL: None. GENITOURINARY: None. MUSCULOSKELETAL: None. DERMATOLOGIC, HEMATOLOGIC, LYMPHATIC: none. PSYCHIATRY: None. NEUROLOGICAL: None. PAST MEDICAL HISTORY: Coronary artery disease, hyperlipidemia, hypertension. PAST SURGICAL HISTORY: Hernia repair, tonsillectomy, left knee scope. SOCIAL HISTORY: No smoking. No alcohol. . FAMILY HISTORY: Hypertension. MEDICATIONS: Current medications include albumin, DuoNeb, IV amiodarone, Norvasc, aspirin, Lipitor, Dulcolax, IV Ancef, IV clevidipine, Plavix, insulin drip, Lopressor, Protonix, Senokot-S. PHYSICAL EXAMINATION: VITAL SIGNS: On examination afebrile, pulse 77, respiration 14, blood pressure 120/75, pulse ox 95% on 2 L. GENERAL APPEARANCE: Well built, BMI 36.6. Lying in bed, awake, a bit tired-appearing. EYES: Pupils equal. Conjunctivae normal. HEENT: External appearance of nose and ears normal. Oral cavity normal. NECK: JVD unable to assess. Mass not palpable. RESPIRATORY: Effort normal. LUNGS: Slightly decreased breath sounds. CARDIOVASCULAR: 1st and 2nd sounds no edema. ABDOMEN: Soft, nontender. Liver and spleen not palpable. LYMPHATICS: No lymph nodes palpable in the neck and axilla. PSYCHIATRY: Alert and oriented x3. Mood and affect normal. MUSCULOSKELETAL: None. Chest wall: [address]. INVESTIGATIONS: White count 7.4, hemoglobin 11.3, down from 15.9. Potassium 4.7. BUN and creatinine is normal. Accu-Cheks are noted. Liver ultrasound results noted. ASSESSMENT: 1. Status post coronary artery bypass. 2. Coronary artery disease. 3. Obesity; BMI 35. 4. Hyperlipidemia. 5. Acute postoperative blood loss anemia expected from surgery. 6. Lactic acidosis type 2. 7. Reactive hypoalbuminemia from stress of surgery. PLAN: Continue current medication and treatment plan including those listed above. Care was discussed with the patient and . No new questions. Thank you, Dr. Brandt. JIN / JUNG: [id number] /
--- NOTE | 2018-10-29 07:47 | P.PN ---
Subjective Progress Note Date: 10/29/18 Principal diagnosis: Severe coronary artery disease This is a pleasant 48-year-old gentleman with a past medical history significant for hypertension and dyslipidemia who presented to the hospital was chest discomfort with classical anginal symptoms. He was ruled out for acute coronary event. He underwent a heart catheterization and that revealed severe triple- vessel coronary artery disease. The RCA has a critical lesion, the left circumflex is chronically occluded, and the LAD has a critical lesion as well. I did advise for the patient to be seen by cardiothoracic surgeon for evaluation of coronary artery that is grafting. The patient underwent coronary artery bypa ss grafting yesterday, October 272018. On follow-up with the patient today, 10/29/2018, the patient continues to be doing good clinically. Hemodynamically he is stable. He is in pain because of the chest tube. He continues to be on dual antiplatelet therapy along with a statin. Objective - Vital Signs Vital signs: Vital Signs Temp 98 F 10/29/18 00:00 Pulse 96 10/29/18 05:30 Resp 21 10/29/18 05:30 BP 108/70 10/29/18 00:00 Pulse Ox 94 L 10/29/18 05:30 Intake & Output 10/28/18 10/29/18 10/29/18 18:59 06:59 18:59 Intake Total 878.518 688.308 Output Total 1789 825 Balance -910.482 -136.692 Weight 140.1 kg 131.1 kg Intake: IV 770 542 0.9 20 0.9NS Cardiac Output 20 0.9NS Pressure Bag 90 72 Lactated Ringers 1,000 ml 540 370 @ 20 mls/hr IV .Q24H [facility] Rx#:[id number] ceFAZolin 3 gm In Sodium 100 100 Chloride 0.9% 100 ml @ 100 mls/hr IVPB Q8HR [facility] Rx#:[id number] Intake, IV Titration 108.518 26.308 Amount Clevidipine Butyrate 25 4.267 mg In Empty Bag 1 bag @ 1 MG/HR 2 mls/hr IV .Q24H [facility] Rx#:[id number] Insulin Regular 100 unit 70.751 26.308 In Sodium Chloride 0.9% 100 ml @ Titrate IV .Q0M [facility] Rx#:[id number] Nitroglycerin-D5w Pmx 50 33.5 mg In Dextrose/Water 1 250ml.bag @ 5 MCG/MIN 1.5 mls/hr IV .Q24H [facility] Rx#: [id number] Oral 120 Output: Chest Tube Drainage 489 200 Left Pleural Chest Tube 300 90 Mediastinal Chest Tube X 130 90 2 Right Chest Tube 59 20 Drainage 50 30 Left Arm 10 10 Left Knee 20 10 Right Knee 20 10 Urine 1250 595 Other: Voiding Method Indwelling Catheter Indwelling Catheter ABP, PAP, CO, CI - Last Documented Arterial Blood Pressure 148/64 Pulmonary Artery Pressure 15/6 Cardiac Output 6.6 Cardiac Index 2.5 - Constitutional General appearance: Present: no acute distress - Respiratory Respiratory: bilateral: CTA - Cardiovascular Rhythm: regular Heart sounds: normal: S1, S2 - Labs CBC & Chem 7: 10/29/18 04:30 10/29/18 04:30 Labs: Abnormal Lab Results - Last 24 Hours (Table) 10/27/18 10/28/18 10/28/18 Range/Units 17:33 08:55 10:58 RBC (4.30-5.90) m/uL Hgb (13.0-17.5) gm/dL Hct (39.0-53.0) % Plt Count (150-450) k/uL ABG pH 7.30 L (7.35-7.45) ABG pCO2 54 H (35-45) mmHg ABG pO2 207 H (83-108) mmHg ABG HCO3 26 H (21-25) mmol/L ABG Total CO2 28 H (19-24) mmol/L ABG O2 Saturation 99.1 H (94-97) % Glucose (74-99) mg/dL POC Glucose (mg/dL) 145 H 127 H (75-99) mg/dL Total Protein (6.3-8.2) g/dL Albumin (3.5-5.0) g/dL 10/28/18 10/28/18 10/28/18 Range/Units 12:21 14:09 15:01 RBC (4.30-5.90) m/uL Hgb (13.0-17.5) gm/dL Hct (39.0-53.0) % Plt Count (150-450) k/uL ABG pH (7.35-7.45) ABG pCO2 (35-45) mmHg ABG pO2 (83-108) mmHg ABG HCO3 (21-25) mmol/L ABG Total CO2 (19-24) mmol/L ABG O2 Saturation (94-97) % Glucose (74-99) mg/dL POC Glucose (mg/dL) 122 H 127 H 117 H (75-99) mg/dL Total Protein (6.3-8.2) g/dL Albumin (3.5-5.0) g/dL 10/28/18 10/28/18 10/28/18 Range/Units 16:06 17:05 18:12 RBC (4.30-5.90) m/uL Hgb (13.0-17.5) gm/dL Hct (39.0-53.0) % Plt Count (150-450) k/uL ABG pH (7.35-7.45) ABG pCO2 (35-45) mmHg ABG pO2 (83-108) mmHg ABG HCO3 (21-25) mmol/L ABG Total CO2 (19-24) mmol/L ABG O2 Saturation (94-97) % Glucose (74-99) mg/dL POC Glucose (mg/dL) 114 H 122 H 131 H (75-99) mg/dL Total Protein (6.3-8.2) g/dL Albumin (3.5-5.0) g/dL 10/28/18 10/28/18 10/28/18 Range/Units 19:03 20:10 21:44 RBC (4.30-5.90) m/uL Hgb (13.0-17.5) gm/dL Hct (39.0-53.0) % Plt Count (150-450) k/uL ABG pH (7.35-7.45) ABG pCO2 (35-45) mmHg ABG pO2 (83-108) mmHg ABG HCO3 (21-25) mmol/L ABG Total CO2 (19-24) mmol/L ABG O2 Saturation (94-97) % Glucose (74-99) mg/dL POC Glucose (mg/dL) 127 H 112 H 108 H (75-99) mg/dL Total Protein (6.3-8.2) g/dL Albumin (3.5-5.0) g/dL 05/04/0810/29/18 10/29/18 Range/Units 23:01 00:31 02:12 RBC (4.30-5.90) m/uL Hgb (13.0-17.5) gm/dL Hct (39.0-53.0) % Plt Count (150-450) k/uL ABG pH (7.35-7.45) ABG pCO2 (35-45) mmHg ABG pO2 (83-108) mmHg ABG HCO3 (21-25) mmol/L ABG Total CO2 (19-24) mmol/L ABG O2 Saturation (94-97) % Glucose (74-99) mg/dL POC Glucose (mg/dL) 121 H 127 H 118 H (75-99) mg/dL Total Protein (6.3-8.2) g/dL Albumin (3.5-5.0) g/dL 10/29/18 10/29/18 10/29/18 Range/Units 03:09 04:13 04:30 RBC 3.37 L (4.30-5.90) m/uL Hgb 9.9 L (13.0-17.5) gm/dL Hct 29.8 L (39.0-53.0) % Plt Count 133 L (150-450) k/uL ABG pH (7.35-7.45) ABG pCO2 (35-45) mmHg ABG pO2 (83-108) mmHg ABG HCO3 (21-25) mmol/L ABG Total CO2 (19-24) mmol/L ABG O2 Saturation (94-97) % Glucose (74-99) mg/dL POC Glucose (mg/dL) 121 H 108 H (75-99) mg/dL Total Protein (6.3-8.2) g/dL Albumin (3.5-5.0) g/dL 10/29/18 10/29/18 10/29/18 Range/Units 04:30 06:22 07:33 RBC (4.30-5.90) m/uL Hgb (13.0-17.5) gm/dL Hct (39.0-53.0) % Plt Count (150-450) k/uL ABG pH (7.35-7.45) ABG pCO2 (35-45) mmHg ABG pO2 (83-108) mmHg ABG HCO3 (21-25) mmol/L ABG Total CO2 (19-24) mmol/L ABG O2 Saturation (94-97) % Glucose 101 H (74-99) mg/dL POC Glucose (mg/dL) 101 H 133 H (75-99) mg/dL Total Protein 5.1 L (6.3-8.2) g/dL Albumin 3.1 L (3.5-5.0) g/dL Assessment and Plan Assessment: Assessment #1 severe triple-vessel coronary artery disease and status post coronary artery bypass graft #2 hypertension #3 dyslipidemia Plan #1 continue the current medical regimen #2 follow-up with the patient
[2018-10-29] MEDS: IPRATROPIUM-ALBUTEROL 3 ML NEB INHALATION SCH ×4 (08:14→20:57)
[2018-10-29] MEDS: CLOPIDOGREL 75 MG TAB PO SCH (08:43)
[2018-10-29] MEDS: ASPIRIN 325 MG TAB PO SCH (08:43)
[2018-10-29] MEDS: amLODIPine 5 MG TAB PO SCH (08:43)
[2018-10-29] MEDS: HEPARIN SODIUM,PORCINE 5,000 UNIT/ML 1 ML VIAL SQ SCH ×3 (08:44→23:39)
[2018-10-29] MEDS: ATORVASTATIN 40 MG TAB PO SCH (08:44)
[2018-10-29] MEDS: MUPIROCIN 2% OINT 22 GM TUBE NASAL SCH ×2 (09:26→20:28)
--- NOTE | 2018-10-29 10:26 | P.PN ---
Subjective Progress Note Date: 10/29/18 Principal diagnosis: Postoperative day #2, urgent quadruple coronary artery bypass grafting. Postoperative day #2, urgent quadruple coronary artery bypass grafting using MACHADO to LAD, left radial artery to occluded ramus intermedius reverse saphenous vein graft to posterior descending artery, then in an end to side fashion to the left ventricular branch of the right coronary artery. His postoperative course has been relatively uneventful, patient was extubated shortly after he was sent to the intensive care unit, patient continues to do well, no cough no wheezing no shortness of breath, has some vague chest wall pain, and occasional nausea. His chest x-ray was reviewed today, and it showed no significant interval change, bibasilar atelectasis and small effusions noted. And that is expected. Objective - Vital Signs Vital signs: Vital Signs Temp 98.0 F 10/29/18 08:00 Pulse 75 10/29/18 09:00 Resp 17 10/29/18 09:00 BP 108/70 10/29/18 00:00 Pulse Ox 92 L 10/29/18 09:00 Intake & Output 10/28/18 10/29/18 10/29/18 18:59 06:59 18:59 Intake Total 878.518 688.308 108 Output Total 1789 825 255 Balance -910.482 -136.692 -147 Weight 140.1 kg 131.1 kg Intake: IV 770 542 108 0.9 20 0.9NS Cardiac Output 20 0.9NS Pressure Bag 90 72 18 Lactated Ringers 1,000 ml 540 370 90 @ 20 mls/hr IV .Q24H [facility] Rx#:[id number] ceFAZolin 3 gm In Sodium 100 100 Chloride 0.9% 100 ml @ 100 mls/hr IVPB Q8HR [facility] Rx#:[id number] Intake, IV Titration 108.518 26.308 Amount Clevidipine Butyrate 25 4.267 mg In Empty Bag 1 bag @ 1 MG/HR 2 mls/hr IV .Q24H [facility] Rx#:[id number] Insulin Regular 100 unit 70.751 26.308 In Sodium Chloride 0.9% 100 ml @ Titrate IV .Q0M [facility] Rx#:[id number] Nitroglycerin-D5w Pmx 50 33.5 mg In Dextrose/Water 1 250ml.bag @ 5 MCG/MIN 1.5 mls/hr IV .Q24H [facility] Rx#: [id number] Oral 120 Output: Chest Tube Drainage 489 200 120 Left Pleural Chest Tube 300 90 60 Mediastinal Chest Tube X 130 90 50 2 Right Chest Tube 59 20 10 Drainage 50 30 Left Arm 10 10 Left Knee 20 10 Right Knee 20 10 Urine 1250 595 135 Other: Voiding Method Indwelling Catheter Indwelling Catheter Indwelling Catheter ABP, PAP, CO, CI - Last Documented Arterial Blood Pressure 107/51 Pulmonary Artery Pressure 15/6 Cardiac Output 6.6 Cardiac Index 2.5 - Exam GENERAL EXAM: Alert, pleasant, 48-year-old white male, and at bedside recliner, in no distress. HEAD: Normocephalic/atraumatic. ENT: PERRLA, EOMI, no icterus, throat is clear, moist mucous membranes, no neck masses, no adenopathy. CHEST: Postsurgical, No chest wall deformity. Symmetrical expansion. Slightly diminished breath sounds at the bases. LUNGS: Diminished breath sound at the bases no crackles or rhonchi or wheezes. CVS: Regular rate and rhythm, normal S1 and S2, no gallops, no murmurs, no rubs ABDOMEN: Soft, nontender. No hepatosplenomegaly, normal bowel sounds, no guarding or rigidity. EXTREMITIES: No clubbing, no edema, no cyanosis, 2+ pulses and upper and lower extremities. SKIN: No rashes CENTRAL NERVOUS SYSTEM: Alert and oriented -3. No focal deficits, tone is normal in all 4 extremities. PSYCHIATRIC: Normal mood, affect and mental status examination. - Labs CBC & Chem 7: 10/29/18 04:30 10/29/18 04:30 Labs: Abnormal Lab Results - Last 24 Hours (Table) 10/27/18 10/28/18 10/28/18 Range/Units 17:33 10:58 12:21 RBC (4.30-5.90) m/uL Hgb (13.0-17.5) gm/dL Hct (39.0-53.0) % Plt Count (150-450) k/uL ABG pH 7.30 L (7.35-7.45) ABG pCO2 54 H (35-45) mmHg ABG pO2 207 H (83-108) mmHg ABG HCO3 26 H (21-25) mmol/L ABG Total CO2 28 H (19-24) mmol/L ABG O2 Saturation 99.1 H (94-97) % Glucose (74-99) mg/dL POC Glucose (mg/dL) 127 H 122 H (75-99) mg/dL Total Protein (6.3-8.2) g/dL Albumin (3.5-5.0) g/dL 10/28/18 10/28/18 10/28/18 Range/Units 14:09 15:01 16:06 RBC (4.30-5.90) m/uL Hgb (13.0-17.5) gm/dL Hct (39.0-53.0) % Plt Count (150-450) k/uL ABG pH (7.35-7.45) ABG pCO2 (35-45) mmHg ABG pO2 (83-108) mmHg ABG HCO3 (21-25) mmol/L ABG Total CO2 (19-24) mmol/L ABG O2 Saturation (94-97) % Glucose (74-99) mg/dL POC Glucose (mg/dL) 127 H 117 H 114 H (75-99) mg/dL Total Protein (6.3-8.2) g/dL Albumin (3.5-5.0) g/dL 10/28/18 10/28/18 10/28/18 Range/Units 17:05 18:12 19:03 RBC (4.30-5.90) m/uL Hgb (13.0-17.5) gm/dL Hct (39.0-53.0) % Plt Count (150-450) k/uL ABG pH (7.35-7.45) ABG pCO2 (35-45) mmHg ABG pO2 (83-108) mmHg ABG HCO3 (21-25) mmol/L ABG Total CO2 (19-24) mmol/L ABG O2 Saturation (94-97) % Glucose (74-99) mg/dL POC Glucose (mg/dL) 122 H 131 H 127 H (75-99) mg/dL Total Protein (6.3-8.2) g/dL Albumin (3.5-5.0) g/dL 10/28/18 10/28/18 10/28/18 Range/Units 20:10 21:44 23:01 RBC (4.30-5.90) m/uL Hgb (13.0-17.5) gm/dL Hct (39.0-53.0) % Plt Count (150-450) k/uL ABG pH (7.35-7.45) ABG pCO2 (35-45) mmHg ABG pO2 (83-108) mmHg ABG HCO3 (21-25) mmol/L ABG Total CO2 (19-24) mmol/L ABG O2 Saturation (94-97) % Glucose (74-99) mg/dL POC Glucose (mg/dL) 112 H 108 H 121 H (75-99) mg/dL Total Protein (6.3-8.2) g/dL Albumin (3.5-5.0) g/dL 10/29/18 10/29/18 10/29/18 Range/Units 00:31 02:12 03:09 RBC (4.30-5.90) m/uL Hgb (13.0-17.5) gm/dL Hct (39.0-53.0) % Plt Count (150-450) k/uL ABG pH (7.35-7.45) ABG pCO2 (35-45) mmHg ABG pO2 (83-108) mmHg ABG HCO3 (21-25) mmol/L ABG Total CO2 (19-24) mmol/L ABG O2 Saturation (94-97) % Glucose (74-99) mg/dL POC Glucose (mg/dL) 127 H 118 H 121 H (75-99) mg/dL Total Protein (6.3-8.2) g/dL Albumin (3.5-5.0) g/dL 10/29/18 10/29/18 10/29/18 Range/Units 04:13 04:30 04:30 RBC 3.37 L (4.30-5.90) m/uL Hgb 9.9 L (13.0-17.5) gm/dL Hct 29.8 L (39.0-53.0) % Plt Count 133 L (150-450) k/uL ABG pH (7.35-7.45) ABG pCO2 (35-45) mmHg ABG pO2 (83-108) mmHg ABG HCO3 (21-25) mmol/L ABG Total CO2 (19-24) mmol/L ABG O2 Saturation (94-97) % Glucose 101 H (74-99) mg/dL POC Glucose (mg/dL) 108 H (75-99) mg/dL Total Protein 5.1 L (6.3-8.2) g/dL Albumin 3.1 L (3.5-5.0) g/dL 10/29/18 10/29/18 Range/Units 06:22 07:33 RBC (4.30-5.90) m/uL Hgb (13.0-17.5) gm/dL Hct (39.0-53.0) % Plt Count (150-450) k/uL ABG pH (7.35-7.45) ABG pCO2 (35-45) mmHg ABG pO2 (83-108) mmHg ABG HCO3 (21-25) mmol/L ABG Total CO2 (19-24) mmol/L ABG O2 Saturation (94-97) % Glucose (74-99) mg/dL POC Glucose (mg/dL) 101 H 133 H (75-99) mg/dL Total Protein (6.3-8.2) g/dL Albumin (3.5-5.0) g/dL Assessment and Plan Assessment: Impression: Severe triple vessel coronary artery disease, status post CABG, postoperative day #2. History of hypertension Dyslipidemia Postoperative atelectasis, expected findings after CABG. Family history of hypertension Never smoked FEV1 is 102% of predicted. Recommendation: Continue postoperative care including Plavix, beta blockers, aspirin, Continue to wean oxygen as tolerated Continue incentive spirometry Monitor daily x-rays and labs Increase activity and ambulate as tolerated Continue bronchodilators GI and DVT prophylaxis. We'll continue to follow. Time with Patient: Less than 30
[2018-10-29] MEDS: ONDANSETRON 4 MG/2 ML VIAL IVP PRN (11:45)
[2018-10-29] MEDS: INSULIN ASPART (NovoLOG) 100 UNIT/ML VIAL SQ SCH ×3 (12:19→21:19)
[2018-10-29 12:29] LABS: Glucose,Whole Blood 99 mg/dL (75-99)
--- NOTE | 2018-10-29 14:59 | P.PN ---
Subjective Progress Note Date: 10/29/18 Principal diagnosis: Unstable angina, severe triple vessel diffuse coronary artery disease, preserved left ventricular function, totally occluded circumflex system. History of hyp ertension, hyperlipidemia, and family history of hypertension. POD #2 urgent quadruple coronary artery bypass grafting using the left internal mammary artery to the left anterior descending artery as a patch angioplasty, left radial artery from the aorta to the totally occluded ramus intermedius ar princess, a reverse greater saphenous vein graft from the aorta sequentially in a [id number] fashion to the posterior descending artery, then in an end to side fashion to the left ventricular branch of the right coronary artery, endoscopic harvesting of the bilateral greater saphenous veins from the groin to below the knee level, endoscopic harvesting of the left radial artery, intraoperative transesophageal echocardiogram, epi-aortic scanning, and intraoperative graft flow measurements using the [employer] 3D system Patient is currently sitting up to the bedside chair. He is in no acute distress. He currently denies any complaints of pain or shortness of breath. Bedside telemetry showing normal sinus rhythm heart rate 87. He remains hemodynamically stable and is currently on no inotropic or pressor support. He remains afebrile. Right IJ Cordis remains in place with continuous CVP monito ring, current CVP pressure 6 mmHg. Oxygen saturations are 93% on 2 L nasal cannula. Remains complaining of episodes of nausea. Objective - Vital Signs Vital signs: Vital Signs Temp 98.2 F 10/29/18 12:00 Pulse 82 10/29/18 12:00 Resp 15 10/29/18 12:00 BP 114/73 10/29/18 12:00 Pulse Ox 95 10/29/18 12:00 Intake & Output 10/28/18 10/29/18 10/29/18 18:59 06:59 18:59 Intake Total 878.518 688.308 168 Output Total 1789 825 305 Balance -910.482 -136.692 -137 Weight 140.1 kg 131.1 kg Intake: IV 770 542 168 0.9 20 0.9NS Cardiac Output 20 0.9NS Pressure Bag 90 72 18 Lactated Ringers 1,000 ml 540 370 150 @ 20 mls/hr IV .Q24H [facility] Rx#:[id number] ceFAZolin 3 gm In Sodium 100 100 Chloride 0.9% 100 ml @ 100 mls/hr IVPB Q8HR [facility] Rx#:[id number] Intake, IV Titration 108.518 26.308 Amount Clevidipine Butyrate 25 4.267 mg In Empty Bag 1 bag @ 1 MG/HR 2 mls/hr IV .Q24H [facility] Rx#:[id number] Insulin Regular 100 unit 70.751 26.308 In Sodium Chloride 0.9% 100 ml @ Titrate IV .Q0M [facility] Rx#:[id number] Nitroglycerin-D5w Pmx 50 33.5 mg In Dextrose/Water 1 250ml.bag @ 5 MCG/MIN 1.5 mls/hr IV .Q24H [facility] Rx#: [id number] Oral 120 Output: Chest Tube Drainage 489 200 120 Left Pleural Chest Tube 300 90 60 Mediastinal Chest Tube X 130 90 50 2 Right Chest Tube 59 20 10 Drainage 50 30 Left Arm 10 10 Left Knee 20 10 Right Knee 20 10 Urine 1250 595 185 Other: Voiding Method Indwelling Catheter Indwelling Catheter Urinal ABP, PAP, CO, CI - Last Documented Arterial Blood Pressure 144/67 Pulmonary Artery Pressure 15/6 Cardiac Output 6.6 Cardiac Index 2.5 - Constitutional General appearance: Present: cooperative, no acute distress, obese - Respiratory Details: Lungs sounds are essentially clear throughout, diminished his bilateral bases. Respirations are symmetrical and nonlabored. Oxygen saturation are 93% on 2 L nasal cannula. Achieving 1000 mL on his incentive spirometry. Left, right pleural and mediastinal chest tubes remained in place to low continuous wall suction -20 cm H2O. No air leak is present. Chest tubes are draining thin serosanguineous drainage. Left pleural chest tube drained 50 mL output the last 8 hours, 330 mL output in 24 hours. Mediastinal chest tubes put out 40 mL output in the last 8 hours, 150 mL output last 24 hours. Right pleural chest tube without 50 mL output in the last 8 hours, 60 mL output in the last 24 hours. - Cardiovascular Details: Regular rhythm and rate. S1 and S2 present, negative for S3, gallop or murmur. Sternum is stable. Bedside telemetry showing normal sinus rhythm with global ST elevation heart rate 87. Heart hugger is in place and he is demonstrating appropriate use. Atrial and ventricular epicardial pacemaker wires are in place and grounded. Right IJ Cordis in place to continuous CVP monitoring. Current CPP pressure 6 mmHg. No edema present. Knee-high OBDULIA hose and sequential compression devices in place to his bilateral lower extremities. - Gastrointestinal Gastrointestinal Comment(s): Abdomen is soft, nontender and nondistended. Active bowel sounds all 4 abdominal quadrants. No guarding or rigidity. Passing flatus. Tolerating oral intake. - Genitourinary Genitourinary Comment(s): Cutler catheter for accurate I&O. Draining clear yellow urine. 450 mL output in the last 8 hours. - Integumentary Integumentary Comment(s): Skin is warm and dry. No clubbing or cyanosis is present. Midline sternal incision is clean, dry and approximated. Gauze dressing covering sternal incision is clean, dry and intact. Bilateral lower extremity EVH site are clean, dry and approximated. No drainage or redness is present. Bilateral lower extremity AYDE drains in place with 10 mL output in the last 8 hours. Left radial artery harvest site is clean, dry and approximated. No drainage or redness is present. Left arm AYDE drain in place with 10 mL output in the last 8 hours. Left hand is warm to touch. Denies any complaints of numbness or tingling. - Neurologic Neurologic: Present: CNII-XII intact - Musculoskeletal Musculoskeletal: Present: gait normal, generalized weakness, strength equal bilaterally - Psychiatric Psychiatric: Present: A&O x's 3, appropriate affect, intact judgment & insight - Allied health notes Allied health notes reviewed: nursing - Labs CBC & Chem 7: 10/29/18 04:30 10/29/18 04:30 Labs: Abnormal Lab Results - Last 24 Hours (Table) 10/28/18 10/28/18 10/28/18 Range/Units 15:01 16:06 17:05 RBC (4.30-5.90) m/uL Hgb (13.0-17.5) gm/dL Hct (39.0-53.0) % Plt Count (150-450) k/uL Glucose (74-99) mg/dL POC Glucose (mg/dL) 117 H 114 H 122 H (75-99) mg/dL Total Protein (6.3-8.2) g/dL Albumin (3.5-5.0) g/dL 10/28/18 10/28/18 10/28/18 Range/Units 18:12 19:03 20:10 RBC (4.30-5.90) m/uL Hgb (13.0-17.5) gm/dL Hct (39.0-53.0) % Plt Count (150-450) k/uL Glucose (74-99) mg/dL POC Glucose (mg/dL) 131 H 127 H 112 H (75-99) mg/dL Total Protein (6.3-8.2) g/dL Albumin (3.5-5.0) g/dL 10/28/18 10/28/18 10/29/18 Range/Units 21:44 23:01 00:31 RBC (4.30-5.90) m/uL Hgb (13.0-17.5) gm/dL Hct (39.0-53.0) % Plt Count (150-450) k/uL Glucose (74-99) mg/dL POC Glucose (mg/dL) 108 H 121 H 127 H (75-99) mg/dL Total Protein (6.3-8.2) g/dL Albumin (3.5-5.0) g/dL 10/29/18 10/29/18 10/29/18 Range/Units 02:12 03:09 04:13 RBC (4.30-5.90) m/uL Hgb (13.0-17.5) gm/dL Hct (39.0-53.0) % Plt Count (150-450) k/uL Glucose (74-99) mg/dL POC Glucose (mg/dL) 118 H 121 H 108 H (75-99) mg/dL Total Protein (6.3-8.2) g/dL Albumin (3.5-5.0) g/dL 10/29/18 10/29/18 10/29/18 Range/Units 04:30 04:30 06:22 RBC 3.37 L (4.30-5.90) m/uL Hgb 9.9 L (13.0-17.5) gm/dL Hct 29.8 L (39.0-53.0) % Plt Count 133 L (150-450) k/uL Glucose 101 H (74-99) mg/dL POC Glucose (mg/dL) 101 H (75-99) mg/dL Total Protein 5.1 L (6.3-8.2) g/dL Albumin 3.1 L (3.5-5.0) g/dL 10/29/18 Range/Units 07:33 RBC (4.30-5.90) m/uL Hgb (13.0-17.5) gm/dL Hct (39.0-53.0) % Plt Count (150-450) k/uL Glucose (74-99) mg/dL POC Glucose (mg/dL) 133 H (75-99) mg/dL Total Protein (6.3-8.2) g/dL Albumin (3.5-5.0) g/dL - Imaging and Cardiology Chest x-ray: report reviewed, image reviewed Assessment and Plan Assessment: 1. Unstable angina 2. Severe triple-vessel diffuse coronary artery disease, totally occluded circumflex system, status post urgent CABG 3. Preserved left ventricular function 4. Global ST changes with rub, likely pericarditis 5. History of hypertension 6. Hyperlipidemia 7. Family history of hypertension 8. Never smoker with preoperative FEV1 102% of predicted Plan: 1. Continue aspirin, statin, Plavix, beta flako. Will increase beta flako therapy as tolerated. 2. Will increase Norvasc to 5 mg by mouth daily for radial artery spasm prophylaxis. Do not discontinued without clarifying with Dr. Brandt. 3. Wean O2 as tolerated. Encourage incentive spirometry use 10 times every hour while awake.. 4. Will monitor daily labs, x-rays. Electrolyte replacement per protocol. No transfusion. 5. Pain control with current medication regimen. 6. Insulin management per primary care service 7. Increase activity, ambulate as tolerated. PT/OT/cardiac rehab following. 8. Bronchodilators per pulmonology. 9. Discontinue Cordis, bilateral lower extremity AYDE drains, left arm AYDE drain, arterial line, and right and left pleural and mediastinal chest tubes. 10. GI/DVT prophylaxis. 11. Discontinue Cutler catheter. 12. More recommendations to follow based on patient's clinical course. Left, right and mediastinal chest tubes removed without incident today at 9:45 AM. 4 x 4 gauze with impregnated Vaseline gauze to cover and secured with tape. Time with Patient: Greater than 30
[2018-10-29 17:28] LABS: Glucose,Whole Blood 119 mg/dL (75-99)
--- NOTE | 2018-10-29 17:49 | PN ---
PROGRESS NOTE . DATE OF SERVICE: 10/29/2018 This 48-year-old gentleman who was admitted after CAD, CABG is being closely monitored at this time. The patient still has chest tubes. The patient has some possible atelectasis. Hemoglobin is 10.9. Sugars are being closely monitored. PAST MEDICAL HISTORY: Reviewed. REVIEW OF SYSTEMS: CARDIO SYSTEM: As mentioned earlier. RESPIRATORY: As mentioned earlier. GI no nausea or vomiting. : No dysuria. NERVOUS SYSTEM: No numbness or weakness. CURRENT MEDICATIONS: Reviewed and include: 1. Albumin. 2. DuoNeb q.i.d. and p.r.n. 3. Amiodarone. 4. Norvasc 5 mg. 5. Aspirin 320 mg. 6. Lipitor. 7. Dulcolax. 8. Plavix. 9. NovoLog. 10.Toradol. 11.Lopressor. 12.Replacement protocol. PHYSICAL EXAM: Patient is alert and oriented x3. Pulse 82, blood pressure 140/77, respiratory rate 15, temperature 98.2, pulse ox 94% on 2 L. HEENT: Conjunctivae normal. Oral mucosa moist. NECK: No jugular venous distention. No carotid bruit. No lymph node enlargement. CARDIOVASCULAR SYSTEM: S1, S2 muffled. RESPIRATORY: Breath sounds diminished in the bases. A few scattered rhonchi. No crackles. ABDOMEN: Soft, nontender. Legs are no edema, no swelling. CENTRAL NERVOUS SYSTEM: No focal deficits. LABS: WBC 8.6, hemoglobin 9.9. Platelets 133, albumin 3.3. ASSESSMENT: 1. Coronary artery disease status post coronary artery bypass grafting. 2. Hyperlipidemia. 3. Acute postoperative blood loss anemia as expected from the surgery. 4. Lactic acidosis type 2. 5. Dyslipidemia. 6. Possible atelectasis. 7. Thrombocytopenia, mild, possibly delusional. 8. Increased random blood sugar possibly related to stress. 9. History of degenerative joint disease. RECOMMENDATIONS AND DISCUSSION: This 48-year-old gentleman who presented with multiple complex medical issues, at this time I recommend continue to monitor. I would also recommend continue the bronchodilators, incentive spirometry, DVT prophylaxis. Monitor blood sugars closely. Accu-Cheks a.c. and q.h.s. Insulin to scale. Continue the rest of the medications. Closely follow. Also recommend cardiovascular surgery. Further recommendations to follow. MMODL / IJN: [id number] /
[2018-10-29] MEDS: SENNOSIDES-DOCUSATE SODIUM 1 EACH TAB PO SCH (20:28)
[2018-10-29 21:28] LABS: Glucose,Whole Blood 126 mg/dL (75-99)
[2018-10-30] MEDS: NITROGLYCERIN-D5W PMX 50 MG in DEXTROSE/WATER 1 250ML.BAG IV SCH (05:16)
[2018-10-30 05:37] LABS: Basophils % (A) 0 %; Eosinophils # (A) 0.1 k/uL (0-0.7); Eosinophils % (A) 1 %; HCT 27.8 % (39.0-53.0); HGB 9.5 gm/dL (13.0-17.5); Lymphocytes # (A) 1.4 k/uL (1.0-4.8); Lymphocytes % (A) 20 %; MCH 30.7 pg (25.0-35.0); MCHC 34.2 g/dL (31.0-37.0); MCV 89.8 fL (80.0-100.0); Monocytes # (A) 0.4 k/uL (0-1.0); Monocytes % (A) 6 %; Neutrophils # (A) 5.1 k/uL (1.3-7.7); Neutrophils % (A) 71 %; Platelet Count 155 k/uL (150-450); RDW 14.7 % (11.5-15.5); WBC 7.2 k/uL (3.8-10.6)
[2018-10-30 05:50] LABS: ALT 20 U/L (21-72); AST 23 U/L (17-59); Alkaline Phosphatase 42 U/L (38-126); Anion Gap 5 mmol/L; Blood Urea Nitrogen 19 mg/dL (9-20); Calcium 8.5 mg/dL (8.4-10.2); Carbon Dioxide 26 mmol/L (22-30); Chloride 104 mmol/L (98-107); Glucose 94 mg/dL (74-99); Magnesium 2.3 mg/dL (1.6-2.3); Potassium 4.6 mmol/L (3.5-5.1); Sodium 135 mmol/L (137-145); Total Protein 5.1 g/dL (6.3-8.2)
[2018-10-30] MEDS: KETOROLAC 30 MG/ML 1 ML VIAL IVP SCH ×3 (06:28→20:30)
[2018-10-30] MEDS: ONDANSETRON 4 MG/2 ML VIAL IVP PRN (06:28)
--- NOTE | 2018-10-30 06:50 | XR ---
EXAMINATION TYPE: XR chest 1V portable DATE OF EXAM: 10/30/2018 HISTORY: Postop CABG. REFERENCE: Previous study dated 10/29/2018. FINDINGS: There has been a midline sternotomy. The patient's right pleural drain has been removed. No definite pneumothorax is seen. The heart is enlarged. There is left basilar atelectasis. There are small, bilateral effusions. IMPRESSION: CONTINUING POSTOPERATIVE CHANGE.
[2018-10-30] MEDS: INSULIN ASPART (NovoLOG) 100 UNIT/ML VIAL SQ SCH ×4 (07:32→22:22)
[2018-10-30 07:33] LABS: Glucose,Whole Blood 95 mg/dL (75-99)
[2018-10-30] MEDS: IPRATROPIUM-ALBUTEROL 3 ML NEB INHALATION SCH ×4 (07:50→20:36)
[2018-10-30] MEDS: PANTOPRAZOLE 40 MG TABLET PO SCH (08:56)
[2018-10-30] MEDS: ATORVASTATIN 40 MG TAB PO SCH (08:59)
[2018-10-30] MEDS: amLODIPine 5 MG TAB PO SCH (08:59)
[2018-10-30] MEDS: ASPIRIN 325 MG TAB PO SCH (08:59)
[2018-10-30] MEDS: CLOPIDOGREL 75 MG TAB PO SCH (08:59)
[2018-10-30] MEDS: HEPARIN SODIUM,PORCINE 5,000 UNIT/ML 1 ML VIAL SQ SCH ×3 (08:59→22:15)
[2018-10-30] MEDS: METOPROLOL TARTRATE 25 MG TAB PO SCH ×2 (08:59→20:30)
[2018-10-30] MEDS: MUPIROCIN 2% OINT 22 GM TUBE NASAL SCH ×2 (09:01→20:31)
--- NOTE | 2018-10-30 09:29 | P.PN ---
Subjective Progress Note Date: 10/30/18 Principal diagnosis: Unstable angina, severe triple vessel diffuse coronary artery disease, preserved left ventricular function, totally occluded circumflex system. History of hyp ertension, hyperlipidemia, and family history of hypertension. POD #3 urgent quadruple coronary artery bypass grafting using the left internal mammary artery to the left anterior descending artery as a patch angioplasty, left radial artery from the aorta to the totally occluded ramus intermedius ar princess, a reverse greater saphenous vein graft from the aorta sequentially in a [id number] fashion to the posterior descending artery, then in an end to side fashion to the left ventricular branch of the right coronary artery, endoscopic harvesting of the bilateral greater saphenous veins from the groin to below the knee level, endoscopic harvesting of the left radial artery, intraoperative transesophageal echocardiogram, epi-aortic scanning, and intraoperative graft flow measurements using the [employer] system The patient is currently sitting up to the bedside chair. He is in no acute distress. He currently denies any complaints of pain or shortness of breath. Bedside telemetry showing normal sinus rhythm heart rate 85. He remains hemodynamically stable and is currently on no inotropic or pressor support. He remains afebrile. Oxygen saturations are 92% on 4 L nasal cannula. Denies any further episodes of nausea. He reports has been ambulating in the intensive care unit hallway with minimal assistance. He continues to demonstrate good use on his incentive spirometry and achieving 1500 mL. Objective - Vital Signs Vital signs: Vital Signs Temp 97.8 F 10/30/18 04:00 Pulse 86 10/30/18 08:00 Resp 27 H 10/30/18 07:00 BP 118/71 10/30/18 07:00 Pulse Ox 94 L 10/30/18 07:00 Intake & Output 10/29/18 10/30/18 10/30/18 18:59 06:59 18:59 Intake Total 268 120 10 Output Total 555 775 Balance -287 -655 10 Weight 138 kg Intake: IV 268 120 10 0.9NS Pressure Bag 18 Lactated Ringers 1,000 ml 250 120 10 @ 20 mls/hr IV .Q24H [facility] Rx#:[id number] Output: Chest Tube Drainage 120 Left Pleural Chest Tube 60 Mediastinal Chest Tube X 50 2 Right Chest Tube 10 Urine 435 775 Other: Voiding Method Urinal Urinal # Voids 1 ABP, PAP, CO, CI - Last Documented Arterial Blood Pressure 144/67 Pulmonary Artery Pressure 15/6 Cardiac Output 6.6 Cardiac Index 2.5 - Constitutional General appearance: Present: cooperative, no acute distress, obese - Respiratory Details: Lung sounds essentially clear to his bilateral upper lobes, diminished to his bilateral bases. Respirations are symmetrical and nonlabored. Oxygen saturation are 92 percent on 4 L nasal cannula. Achieving 1500 mL on his incentive spirometry. - Cardiovascular Details: Regular rhythm and rate. S1 and S2 present, negative for S3, gallop or murmur. Sternum is stable. Bedside telemetry showing normal sinus rhythm with global elevation of his ST with a heart rate of 85. Heart hugger is in place and he is demonstrating appropriate use. No edema present. Knee-high OBDULIA hose and sequential compression devices in place to his bilateral lower extremities. Atrial and ventricular epicardial pacemaker wires in place and grounded. - Gastrointestinal Gastrointestinal Comment(s): Abdomen is soft, nontender and nondistended. Active bowel sounds all 4 abdominal quadrants. Tolerating oral intake. No guarding or rigidity. Obese. Passing flatus. - Genitourinary Genitourinary Comment(s): Voiding clear yellow urine. 750 mL output in the last 8 hours. - Integumentary Integumentary Comment(s): Skin is warm and dry. No clubbing or cyanosis is present. Midline sternal incision with dressing clean, dry and intact. Bilateral lower extremity EVH site clean, dry and approximated. No drainage or redness is present. Left arm radial harvest sites clean, dry and approximated. No drainage or redness is present. Denies any numbness or pain to his left hand. Left hand warm to touch. - Neurologic Neurologic: Present: CNII-XII intact - Musculoskeletal Musculoskeletal: Present: gait normal, strength equal bilaterally - Psychiatric Psychiatric: Present: A&O x's 3, appropriate affect, intact judgment & insight - Allied health notes Allied health notes reviewed: nursing - Labs CBC & Chem 7: 10/30/18 05:16 10/30/18 05:16 Labs: Abnormal Lab Results - Last 24 Hours (Table) 10/29/18 10/29/18 10/30/18 Range/Units 17:16 21:16 05:16 RBC 3.10 L (4.30-5.90) m/uL Hgb 9.5 L (13.0-17.5) gm/dL Hct 27.8 L (39.0-53.0) % Sodium (137-145) mmol/L POC Glucose (mg/dL) 119 H 126 H (75-99) mg/dL ALT (21-72) U/L Total Protein (6.3-8.2) g/dL Albumin (3.5-5.0) g/dL 10/30/18 Range/Units 05:16 RBC (4.30-5.90) m/uL Hgb (13.0-17.5) gm/dL Hct (39.0-53.0) % Sodium 135 L (137-145) mmol/L POC Glucose (mg/dL) (75-99) mg/dL ALT 20 L (21-72) U/L Total Protein 5.1 L (6.3-8.2) g/dL Albumin 3.0 L (3.5-5.0) g/dL - Imaging and Cardiology Chest x-ray: report reviewed, image reviewed Assessment and Plan Assessment: 1. Unstable angina 2. Severe triple-vessel diffuse coronary artery disease, totally occluded circumflex system, status post urgent CABG 3. Preserved left ventricular function 4. Global ST changes with rub, likely pericarditis 5. History of hypertension 6. Hyperlipidemia 7. Family history of hypertension 8. Never smoker with preoperative FEV1 102% of predicted Plan: 1. Continue aspirin, statin, Plavix and beta flako. Will increase beta flako as tolerated. 2. Continue Norvasc to 5 mg by mouth daily for radial artery spasm prophylaxis. Do not discontinued without clarifying with Dr. Brandt. 3. Wean O2 as tolerated. Encourage incentive spirometry use 10 times every hour while awake.. 4. Will monitor daily labs, x-rays. Electrolyte replacement per protocol. 5. Pain control with current medication regimen. Discontinue tramadol as it is making him nauseous, start acetaminophen 1000 mg by mouth every 6 hours when necessary pain. Continue Toradol. 6. Insulin management per primary care service 7. Increase activity, ambulate as tolerated. PT/OT/cardiac rehab following. 8. Bronchodilators per pulmonology. 9. Lasix 20 mg IV 1 now. 10. GI/DVT prophylaxis. 11. Transfer orders placed for 3 S. cardiac stepdown unit. 12. More recommendations to follow based on patient's clinical course. Time with Patient: Greater than 30
[2018-10-30] MEDS ORDERED: FUROSEMIDE 10 MG/ML 2 ML VIAL IV ONE (09:30)
--- NOTE | 2018-10-30 10:46 | P.PN ---
Subjective Progress Note Date: 10/30/18 Principal diagnosis: Postoperative day #3, urgent quadruple coronary artery bypass grafting. Postoperative day #2, urgent quadruple coronary artery bypass grafting using MACHADO to LAD, left radial artery to occluded ramus intermedius reverse saphenous vein graft to posterior descending artery, then in an end to side fashion to the left ventricular branch of the right coronary artery. His postoperative course has been relatively uneventful, patient was extubated shortly after he was sent to the intensive care unit, patient continues to do well, no cough no wheezing no shortness of breath, has some vague chest wall pain, and occasional nausea. His chest x-ray was reviewed today, and it showed no significant interval change, bibasilar atelectasis and small effusions noted. And that is expected. Patient was reevaluated today on 10/30/2018, postoperative day #3. Patient is status post urgent quadruple coronary artery bypass grafting. He is now sitting in a bedside chair, asymptomatic, and doing extremely well with incentive spirometry just over . 1500 ml Denies shortness of breath cough wheezing or chest pain. He is hemodynamically stable, not requiring any inotropes or pressors. O2 saturation is 92% on 4 L. Already ambulating well in the hallway. Animal assistance is required. Objective - Vital Signs Vital signs: Vital Signs Temp 98.2 F 10/30/18 08:00 Pulse 86 10/30/18 10:00 Resp 15 10/30/18 10:00 BP 118/70 10/30/18 10:00 Pulse Ox 95 10/30/18 10:00 Intake & Output 10/29/18 10/30/18 10/30/18 18:59 06:59 18:59 Intake Total 268 120 20 Output Total 555 775 150 Balance -287 -195 -130 Weight 138 kg Intake: IV 268 120 20 0.9NS Pressure Bag 18 Lactated Ringers 1,000 ml 250 120 20 @ 20 mls/hr IV .Q24H [facility] Rx#:[id number] Output: Chest Tube Drainage 120 Left Pleural Chest Tube 60 Mediastinal Chest Tube X 50 2 Right Chest Tube 10 Urine 435 775 150 Other: Voiding Method Urinal Urinal Urinal # Voids 1 ABP, PAP, CO, CI - Last Documented Arterial Blood Pressure 144/67 Pulmonary Artery Pressure 15/6 Cardiac Output 6.6 Cardiac Index 2.5 - Exam GENERAL EXAM: Alert, pleasant, 48-year-old white male, and at bedside recliner, in no distress. HEAD: Normocephalic/atraumatic. ENT: PERRLA, EOMI, no icterus, throat is clear, moist mucous membranes, no neck masses, no adenopathy. CHEST: Postsurgical, No chest wall deformity. Symmetrical expansion. Slightly diminished breath sounds at the bases. All tubes have been removed. LUNGS: Diminished breath sound at the bases no crackles or rhonchi or wheezes. CVS: Regular rate and rhythm, normal S1 and S2, no gallops, no murmurs, no rubs ABDOMEN: Soft, nontender. No hepatosplenomegaly, normal bowel sounds, no guarding or rigidity. EXTREMITIES: No clubbing, no edema, no cyanosis, 2+ pulses and upper and lower extremities. SKIN: No rashes CENTRAL NERVOUS SYSTEM: Alert and oriented -3. No focal deficits, tone is normal in all 4 extremities. PSYCHIATRIC: Normal mood, affect and mental status examination. - Labs CBC & Chem 7: 10/30/18 05:16 10/30/18 05:16 Labs: Abnormal Lab Results - Last 24 Hours (Table) 10/29/18 10/29/18 10/30/18 Range/Units 17:16 21:16 05:16 RBC 3.10 L (4.30-5.90) m/uL Hgb 9.5 L (13.0-17.5) gm/dL Hct 27.8 L (39.0-53.0) % Sodium (137-145) mmol/L POC Glucose (mg/dL) 119 H 126 H (75-99) mg/dL ALT (21-72) U/L Total Protein (6.3-8.2) g/dL Albumin (3.5-5.0) g/dL 10/30/18 Range/Units 05:16 RBC (4.30-5.90) m/uL Hgb (13.0-17.5) gm/dL Hct (39.0-53.0) % Sodium 135 L (137-145) mmol/L POC Glucose (mg/dL) (75-99) mg/dL ALT 20 L (21-72) U/L Total Protein 5.1 L (6.3-8.2) g/dL Albumin 3.0 L (3.5-5.0) g/dL Assessment and Plan Assessment: Impression: Severe triple vessel coronary artery disease, status post CABG, postoperative day # History of hypertension Dyslipidemia Postoperative atelectasis, expected findings after CABG. Family history of hypertension Never smoked FEV1 is 102% of predicted. Recommendation: Continue postoperative care including Plavix, beta blockers, aspirin, Continue to wean oxygen as tolerated Continue incentive spirometry Monitor daily x-rays and labs Increase activity and ambulate as tolerated Continue bronchodilators GI and DVT prophylaxis. Possible discharge planning in the next 24 hours. We'll continue to follow. Time with Patient: Less than 30
[2018-10-30 12:01] LABS: Glucose,Whole Blood 103 mg/dL (75-99)
--- NOTE | 2018-10-30 13:00 | P.PN ---
Subjective Progress Note Date: 10/30/18 Principal diagnosis: Severe coronary artery disease This is a pleasant 48-year-old gentleman with a past medical history significant for hypertension and dyslipidemia who presented to the hospital was chest discomfort with classical anginal symptoms. He was ruled out for acute coronary event. He underwent a heart catheterization and that revealed severe triple- vessel coronary artery disease. The RCA has a critical lesion, the left circumflex is chronically occluded, and the LAD has a critical lesion as well. The patient underwent coronary artery bypass grafting on October 272018. On follow-up with the patient today, 10/30/2018, the patient continues to be doing good clinically. Hemodynamically he is stable. He is in pain because of the chest tube. He continues to be on dual antiplatelet therapy along with a statin. Objective - Vital Signs Vital signs: Vital Signs Temp 98.4 F 10/30/18 12:00 Pulse 86 10/30/18 12:00 Resp 11 L 10/30/18 12:00 BP 115/71 10/30/18 12:00 Pulse Ox 94 L 10/30/18 12:00 Intake & Output 10/29/18 10/30/18 10/30/18 18:59 06:59 18:59 Intake Total 268 120 20 Output Total 555 775 700 Balance -730 -232 -891 Weight 138 kg Intake: IV 268 120 20 0.9NS Pressure Bag 18 Lactated Ringers 1,000 ml 250 120 20 @ 20 mls/hr IV .Q24H [facility] Rx#:[id number] Output: Chest Tube Drainage 120 Left Pleural Chest Tube 60 Mediastinal Chest Tube X 50 2 Right Chest Tube 10 Urine 435 775 700 Other: Voiding Method Urinal Urinal Urinal # Voids 1 ABP, PAP, CO, CI - Last Documented Arterial Blood Pressure 144/67 Pulmonary Artery Pressure 15/6 Cardiac Output 6.6 Cardiac Index 2.5 - Constitutional General appearance: Present: no acute distress - Respiratory Respiratory: bilateral: diminished - Cardiovascular Rhythm: regular Heart sounds: normal: S1, S2 - Labs CBC & Chem 7: 10/30/18 05:16 10/30/18 05:16 Labs: Abnormal Lab Results - Last 24 Hours (Table) 10/29/18 10/29/18 10/30/18 Range/Units 17:16 21:16 05:16 RBC 3.10 L (4.30-5.90) m/uL Hgb 9.5 L (13.0-17.5) gm/dL Hct 27.8 L (39.0-53.0) % Sodium (137-145) mmol/L POC Glucose (mg/dL) 119 H 126 H (75-99) mg/dL ALT (21-72) U/L Total Protein (6.3-8.2) g/dL Albumin (3.5-5.0) g/dL 10/30/18 10/30/18 Range/Units 05:16 11:50 RBC (4.30-5.90) m/uL Hgb (13.0-17.5) gm/dL Hct (39.0-53.0) % Sodium 135 L (137-145) mmol/L POC Glucose (mg/dL) 103 H (75-99) mg/dL ALT 20 L (21-72) U/L Total Protein 5.1 L (6.3-8.2) g/dL Albumin 3.0 L (3.5-5.0) g/dL Assessment and Plan Assessment: Assessment #1 severe triple-vessel coronary artery disease and status post coronary artery bypass graft #2 hypertension #3 dyslipidemia Plan #1 continue the current medical regimen #2 follow-up with the patient
[2018-10-30 17:17] LABS: Glucose,Whole Blood 99 mg/dL (75-99)
[2018-10-30] MEDS: SENNOSIDES-DOCUSATE SODIUM 1 EACH TAB PO SCH (20:30)
[2018-10-30 20:56] LABS: Glucose,Whole Blood 98 mg/dL (75-99)
[2018-10-31] MEDS: KETOROLAC 30 MG/ML 1 ML VIAL IVP SCH ×5 (00:32→23:49)
[2018-10-31] MEDS: ACETAMINOPHEN TAB 500 MG TAB PO PRN ×3 (03:55→21:06)
[2018-10-31 05:34] LABS: HGB 10.1 gm/dL (13.0-17.5); MCH 29.5 pg (25.0-35.0); MCHC 32.5 g/dL (31.0-37.0); MCV 90.9 fL (80.0-100.0); Mean Platelet Volume 7.1; Platelet Count 232 k/uL (150-450); RBC 3.41 m/uL (4.30-5.90); RDW 14.5 % (11.5-15.5)
[2018-10-31 05:43] LABS: ALT 20 U/L (21-72); AST 25 U/L (17-59); Albumin 3.4 g/dL (3.5-5.0); Alkaline Phosphatase 76 U/L (38-126); Anion Gap 8 mmol/L; Blood Urea Nitrogen 19 mg/dL (9-20); Calcium 8.8 mg/dL (8.4-10.2); Carbon Dioxide 25 mmol/L (22-30); Chloride 105 mmol/L (98-107); Glucose 96 mg/dL (74-99); Potassium 4.4 mmol/L (3.5-5.1); Sodium 138 mmol/L (137-145); Total Protein 5.8 g/dL (6.3-8.2)
--- NOTE | 2018-10-31 07:31 | XR ---
EXAMINATION TYPE: XR chest 2V DATE OF EXAM: 10/31/2018 COMPARISON: 10/30/2018 HISTORY: 48-year-old male postoperative CABG TECHNIQUE: PA and lateral views FINDINGS: Multiple overlying external artifacts and lines. Median sternotomy wires with postoperative clips in the mediastinum. Patchy retrocardiac and left bas ilar density with blunted left costophrenic angle remains. Upper lungs relatively clear. IMPRESSION: Relatively stable small left effusion with adjacent atelectasis and/or consolidation at the left base .
--- NOTE | 2018-10-31 07:46 | PN ---
PROGRESS NOTE Mr. Montoya is a 48-year-old male who presented with angina pectoris, underwent cardiac catheterization by Dr. Loja and was found to have severe triple-vessel coronary artery disease. He subsequently underwent coronary artery bypass grafting by Dr. Brandt and received MACHADO to the LAD, radial to the ramus, saphenous to the PDA and to the PLV. He is sitting up in the chair, feeling well. His breathing is stable. He continued be in sinus mechanism. He denies any chest pain. He denies any dizziness or palpitation. Hemodynamically, he is stable. He continues to be at this time on amlodipine 5 mg daily, aspirin once a day, Lipitor 40 mg daily, Plavix 75 mg daily. PHYSICAL EXAMINATION: Blood pressure 116/60 with the heart rate in the 80s. LUNGS: Clear. HEART: Regular rate and rhythm. S1, S2. No S3. No rub or gallop appreciated. ABDOMEN: Soft, nontender. EXTREMITIES: No edema. LAB DATA: Lab data revealed BUN and creatinine 19 and 0.99, potassium 4.4. Hemoglobin of 10.1. Chest x-ray shows no acute infiltrate. IMPRESSION: 1. Status post coronary artery bypass grafting, stable. 2. Hyperlipidemia. 3. History of hypertension. RECOMMENDATION: From the cardiac standpoint, we will continue present therapy, increase his level of activity. We will continue on the calcium channel flako because of the use of the radial. Continue incentive spirometry. Depending on his progress, further recommendation will be made. MMODL / IJN: [id number] /
--- NOTE | 2018-10-31 08:35 | P.PN ---
Subjective Progress Note Date: 10/31/18 Principal diagnosis: postoperative day 4, status post four-vessel coronary artery bypass grafting Postoperative day #2, urgent quadruple coronary artery bypass grafting using MACHADO to LAD, left radial artery to occluded ramus intermedius reverse saphenous vein graft to posterior descending artery, then in an end to side fashion to the left ventricular branch of the right coronary artery. His postoperative course has been relatively uneventful, patient was extubated shortly after he was sent to the intensive care unit, patient continues to do well, no cough no wheezing no shortness of breath, has some vague chest wall pain, and occasional nausea. His chest x-ray was reviewed today, and it showed no significant interval change, bibasilar atelectasis and small effusions noted. And that is expected. Patient was reevaluated today on 10/30/2018, postoperative day #3. Patient is status post urgent quadruple coronary artery bypass grafting. He is now sitting in a bedside chair, asymptomatic, and doing extremely well with incentive spirometry just over . 1500 ml Denies shortness of breath cough wheezing or chest pain. He is hemodynamically stable, not requiring any inotropes or pressors. O2 saturation is 92% on 4 L. Already ambulating well in the hallway. Animal assistance is required. On 10/31/2018 patient seen in follow-up in intensive care unit, this is postoperative day 4, status post four-vessel coronary artery bypass grafting. Patient is up in the recliner, awake and alert, in no acute distress, he is on 2 L per nasal cannula, with O2 saturations at 92%, his incentive spirometry effort is 1500 mL. Lung sounds are clear, diminished at the bases, his pain is under good control, patient has been ambulating, tolerating activity well, today's [facility] x-ray has been reviewed with Dr. Mitchell, and shows small left pleural effusion with adjacent atelectasis, his labs 7 reviewed, white blood cell count 7.0, hemoglobin is 10.1, electrolytes and renal profile within normal limits. Objective - Vital Signs Vital signs: Vital Signs Temp 98.3 F 10/31/18 04:00 Pulse 85 10/31/18 04:00 Resp 16 10/31/18 04:00 BP 116/73 10/31/18 04:00 Pulse Ox 92 L 10/31/18 04:00 Intake & Output 10/30/18 10/31/18 10/31/18 18:59 06:59 18:59 Intake Total 20 Output Total 700 1250 Balance -680 -1250 Intake: IV 20 Lactated Ringers 1,000 ml 20 @ 20 mls/hr IV .Q24H [facility] Rx#:[id number] Output: Urine 700 1250 Other: Voiding Method Urinal Urinal ABP, PAP, CO, CI - Last Documented Arterial Blood Pressure 144/67 Pulmonary Artery Pressure 15/6 Cardiac Output 6.6 Cardiac Index 2.5 - Exam GENERAL EXAM: Alert, pleasant, 48-year-old white male 2 L of oxygen with a pulse ox of 92%, comfortable in no apparent distress. HEAD: Normocephalic/atraumatic. EYES: Normal reaction of pupils, equal size. Conjunctiva pink, sclera white. NOSE: Clear with pink turbinates. THROAT: No erythema or exudates. NECK: No masses, no JVD, no thyroid enlargement, no adenopathy. CHEST: No chest wall deformity. Symmetrical expansion. Midsternal chest incisions clean dry and intact LUNGS: Equal air entry with no crackles, wheeze, rhonchi or dullness. CVS: Regular rate and rhythm, normal S1 and S2, no gallops, no murmurs, no rubs ABDOMEN: Soft, nontender. No hepatosplenomegaly, normal bowel sounds, no guarding or rigidity. EXTREMITIES: No clubbing, no edema, no cyanosis, 2+ pulses and upper and lower extremities. MUSCULOSKELETAL: Muscle strength and tone normal. SPINE: No scoliosis or deformity SKIN: No rashes CENTRAL NERVOUS SYSTEM: Alert and oriented -3. No focal deficits, tone is normal in all 4 extremities. PSYCHIATRIC: Alert and oriented -3. Appropriate affect. Intact judgment and insight. - Labs CBC & Chem 7: 10/31/18 05:11 10/31/18 05:11 Labs: Abnormal Lab Results - Last 24 Hours (Table) 10/30/18 10/31/18 10/31/18 Range/Units 11:50 05:11 05:11 RBC 3.41 L (4.30-5.90) m/uL Hgb 10.1 L (13.0-17.5) gm/dL Hct 31.0 L (39.0-53.0) % POC Glucose (mg/dL) 103 H (75-99) mg/dL ALT 20 L (21-72) U/L Total Protein 5.8 L (6.3-8.2) g/dL Albumin 3.4 L (3.5-5.0) g/dL Assessment and Plan Plan: Assessment: #1. Severe symptomatic multivessel coronary artery disease, his post 4 vessel coronary artery bypass grafting postop day 4 #2. Exertional chest pain and shortness of breath due to the above #3. Hypertension #4. Dyslipidemia #5. Lifetime nonsmoker #6. Postoperative atelectasis, expected outcome after coronary artery bypass grafting surgery Plan: Continue current medical treatment, continue encouraging deep breathing and coughing, his chest x-ray has been reviewed with Dr. Ayoub, shows small left pleural effusion with adjacent atelectasis, clinically stable, encourage ambulation, maintain pain control, we'll continue to follow anticipate transfer to monitored bed on selective unit today. I performed a history & physical examination of the patient and discussed their management with my nurse practitioner, Sue Caceres. I reviewed the nurse practitioner's note and agree with the documented findings and plan of care. Lung sounds are clear. The findings and the impression was discussed with the patient. I attest to the documentation by the nurse practitioner. Time with Patient: Less than 30
[2018-10-31] MEDS: IPRATROPIUM-ALBUTEROL 3 ML NEB INHALATION SCH ×4 (08:44→20:06)
[2018-10-31] MEDS: PANTOPRAZOLE 40 MG TABLET PO SCH (08:47)
[2018-10-31] MEDS: HEPARIN SODIUM,PORCINE 5,000 UNIT/ML 1 ML VIAL SQ SCH ×3 (08:48→23:49)
[2018-10-31] MEDS: ATORVASTATIN 40 MG TAB PO SCH (08:55)
[2018-10-31] MEDS: CLOPIDOGREL 75 MG TAB PO SCH (08:55)
[2018-10-31] MEDS: ASPIRIN 325 MG TAB PO SCH (08:55)
[2018-10-31] MEDS: METOPROLOL TARTRATE 25 MG TAB PO SCH ×2 (08:56→21:20)
[2018-10-31] MEDS: amLODIPine 5 MG TAB PO SCH (08:56)
[2018-10-31] MEDS ORDERED: FUROSEMIDE 10 MG/ML 2 ML VIAL IV ONE (10:08)
--- NOTE | 2018-10-31 10:46 | P.PN ---
Subjective Progress Note Date: 10/31/18 Principal diagnosis: Unstable angina, severe triple vessel diffuse coronary artery disease, preserved left ventricular function, totally occluded circumflex system. History of hyp ertension, hyperlipidemia, and family history of hypertension. POD #4 urgent quadruple coronary artery bypass grafting using the left internal mammary artery to the left anterior descending artery as a patch angioplasty, left radial artery from the aorta to the totally occluded ramus intermedius ar princess, a reverse greater saphenous vein graft from the aorta sequentially in a [id number] fashion to the posterior descending artery, then in an end to side fashion to the left ventricular branch of the right coronary artery, endoscopic harvesting of the bilateral greater saphenous veins from the groin to below the knee level, endoscopic harvesting of the left radial artery, intraoperative transesophageal echocardiogram, epi-aortic scanning, and intraoperative graft flow measurements using the [email or web address] system The patient is currently sitting up to the bedside chair. He is in no acute distress. He is complaining of surgical type pain 3 out of 10 on the pain scale and denies shortness of breath. Bedside telemetry showing normal sinus rhythm heart rate 82. He remains hemodynamically stable and is currently on no inotropic or pressor support. He has been afebrile. Oxygen saturations are 92% on 2 L nasal cannula. He reports that he has been feeling episodes of anxiousness and called his early this morning to come and inset with him. His stated that he had walked in the intensive care unit hallway yesterday 3 times and tolerated the walks well. He continues to demonstrate good use on his incentive spirometry and achieving 2000 mL. Objective - Vital Signs Vital signs: Vital Signs Temp 98.2 F 10/31/18 08:00 Pulse 92 10/31/18 08:00 Resp 23 10/31/18 08:00 BP 116/73 10/31/18 08:00 Pulse Ox 89 L 10/31/18 08:00 Intake & Output 10/30/18 10/31/18 10/31/18 18:59 06:59 18:59 Intake Total 20 Output Total 700 1250 Balance -680 -1250 Intake: IV 20 Lactated Ringers 1,000 ml 20 @ 20 mls/hr IV .Q24H [facility] Rx#:[id number] Output: Urine 700 1250 Other: Voiding Method Urinal Urinal ABP, PAP, CO, CI - Last Documented Arterial Blood Pressure 144/67 Pulmonary Artery Pressure 15/6 Cardiac Output 6.6 Cardiac Index 2.5 - Constitutional General appearance: Present: cooperative, no acute distress, obese - Respiratory Details: Lung sounds essentially clear to his bilateral upper lobes, diminished to his bilateral bases. Respirations are symmetrical and nonlabored. Oxygen saturation are 92% on 2 L nasal cannula. Achieving 2000 ml on his incentive spirometry. - Cardiovascular Details: Regular rhythm and rate. S1 and S2 present, negative for S3, gallop or murmur. Sternum is stable. Bedside telemetry showing normal sinus rhythm heart rate 82. Atrial epicardial pacemaker wire in place and grounded. Heart hugger is in place and he is demonstrating appropriate use. Knee-high OBDULIA hose and sequential compression devices in place was bilateral lower extremities. No edema present. - Gastrointestinal Gastrointestinal Comment(s): Abdomen is soft, nontender and nondistended. Active bowel sounds all 4 abdominal quadrants. No guarding or rigidity. Tolerating oral intake. Passing flatus. - Genitourinary Genitourinary Comment(s): Voiding clear yellow urine. - Integumentary Integumentary Comment(s): Skin is warm and dry. No clubbing or cyanosis is present. Midline sternal incision is clean, dry and approximated. No redness or drainage is present. Bilateral lower extremity EVH site clean, dry and approximated. No drainage or redness is present. Left arm radial harvest sites is clean, dry and approximated. No drainage or redness is present. - Neurologic Neurologic: Present: CNII-XII intact - Musculoskeletal Musculoskeletal: Present: gait normal, generalized weakness, strength equal bilaterally - Psychiatric Psychiatric: Present: A&O x's 3, appropriate affect, intact judgment & insight - Allied health notes Allied health notes reviewed: nursing - Labs CBC & Chem 7: 10/31/18 05:11 10/31/18 05:11 Labs: Abnormal Lab Results - Last 24 Hours (Table) 10/30/18 10/31/18 10/31/18 Range/Units 11:50 05:11 05:11 RBC 3.41 L (4.30-5.90) m/uL Hgb 10.1 L (13.0-17.5) gm/dL Hct 31.0 L (39.0-53.0) % POC Glucose (mg/dL) 103 H (75-99) mg/dL ALT 20 L (21-72) U/L Total Protein 5.8 L (6.3-8.2) g/dL Albumin 3.4 L (3.5-5.0) g/dL - Imaging and Cardiology Chest x-ray: report reviewed, image reviewed Assessment and Plan Assessment: 1. Unstable angina 2. Severe triple-vessel diffuse coronary artery disease, totally occluded circumflex system, status post urgent CABG 3. Preserved left ventricular function 4. Global ST changes with rub, likely pericarditis 5. History of hypertension 6. Hyperlipidemia 7. Family history of hypertension 8. Never smoker with preoperative FEV1 102% of predicted Plan: 1. Continue aspirin, statin, Plavix and beta flako. Will increase beta flako as tolerated. 2. Continue Norvasc to 5 mg by mouth daily for radial artery spasm prophylaxis. Do not discontinued without clarifying with Dr. Brandt. 3. Wean O2 as tolerated. Encourage incentive spirometry use 10 times every hour while awake.. 4. Will monitor daily labs, x-rays. Electrolyte replacement per protocol. 5. Pain control with current medication regimen. 6. Insulin management per primary care service 7. Increase activity, ambulate as tolerated. PT/OT/cardiac rehab following. 8. Bronchodilators per pulmonology. 9. Lasix 20 mg IV 1 now. 10. GI/DVT prophylaxis. 11. Pull epicardial pacemaker wires. Bedrest for 1 hour post pacemaker wire removal. 12. Transfer orders placed yesterday 10/30/2018 for 3 S. cardiac stepdown unit. Transfer when bed is available. 13. Discharge planning in place. Anticipate discharge home within the next 24- 48 hours. 14. More recommendations to follow based on patient's clinical course. Epicardial pacemaker wires removed today at 10:25 AM without incident. He will be on bed rest for 1 hour post pacemaker wire removal. Time with Patient: Greater than 30
[2018-10-31 16:51] LABS: Glucose,Whole Blood 109 mg/dL (75-99)
--- NOTE | 2018-10-31 17:19 | PN ---
PROGRESS NOTE DATE OF SERVICE: 10/31/2018 This 48-year-old gentleman who was admitted after CAD, CABG is being closely monitored. The patient has improved significantly. No chest pain. No palpitations. No fever. On exam, alert and oriented x3. Pulse 78, blood pressure 119/74, respiration 22, temperature normal, pulse ox 94% on room air. HEENT: Conjunctivae normal. NECK: No jugular venous distention. CARDIOVASCULAR SYSTEM: S1, S2 muffled. RESPIRATORY SYSTEM: Breath sounds diminished at the bases. Scattered rhonchi. ABDOMEN: Soft. NERVOUS SYSTEM: No focal deficit. LABS: WBC 7, hemoglobin 10.1. ASSESSMENT: 1. Coronary artery disease, status post coronary artery bypass grafting. 2. Hyperlipidemia. 3. Acute postoperative blood-loss anemia, as expected from surgery. 4. Lactic acidosis, type 2. 5. Dyslipidemia. 6. Possible atelectasis. 7. Thrombocytopenia, mild; possibly dilutional. 8. Increased random blood sugar, possibly related to stress. 9. History of degenerative joint disease. RECOMMENDATIONS AND DISCUSSION: I recommend to continue current medications, continue with the monitoring, symptomatic treatment. Otherwise at this time we will monitor the patient closely. Incentive spirometry. DVT prophylaxis. Closely follow with Cardiothoracic Surgery. Further recommendations to follow. MMODL / IJN: [id number] /
--- NOTE | 2018-10-31 17:22 | PN ---
PROGRESS NOTE DATE OF SERVICE: 10/30/2018 This 48-year-old gentleman who was admitted after CAD, CABG, is improving significantly. No chest pain. No palpitations. No fever. On exam, alert and oriented x3. Pulse is 89, blood pressure 120/71, respiration 14, temperature 98.2, pulse ox 94% on room air. HEENT: Conjunctivae normal. NECK: No jugular venous distention. CARDIOVASCULAR SYSTEM: S1, S2 muffled. RESPIRATORY SYSTEM: Breath sounds diminished at the bases. Scattered rhonchi and crackles. ABDOMEN: Soft. NERVOUS SYSTEM: No focal deficit. LABS: WBC 7.2, hemoglobin 9.5. Sodium 135. Other labs are noted. ASSESSMENT: 1. Coronary artery disease, status post coronary artery bypass grafting. 2. Hyperlipidemia. 3. Acute postoperative blood loss anemia, as expected from surgery. 4. Lactic acidosis, type 2. 5. Dyslipidemia. 6. Possible atelectasis. 7. Thrombocytopenia, mild, possibly dilutional. 8. Increased random blood sugar. 9. History of degenerative joint disease. RECOMMENDATIONS AND DISCUSSION: I recommend to continue current medications, continue with the monitoring, symptomatic treatment. Incentive spirometry. Increase ambulation. DVT prophylaxis. Continue the rest of the medications. Further recommendations to follow. MMODL / IJN: [id number] /
[2018-10-31 20:53] LABS: Glucose,Whole Blood 96 mg/dL (75-99)
[2018-10-31] MEDS: SENNOSIDES-DOCUSATE SODIUM 1 EACH TAB PO SCH (21:20)
[2018-11-01] MEDS: PANTOPRAZOLE 40 MG TABLET PO SCH (06:12)
[2018-11-01 06:36] LABS: Glucose,Whole Blood 101 mg/dL (75-99)
[2018-11-01] MEDS: ATORVASTATIN 80 MG TAB PO SCH (07:02)
[2018-11-01] MEDS: ISOSORBIDE MONONITRATE ER 60 MG TAB.ER.24H PO SCH (07:03)
[2018-11-01] MEDS: MUPIROCIN 2% OINT 22 GM TUBE TOPICAL SCH (07:03)
--- NOTE | 2018-11-01 08:30 | XR ---
EXAMINATION TYPE: XR chest 2V DATE OF EXAM: 11/01/2018 COMPARISON: 10/31/2018 HISTORY: 48-year-old male postoperative CABG TECHNIQUE: PA and lateral views FINDINGS: Heart upper limits of normal in size. Median sternotomy wires and post-CABG clips in the mediastinum. There is focal retrocardiac opacity and underlying small effusion. Overall unchanged from prior. Upp er lungs remain clear. IMPRESSION: Persistent patchy retrocardiac atelectasis/infiltrate with small effusion.
[2018-11-01] MEDS: KETOROLAC 30 MG/ML 1 ML VIAL IVP SCH ×2 (08:40→11:44)
[2018-11-01 08:50] VITALS: RESP 18; TEMP 97.7
[2018-11-01] MEDS: ACETAMINOPHEN TAB 500 MG TAB PO PRN ×2 (08:50→15:03)
[2018-11-01] MEDS: HEPARIN SODIUM,PORCINE 5,000 UNIT/ML 1 ML VIAL SQ SCH (08:50)
[2018-11-01] MEDS: ASPIRIN 325 MG TAB PO SCH (08:50)
[2018-11-01] MEDS: ATORVASTATIN 40 MG TAB PO SCH (08:50)
[2018-11-01] MEDS: CLOPIDOGREL 75 MG TAB PO SCH (08:51)
[2018-11-01] MEDS: amLODIPine 5 MG TAB PO SCH (08:51)
[2018-11-01] MEDS: METOPROLOL TARTRATE 25 MG TAB PO SCH (08:51)
[2018-11-01] MEDS ORDERED: FUROSEMIDE 10 MG/ML 2 ML VIAL IV STA (09:18)
--- NOTE | 2018-11-01 09:22 | PN ---
PROGRESS NOTE Mr. Montoya is a 48-year-old male who underwent coronary artery bypass grafting. He is doing well this morning. He has some cough, nonproductive. He feels mildly dyspneic. He has no dizziness. No palpitation. He is ambulating without difficulty. He denies any nausea. He continues to be at this time on aspirin once a day, amlodipine 5 mg daily, Lipitor 40 mg daily, metoprolol tartrate 25 mg twice a day. PHYSICAL EXAMINATION: Blood pressure 130/70 with the heart rate in the 80s. LUNGS: Clear. HEART: Regular rate and rhythm. S1, S2. No S3. No rub appreciated. ABDOMEN: Soft, nontender. EXTREMITIES: No significant edema. He had a chest x-ray performed today that revealed small effusion. IMPRESSION: 1. Status post coronary artery bypass grafting, stable. 2. Hyperlipidemia. 3. History of hypertension. RECOMMENDATION: From the cardiac standpoint, he is stable. Will continue to increase his level of activity and I expect he should be able to be discharged home soon. MMGET / JUNG: [id number] /
[2018-11-01 09:30] LABS: HCT 34.9 % (39.0-53.0); HGB 11.4 gm/dL (13.0-17.5); MCH 29.1 pg (25.0-35.0); MCHC 32.7 g/dL (31.0-37.0); MCV 88.9 fL (80.0-100.0); Mean Platelet Volume 7.6; Platelet Count 334 k/uL (150-450); RBC 3.92 m/uL (4.30-5.90); RDW 15.2 % (11.5-15.5); WBC 9.6 k/uL (3.8-10.6)
[2018-11-01 09:50] LABS: Anion Gap 13 mmol/L; Blood Urea Nitrogen 20 mg/dL (9-20); Calcium 9.3 mg/dL (8.4-10.2); Carbon Dioxide 21 mmol/L (22-30); Chloride 104 mmol/L (98-107); Glucose 110 mg/dL (74-99); Potassium 4.8 mmol/L (3.5-5.1); Sodium 138 mmol/L (137-145)
[2018-11-01] MEDS: IPRATROPIUM-ALBUTEROL 3 ML NEB INHALATION SCH ×3 (10:02→15:45)
--- NOTE | 2018-11-01 10:28 | P.PN ---
Subjective Progress Note Date: 11/01/18 Principal diagnosis: postoperative day 4, status post four-vessel coronary artery bypass grafting Postoperative day #2, urgent quadruple coronary artery bypass grafting using MACHADO to LAD, left radial artery to occluded ramus intermedius reverse saphenous vein graft to posterior descending artery, then in an end to side fashion to the left ventricular branch of the right coronary artery. His postoperative course has been relatively uneventful, patient was extubated shortly after he was sent to the intensive care unit, patient continues to do well, no cough no wheezing no shortness of breath, has some vague chest wall pain, and occasional nausea. His chest x-ray was reviewed today, and it showed no significant interval change, bibasilar atelectasis and small effusions noted. And that is expected. Patient was reevaluated today on 10/30/2018, postoperative day #3. Patient is status post urgent quadruple coronary artery bypass grafting. He is now sitting in a bedside chair, asymptomatic, and doing extremely well with incentive spirometry just over . 1500 ml Denies shortness of breath cough wheezing or chest pain. He is hemodynamically stable, not requiring any inotropes or pressors. O2 saturation is 92% on 4 L. Already ambulating well in the hallway. Animal assistance is required. On 10/31/2018 patient seen in follow-up in intensive care unit, this is postoperative day 4, status post four-vessel coronary artery bypass grafting. Patient is up in the recliner, awake and alert, in no acute distress, he is on 2 L per nasal cannula, with O2 saturations at 92%, his incentive spirometry effort is 1500 mL. Lung sounds are clear, diminished at the bases, his pain is under good control, patient has been ambulating, tolerating activity well, today's [facility] x-ray has been reviewed with Dr. Mitchell, and shows small left pleural effusion with adjacent atelectasis, his labs 7 reviewed, white blood cell count 7.0, hemoglobin is 10.1, electrolytes and renal profile within normal limits. On 11/01/2018 patient seen in follow-up on selective care unit, he is awake and alert, in no acute distress, apparently last night he had some coughing episodes that were keeping him awake, denies being congested, his cough was dry, nonproductive. No fever or chills, today's lab work has been reviewed, white blood cell count is 9.6, hemoglobin is 7.4, electrolytes were normal with exception of CO2 which is a 21, renal profile is within normal limits, today's chest x-ray has been reviewed with Dr. Mitchell and showed patchy retrocardiac atelectasis, with small pleural effusion. He is working his incentive sprouted, he is tolerating ambulation, he is currently off the oxygen, he ambulated and his oxygen is in the range of 90-94. He is anticipated to go home today. Objective - Vital Signs Vital signs: Vital Signs Temp 97.7 F 11/01/18 08:48 Pulse 99 11/01/18 08:48 Resp 18 11/01/18 08:48 BP 118/73 11/01/18 08:48 Pulse Ox 92 L 11/01/18 08:48 Intake & Output 10/31/18 11/01/18 11/01/18 18:59 06:59 18:59 Intake Total 480 700 Output Total 2225 840 Balance -1745 -140 Weight 128.4 kg Intake: Oral 480 700 Output: Urine 2225 840 Other: Voiding Method Urinal Urinal # Voids 3 2 ABP, PAP, CO, CI - Last Documented Arterial Blood Pressure 144/67 Pulmonary Artery Pressure 15/6 Cardiac Output 6.6 Cardiac Index 2.5 - Exam GENERAL EXAM: Alert, pleasant, 48-year-old white male on room air, with pulse ox of 94% comfortable in no apparent distress. HEAD: Normocephalic/atraumatic. EYES: Normal reaction of pupils, equal size. Conjunctiva pink, sclera white. NOSE: Clear with pink turbinates. THROAT: No erythema or exudates. NECK: No masses, no JVD, no thyroid enlargement, no adenopathy. CHEST: No chest wall deformity. Symmetrical expansion. Midsternal chest incisions clean dry and intact LUNGS: Equal air entry with no crackles, wheeze, rhonchi or dullness. CVS: Regular rate and rhythm, normal S1 and S2, no gallops, no murmurs, no rubs ABDOMEN: Soft, nontender. No hepatosplenomegaly, normal bowel sounds, no guarding or rigidity. EXTREMITIES: No clubbing, no edema, no cyanosis, 2+ pulses and upper and lower extremities. MUSCULOSKELETAL: Muscle strength and tone normal. SPINE: No scoliosis or deformity SKIN: No rashes CENTRAL NERVOUS SYSTEM: Alert and oriented -3. No focal deficits, tone is normal in all 4 extremities. PSYCHIATRIC: Alert and oriented -3. Appropriate affect. Intact judgment and insight. - Labs CBC & Chem 7: 11/01/18 08:42 11/01/18 08:42 Labs: Abnormal Lab Results - Last 24 Hours (Table) 10/31/18 11/01/18 11/01/18 Range/Units 16:49 06:35 08:42 RBC 3.92 L (4.30-5.90) m/uL Hgb 11.4 L (13.0-17.5) gm/dL Hct 34.9 L (39.0-53.0) % Carbon Dioxide (22-30) mmol/L Glucose (74-99) mg/dL POC Glucose (mg/dL) 109 H 101 H (75-99) mg/dL 11/01/18 Range/Units 08:42 RBC (4.30-5.90) m/uL Hgb (13.0-17.5) gm/dL Hct (39.0-53.0) % Carbon Dioxide 21 L (22-30) mmol/L Glucose 110 H (74-99) mg/dL POC Glucose (mg/dL) (75-99) mg/dL Assessment and Plan Plan: Assessment: #1. Severe symptomatic multivessel coronary artery disease, his post 4 vessel coronary artery bypass grafting postop day 5 #2. Exertional chest pain and shortness of breath due to the above #3. Hypertension #4. Dyslipidemia #5. Lifetime nonsmoker #6. Postoperative atelectasis, expected outcome after coronary artery bypass grafting surgery Plan: His chest x-ray has been reviewed with Dr. Ayoub, showed some retrocardiac patchy atelectasis, small pleural effusion, patient otherwise is doing well, he is tolerating ambulation, has some limited cough, but no congestion, no wheezing, continue encouraging deep breathing and coughing, patient is antici pated for discharge today, from pulmonary perspective patient is stable, follow up with Dr. Laws in the office in 7-10 days. I performed a history & physical examination of the patient and discussed their management with my nurse practitioner, Sue Cacrees. I reviewed the nurse practitioner's note and agree with the documented findings and plan of care. Lung sounds are clear. The findings and the impression was discussed with the patient. I attest to the documentation by the nurse practitioner. Time with Patient: Less than 30
[2018-11-01 11:39] LABS: Glucose,Whole Blood 100 mg/dL (75-99)
--- NOTE | 2018-11-01 11:54 | P.DS ---
Providers Date of admission: 10/23/18 13:36 Expected date of discharge: 11/01/18 Attending physician: Germaine Brandt Consults: 10/21/18 12:37 Consult Physician Urgent Consulting Provider: Jefferson Loja Consult Reason/Comments: Exertional chest pain Do you want consulting provider notified?: Yes 10/23/18 09:47 Consult Physician Routine Consulting Provider: Germaine Brandt Consult Reason/Comments: Open heart Do you want consulting provider notified?: Yes 10/24/18 06:22 Consult Physician Routine Consulting Provider: Aishwarya Ramírez Consult Reason/Comments: pulm clearence cabg Do you want consulting provider notified?: Yes 10/25/18 10:40 Consult to Anesthesia Routine Consulting Provider: Anesthesia,Services Consult Reason/Comments: Cardiac Surgery Pre-Op 10/27/18 16:37 Consult Physician Routine Consulting Provider: Lefty Herring Consult Reason/Comments: med mgmt Do you want consulting provider notified?: Already Contacted Primary care physician: [facility] Course: FINAL DIAGNOSIS: 1. Severe triple-vessel diffuse coronary artery disease, totally occluded circumflex system, status post urgent CABG 2. Preserved left ventricular function 3. Unstable angina 4. Postoperative Global ST changes with rub, likely pericarditis 5. History of hypertension 6. Hyperlipidemia 7. Family history of hypertension 8. Never smoker with preoperative FEV1 102% of predicted PRINCIPAL PROCEDURE: 1. Selective right and left coronary angiogram performed by Dr. Loja. 2. Urgent quadruple coronary artery bypass grafting using the left internal mammary artery to the left anterior descending coronary artery as a patch angioplasty, left radial artery from the aorta to the totally occluded ramus intermedius coronary artery, a reverse greater saphenous vein graft from the aorta sequentially in a side to side fashion to the posterior descending coronary artery, then in an end-to-side fashion to the left ventricular branch of the right coronary artery. 3. Endoscopic harvesting of the bilateral greater saphenous vein from just below the knee to his bilateral thigh. 4. Endoscopic harvesting of the left radial artery. 5. Intraoperative transesophageal echocardiogram and epi-aortic scanning. 6. Intraoperative graft flow measurements using the [employer] system. HISTORY OF PRESENT ILLNESS: This is a 48-year-old gentleman who follows with Dr. Fernando Jade on an outpatient basis. He has a past medical history significant for hypertension, although he has been noncompliant with taking his blood pressure medication. Recently, he has been having exertional chest pain radiating to his left elbow which was relieved with rest and associated with some episodes of shortness of breath. The episodes of exertional chest pain and shortness of breath were becoming more frequent and occurring even at rest. Subsequently, due to his symptoms he sought medical attention at [facility] emergency department. A 12-lead EKG was completed which demonstrated no ischemic changes. He had negative troponins, although due to his presenting symptoms he was seen and evaluated by Dr. Jefferson Loja from cardiology associates. A cardiac catheterization was completed which demonstrated a 70-80% distal right coronary artery stenosis, a chronic totally occluded circumflex coronary artery, and 80-90% stenosis to his proximal left anterior descending coronary artery, a 30% mid left anterior descending coronary artery stenosis and a 50% stenosis to his diagonal coronary artery. For further evaluation a transthoracic echocardiogram was completed which showed him to have a normal left ventricular systolic function with an ejection fraction of 55-60%, mild mitral valve regurgitation and mild tricuspid valve regurgitation. Due to the patient's presenting symptoms, cardiac catheterization and a 2-D echocardiogram results a consult was placed to Dr. Germaine Brandt from cardiothoracic surgery. Dr. Brandt reviewed the cardiac catheterization findings with the patient and his , risks and benefits including the STS risk score were discussed with the patient in regards to my cardiovascular vascularization surgery and the patient wished to proceed with an urgent myocardial revascularization surgery. HOSPITAL COURSE: The patient was admitted to the hospital and after obtaining consent was taken to the operating room where Dr. Germaine Brandt performed an urgent quadruple coronary artery bypass grafting using the left internal mammary artery to the left anterior descending coronary artery as a patch angioplasty, left radial artery from the aorta to the totally occluded ramus intermedius coronary artery, a reverse greater saphenous vein graft from the aorta sequentially in a side to side fashion to the posterior descending coronary artery, then in an end-to-side fashion to the left ventricular branch of the right coronary artery, endoscopic vein harvesting of his bilateral greater saphenous vein from just below the knee to his bilateral thigh, endoscopic harvesting of the left radial artery, intraoperative transesophageal echocardiogram, epi-aortic scanning and intraoperative graft flow measurements using the [employer] system. Upon completion of the surgery the patient was transferred to the cardiovascular intensive care unit where he was recovered, monitored hemodynamically and where he progressed cardiac rehabilitation phase 1. He was extubated, all lines, tubes and supportive drips were discontinued when appropriate. He was subsequently transferred to 3 cardiac stepdown unit for further monitoring and rehabilitation. His oxygen was titrated down, he continued to work with physical and occupational therapy, he was tolerating a heart healthy diet, his pain was well-controlled and he was ready to be discharged home with [facility] on postoperative day #5. He has received written and verbal instructions regarding his medications, activity restrictions, signs and symptoms requiring physician notification and his follow-up appointments. COMPLICATIONS: There were no postoperative, complications. CONSULTATIONS: 1. Dr. Loja for cardiology management. 2. Dr. Herring for medical management. 3. Dr. Ramírez for pulmonary and mechanical ventilator management. DISCHARGE INSTRUCTIONS: 1. No driving for 4 weeks, or until physician gives their ok. 2. The patient should sleep in their own bed, no medical bed needed. 3. Stairs are not an issue. If the bedroom is upstairs, it is advised that the patient go up at night and down in the morning for the first week. Go slowly, using handrail and take 1 step at a time. 4. OBDULIA hose are to be worn for 30 days or until physician discontinues. 5. Heart hugger is to be worn 100% of the time until physician discontinues.(except when showering) 6. No lifting, pushing, or pulling more than 10 pounds for 12 weeks. The physician will advise of any restriction changes. 7. The patient is expected to continue the prescribed walking program. 8. Continue pain control per as needed orders. 9. Continue with incentive spirometry and splinting/heart hugger until otherwise directed by the physician. 10. Must shower daily using liquid antibacterial soap and a separate white washcloth for each individual incision. 11. Routine sternal incision care, no ointments, lotions or powders on the incisions. 12. Please notify surgeon/nurse practitioner for temperature greater than 101F or purulent drainage from incisions 13. Prescriptions for first 30 days given per cardiac surgery service. After 30 days, all prescription refills obtained through cardiology/primary care physician. 14. A red arm and has been placed on this patient it should be worn for 30 days post surgery and will be removed by the cardiothoracic surgeons. If an ER visit is necessary, please make sure the number on the red arm band is called. HOME HEALTH SERVICES TO PROVIDE: RN SKILLED HOME CARE SERVICES FOR POST-OP SURGICAL PATIENTS WITH THE FOLLOWING: Coronary Artery Bypass Surgery (CABG), Mitral Valve Replacement/Repair ( MVR), Aortic Valve Replacement/Repair (AVR) RN TO CONTINUE EDUCATION FROM ``ROAD TO A HEALTH HEART PATIENT EDUCATION MANUAL" (GIVEN TO PATIENT IN THE HOSPITAL) MEDICATION RECONCILIATION WITH EDUCATION NEEDED ON FIRST HOME VISIT EMPHASIZE IMPORTANCE OF WEARING BREAST SUPPORT/HEART HUGGER ENCOURAGE USE OF INCENTIVE SPIROMETER 10 X EVERY HOUR WHILE AWAKE ENCOURAGE UTILIZATION OF LOWER EXTREMITY COMPRESSION STOCKINGS/OBDULIA HOSE and ELEVATE LEGS ABOVE LEVEL OF HEART WHILE AT REST. ENCOURAGE AMBULATION 3-5x/day INCREASING TOLERATES, WHILE AVOID EXTREMES IN TEMPERATURE FREQUENCY: RN TO OPEN THE PATIENT WITHIN 24 HOURS OF DISCHARGE FROM THE HOSPITAL WITH TELEHEALTH INSTALLED AT [facility], RN TO VISIT 2-3 X A WEEK FOR 4 WEEKS ESTABLISHED BY PATIENT NEEDS. LABORATORY: CBC, CMP TO BE DRAWN ON THE THIRD DAY HOME, 11/04/2018 (RAN STAT) FAX RESULTS TO [phone]. TELEHEALTH PARAMETERS: WEIGHT: NOTIFY MD OF WEIGHT GAIN OF 2 LBS IN 24 HOURS OR 5 LBS IN ONE WEEK HR: NOTIFY MD OF HR <55 BPM OR HR>100 BPM BP: NOTIFY MD IF BP <90/55 OR BP>140/100 O2 SAT: NOTIFY MD IF PO2<93% ON ROOM AIR SEND TELEHEALTH REPORT TO CHILD DEVELOPMENT ASSOCIATE TEACHER AND CARDIOVASCULAR SURGEON THE FIRST WEEK OF CARE AND THEN BI-WEEKLY. PLEASE ADDITIONALLY COMMUNICATE ANY ABNORMALS AND NEW FINDINGS TO THE SURGEONS OFFICE. The patient will be discharged home on amlodipine 5 mg by mouth daily, please do not discontinue this medication without clarifying with Dr. Germaine Brandt from cardiothoracic surgery. This medication is in place for radial artery harvest and radial artery spasm prophylaxis. Patient Condition at Discharge: Stable Plan - Discharge Summary Discharge Rx Participant: Yes New Discharge Prescriptions: New Aspirin 325 mg PO DAILY #30 tab Furosemide [Lasix] 40 mg PO DAILY #4 tab Atorvastatin [Lipitor] 40 mg PO DAILY #30 tab Metoprolol Tartrate [Lopressor] 25 mg PO BID #60 tab amLODIPine [Norvasc] 5 mg PO DAILY #30 tab Clopidogrel [Plavix] 75 mg PO DAILY #30 tab Pantoprazole [Protonix] 40 mg PO AC-BRKFST #30 tablet. Sendanny-Docusate Sodium [Senokot-S] 2 each PO HS #14 tab Acetaminophen Tab [Tylenol] 1,000 mg PO Q6HR PRN #120 tab PRN Reason: Fever And/ Or Pain Discontinued Ibuprofen [Motrin] 800 mg PO DAILY PRN PRN Reason: Pain Discharge Medication List Acetaminophen Tab [Tylenol] 1,000 mg PO Q6HR PRN #120 tab 11/01/18 [Rx] Aspirin 325 mg PO DAILY #30 tab 11/01/18 [Rx] Atorvastatin [Lipitor] 40 mg PO DAILY #30 tab 11/01/18 [Rx] Clopidogrel [Plavix] 75 mg PO DAILY #30 tab 11/01/18 [Rx] Furosemide [Lasix] 40 mg PO DAILY #4 tab 11/01/18 [Rx] Metoprolol Tartrate [Lopressor] 25 mg PO BID #60 tab 11/01/18 [Rx] Pantoprazole [Protonix] 40 mg PO AC-BRKFST #30 tablet. 11/01/18 [Rx] Sennosides-Docusate Sodium [Senokot-S] 2 each PO HS #14 tab 11/01/18 [Rx] amLODIPine [Norvasc] 5 mg PO DAILY #30 tab 11/01/18 [Rx] Follow up Appointment(s)/Referral(s): Ce Hernandez NPC [Nurse Practitioner] - 11/07/18 1:30 pm Cooper Jade MD [STAFF PHYSICIAN] - 1 Week (No current office openings until November 02.) Jefferson Loja MD [STAFF PHYSICIAN] - 11/08/18 11:30 am ([facility]) Germaine Brandt MD [STAFF PHYSICIAN] - 12/02/18 10:00 am () Blayne Ayoub DO [Doctor of Osteopathic Medicine] - 11/22/18 2:45 pm (Pulmonary- with Angie Rubio NP.) [facility], [NON-STAFF] - 1-2 Days Ambulatory/Diagnostic Orders: Complete Blood Count w/diff [LAB.AMB] Time Frame: 11/04/18, Facility: [facility], Location: Laboratory [facility] Comprehensive Metabolic Panel [LAB.AMB] Time Frame: 11/04/18, Facility: [facility], Location: [facility] Patient Instructions/Handouts: Heart Healthy Diet (DC), Coronary Artery Bypass Graft (GEN) Discharge Disposition: HOME WITH HOME HEALTH SERVICES
[2018-11-01 12:51] VITALS: BP 137/79; PULSE 94
[2018-11-02] MEDS ORDERED: FUROSEMIDE 40 MG TAB PO SCH (09:00)
--- NOTE | 2018-11-02 23:59 | PN ---
PROGRESS NOTE DATE OF SERVICE: 11/01/2018 This 48-year-old gentleman with a past medical history of multiple medical problems was admitted after CAD, CABG. Patient is improving significantly. No chest pain. No palpitations. No fever. On exam, alert and oriented x3. The pulse is 99, blood pressure 118/73, respiration 18, temperature 97.7, pulse ox 92% on room air. HEENT: Conjunctivae normal. NECK: No jugular venous distention. CARDIOVASCULAR SYSTEM: S1, S2 muffled. RESPIRATORY SYSTEM: Breath sounds diminished at the bases. A few scattered rhonchi. ABDOMEN: Soft, non-tender. NERVOUS SYSTEM: No focal deficit. LABS: WBC 9.6, hemoglobin 11.4. ASSESSMENT: 1. Coronary artery disease, status post coronary artery bypass grafting. 2. Hyperlipidemia. 3. Acute postoperative blood loss anemia, as expected from surgery. 4. Lactic acidosis, type 2. 5. Dyslipidemia. 6. Possible atelectasis. 7. Thrombocytopenia, mild; possibly dilutional. 8. Increased random blood sugar. 9. History of degenerative joint disease. RECOMMENDATIONS AND DISCUSSION: I recommend to continue current medications, continue with the monitoring, symptomatic treatment. I would recommend continuing with home medications. Incentive spirometry. DVT prophylaxis. The rest of the recommendations per Cardiovascular Surgery. Follow up with primary physician closely. Further recommendations to follow. MMODL / IJN: [id number] /
== END 2018-11-01 15:52 | disposition home health service (06) | DRG 234 ==
LOC: EC 11:01 → 1SOBS 12:37 → 3SCARD 10-22 19:10 → OBSVTOIN 10-23 13:36 → 2SICU 10-27 05:44 → 3SCARD 10-31 12:01
PROVIDERS: ADMIT Hospitalist; ATTEND Surgery
PROC: 4A023N7 Measurement of Cardiac Sampling and Pressure, Left Heart, Percutaneous Approach (ICD-10-PCS; 2018-10-22)
PROC: B2111ZZ Fluoroscopy of Multiple Coronary Arteries using Low Osmolar Contrast (ICD-10-PCS; 2018-10-22)
PROC: B54DZZZ Ultrasonography of Bilateral Lower Extremity Veins (ICD-10-PCS; 2018-10-26)
PROC: 02100Z9 Bypass Coronary Artery, One Artery from Left Internal Mammary, Open Approach (ICD-10-PCS; 2018-10-27)
PROC: 06BQ4ZZ Excision of Left Saphenous Vein, Percutaneous Endoscopic Approach (ICD-10-PCS; 2018-10-27)
PROC: 06BP4ZZ Excision of Right Saphenous Vein, Percutaneous Endoscopic Approach (ICD-10-PCS; 2018-10-27)
PROC: 03BC4ZZ Excision of Left Radial Artery, Percutaneous Endoscopic Approach (ICD-10-PCS; 2018-10-27)
PROC: B24BZZ4 Ultrasonography of Heart with Aorta, Transesophageal (ICD-10-PCS; 2018-10-27)
PROC: 4A033BC Measurement of Arterial Pressure, Coronary, Percutaneous Approach (ICD-10-PCS; 2018-10-27)
PROC: 30233N0 Transfusion of Autologous Red Blood Cells into Peripheral Vein, Percutaneous Approach (ICD-10-PCS; 2018-10-27)
PROC: 02100AW Bypass Coronary Artery, One Artery from Aorta with Autologous Arterial Tissue, Open Approach (ICD-10-PCS; principal; 2018-10-27 07:45)
PROC: 021109W Bypass Coronary Artery, Two Arteries from Aorta with Autologous Venous Tissue, Open Approach (ICD-10-PCS; 2018-10-27 07:45)
DX: I25.110 Atherosclerotic heart disease of native coronary artery with unstable angina pectoris (principal); D62 Acute posthemorrhagic anemia; E87.2 Acidosis; I31.9 Disease of pericardium, unspecified; J98.11 Atelectasis; D69.6 Thrombocytopenia, unspecified; I25.82 Chronic total occlusion of coronary artery; E88.09 Other disorders of plasma-protein metabolism, not elsewhere classified; E66.9 Obesity, unspecified; R73.9 Hyperglycemia, unspecified; E78.5 Hyperlipidemia, unspecified; T46.5X6A Underdosing of other antihypertensive drugs, initial encounter; I10 Essential (primary) hypertension; K21.9 Gastro-esophageal reflux disease without esophagitis; M19.90 Unspecified osteoarthritis, unspecified site; Z68.35 Body mass index [BMI] 35.0-35.9, adult; Z82.49 Family history of ischemic heart disease and other diseases of the circulatory system; Z80.9 Family history of malignant neoplasm, unspecified
CPT/HCPCS: 36415; 71045; 71046; 80048; 80053; 80061; 80074; 81003; 82330; 82805; 83036; 83735; 84443; 84484; 85025; 85027; 85049; 85379; 85520; 85610; 85730; 86850; 86891; 86900; 86901; 86920; 87070; 87086; 93005; 93306; 93458; 93880; 93923; 93930; 93970; 94150; 94640; 96361; 96365; 96366; 96376; 99285

== ENCOUNTER 2019-07-07 06:01 | Inpatient (IN) | payer BC, OTHER ==
--- NOTE | 2019-07-07 06:20 | ED ---
Chest Pain HPI - General Chief Complaint: Chest Pain Stated Complaint: Chest Pain Time Seen by Provider: 07/07/19 06:10 Source: patient Mode of arrival: ambulatory Limitations: no limitations - History of Present Illness MD Complaint: chest pain Onset/Timin -: minutes(s) Onset: during rest, awoke with symptoms Pain Location: left chest Pain Radiation: none Severity: severe Severity scale (1-10): 8 Quality: aching, dull Consistency: constant Improves With: nothing Worsens With: nothing Anginal Symptoms: nausea Treatments Prior to Arrival: none - Related Data Previous Rx's Medication Instructions Recorded Acetaminophen Tab [Tylenol] 1,000 mg PO Q6HR PRN #120 tab 11/01/18 Aspirin 325 mg PO DAILY #30 tab 11/01/18 Atorvastatin [Lipitor] 40 mg PO DAILY #30 tab 11/01/18 Clopidogrel [Plavix] 75 mg PO DAILY #30 tab 11/01/18 Furosemide [Lasix] 40 mg PO DAILY #4 tab 11/01/18 Metoprolol Tartrate [Lopressor] 25 mg PO BID #60 tab 11/01/18 Pantoprazole [Protonix] 40 mg PO AC-BRKFST #30 tablet. 11/01/18 Sennosides-Docusate Sodium 2 each PO HS #14 tab 11/01/18 [Senokot-S] amLODIPine [Norvasc] 5 mg PO DAILY #30 tab 11/01/18 Allergies Allergy/AdvReac Type Severity Reaction Status Date / Time No Known Allergies Allergy Verified 07/07/19 06:06 Review of Systems ROS Statement: Those systems with pertinent positive or pertinent negative responses have been documented in the HPI. ROS Other: All systems not noted in ROS Statement are negative. Constitutional: Denies: fever, chills Respiratory: Denies: cough, dyspnea Cardiovascular: Reports: as per HPI, chest pain. Denies: palpitations, orthopnea, edema, syncope Gastrointestinal: Reports: nausea. Denies: abdominal pain, vomiting, diarrhea Genitourinary: Denies: dysuria, hematuria Musculoskeletal: Denies: back pain Skin: Denies: rash Neurological: Denies: headache, weakness EKG Findings - EKG Results: EKG: interpreted by ERMD, sinus rhythm, normal axis, normal QRS, normal ST/T EKG shows: bradycardia (Rate 49 bpm) Past Medical History Past Medical History: Chest Pain / Angina, Hyperlipidemia, Hypertension Additional Past Medical History / Comment(s): quad bypass History of Any Multi-Drug Resistant Organisms: None Reported Past Surgical History: Hernia Repair, Orthopedic Surgery, Tonsillectomy Additional Past Surgical History / Comment(s): left knee scope Past Anesthesia/Blood Transfusion Reactions: No Reported Reaction Past Psychological History: No Psychological Hx Reported Smoking Status: Never smoker Past Alcohol Use History: None Reported Past Drug Use History: None Reported - Past Family History Father Family Medical History: Hypertension Mother Family Medical History: Cancer, Hypertension General Exam Limitations: no limitations General appearance: alert, in no apparent distress Head exam: Present: atraumatic, normocephalic Eye exam: Present: normal appearance. Absent: scleral icterus, conjunctival injection ENT exam: Present: normal oropharynx Neck exam: Present: normal inspection Respiratory exam: Present: normal lung sounds bilaterally. Absent: respiratory distress, wheezes, rales, rhonchi, stridor Cardiovascular Exam: Present: normal rhythm, bradycardia (Rate proximally 52 of my exam), normal heart sounds. Absent: systolic murmur, diastolic murmur, rubs, gallop GI/Abdominal exam: Present: soft. Absent: distended, tenderness, guarding, rebound, rigid, mass Extremities exam: Present: normal inspection, normal capillary refill. Absent: pedal edema, calf tenderness Back exam: Present: normal inspection. Absent: CVA tenderness (R), CVA tenderness (L) Neurological exam: Present: alert Skin exam: Present: warm, dry, intact, normal color. Absent: rash Course Vital Signs 07/07/19 07/07/19 06:04 06:06 Temperature 97.3 F L Pulse Rate 52 L 51 L Respiratory 18 20 Rate Blood Pressure 184/98 141/96 O2 Sat by Pulse 97 98 Oximetry Critical Care Time Critical Care Time: Yes (30 minutes) Disposition Clinical Impression: Chest pain Disposition: ADMITTED IP TO THIS HOSP Condition: Good Instructions (If sedation given, give patient instructions): Chest Pain (ED) Is patient prescribed a controlled substance at d/c from ED?: No Referrals: Cooper Jade MD [Primary Care Provider] - 1-2 days
--- NOTE | 2019-07-07 06:31 | XR ---
EXAMINATION TYPE: XR chest 1V portable DATE OF EXAM: 07/07/2019 COMPARISON: 11/22/2018 HISTORY: Heart surgery TECHNIQUE: FINDINGS: There is no heart failure nor confluent pneumonic infiltrate. There are sternal wires. Cost ophrenic angles are clear. Bony thorax is intact. IMPRESSION: No active cardiopulmonary disease. There is clearing of left pleural small effusion phyllis red to old exam.
[2019-07-07 06:35] LABS: Basophils # (A) 0.1 k/uL (0-0.2); Basophils % (A) 1 %; Eosinophils # (A) 0.2 k/uL (0-0.7); Eosinophils % (A) 2 %; HCT 50.8 % (39.0-53.0); Lymphocytes # (A) 2.4 k/uL (1.0-4.8); Lymphocytes % (A) 30 %; MCH 29.4 pg (25.0-35.0); MCHC 33.5 g/dL (31.0-37.0); MCV 87.8 fL (80.0-100.0); Mean Platelet Volume 7.7; Monocytes # (A) 0.3 k/uL (0-1.0); Monocytes % (A) 4 %; Neutrophils % (A) 62 %; Platelet Count 219 k/uL (150-450); RBC 5.78 m/uL (4.30-5.90); RDW 13.5 % (11.5-15.5); WBC 8.1 k/uL (3.8-10.6)
[2019-07-07 06:43] LABS: INR 0.9 (<1.2); Partial Thromboplastin Time 23.3 sec (22.0-30.0); Prothrombin Time 9.7 sec (9.0-12.0)
[2019-07-07 06:48] LABS: Albumin 4.4 g/dL (3.5-5.0); Calcium 9.3 mg/dL (8.4-10.2); Potassium 4.6 mmol/L (3.5-5.1); Total Protein 7.6 g/dL (6.3-8.2)
[2019-07-07] MEDS ORDERED: amLODIPine 5 MG TAB PO STA (07:17)
[2019-07-07] MEDS ORDERED: METOPROLOL TARTRATE 25 MG TAB PO STA (07:17)
[2019-07-07] MEDS ORDERED: NITROGLYCERIN SL TABS 0.4 MG TAB SUBLINGUAL PRN (07:18)
[2019-07-07] MEDS ORDERED: SODIUM CHLORIDE 0.9% 1,000 ML IV SCH (07:30)
[2019-07-07] MEDS ORDERED: ONDANSETRON 4 MG/2 ML VIAL IVP STA (08:20)
[2019-07-07] MEDS: SODIUM CHLORIDE 0.9% 1,000 ML IV SCH ×2 (08:39→20:29)
[2019-07-07] MEDS ORDERED: CLOPIDOGREL 75 MG TAB PO SCH ×2 (09:00)
[2019-07-07] MEDS ORDERED: ASPIRIN 325 MG TAB PO SCH (09:00)
[2019-07-07] MEDS: ACETAMINOPHEN TAB 500 MG TAB PO PRN (09:27)
--- NOTE | 2019-07-07 10:14 | CT ---
CT CHEST FOR PULMONARY EMBOLISM. EXAMINATION TYPE: CT angio chest DATE OF EXAM: 07/07/2019 INDICATION: Left sided chest and Shoulder pain. CT DLP: 568.4 mGycm, Automated exposure control for dose reduction was used. CONTRAST: Patient injected with 100 mL of Isovue 370. COMPARISON: None TECHNIQUE: CT of the chest is performed on a spiral scan at 2 mm thick sections. Study is performed with intravenous contrast timed for evaluation for pulmonary embolism. This will limit additional po rtions of the evaluation. 3-D MIP images reconstructed by the technologist are reviewed on the compu ter in the coronal and sagittal planes. FINDINGS: No persistent filling defects are evident to suggest an acute pulmonary embolism. No mediastinal or hilar adenopathy enlarged by CT criteria is evident. The ascending aorta diameter at the level of the main pulmonary artery is 3.9 cm. The main pulmonary artery diameter at the bifur cation is 2.9 cm. Lung windows are clear. Limited CT section through the upper abdomen. Some mild inflammatory changes adjacent to the pancreas is not excluded. Correlate for mild pancreatitis. IMPRESSIONS: 1. No acute pulmonary embolism. 2. Suspicion of mild pancreatitis. Clinical correlation recommended.
[2019-07-07 10:50] LABS: Amylase 927 U/L (30-110)
[2019-07-07] MEDS ORDERED: SODIUM CHLORIDE 0.9% 1,000 ML IV ONE (10:56)
--- NOTE | 2019-07-07 11:00 | P.CRDCN ---
History of Present Illness History of present illness: HISTORY OF PRESENTING ILLNESS This is a pleasant 49-year-old male past medical history significant for coronary artery disease s/p bypass grafting with MACHADO-LAD, LRA-ramus, reverse SVG-PDA , hypertension, dyslipidemia and basal cell skin cancer. He follows in the office with Dr. Loja. We have been asked to see in consultation for chest pain. He states he woke up this morning at 0430 with a pain in the chest described as a heaviness with radiation to the left scapular region and down the left arm. He took tylenol at home without much relief. The pain in the chest did subside but he continues to have discomfort in the left scapular region and back. Upon entering his room he started feeling intense abdominal pain, nausea and became acutely diaphoretic. The pain was radiating from his left upper back through to the epigastric region. He felt light headed and stated "I am going to pass out." STAT repeat EKG, echo, CT of the chest and vital signs obtained. No changes on EKG, continuous telemetry monitoring unremarkable, blood pressure 156/78. DIAGNOSTICS EKG reveals sinus bradycardia with heart rate of 49. Chest xray negative for an acute process. Laboratory reviewed, CBC unremarkable, sodium 144, potassium 4.6, creatinine 1.11, troponin negative x1. Current cardiac medications include aspirin 325 mg daily, atorvastatin 40 mg daily, plavix 75 mg daily, lopressor 25 mg BID and amlodipine 5 mg daily. Most recent echocardiogram obtained reveals preserved LV systolic function with EF 55-60%. REVIEW OF SYSTEMS At the time of my exam: CONSTITUTIONAL: Denies fever or chills. CARDIOVASCULAR: Denies chest pain, shortness of breath, orthopnea, PND or palpitations. RESPIRATORY: Denies cough. GASTROINTESTINAL: Denies abdominal pain, diarrhea, constipation, nausea or vomiting. MUSCULOSKELETAL: Denies myalgias. NEUROLOGIC: Denies numbness, tingling or weakness. ENDOCRINE: Denies fatigue, weight change, polydipsia or polyurina. GENITOURINARY: Denies burning, hematuria or urgency with micturation. HEMATOLOGIC: Denies history of anemia or bleeding. PHYSICAL EXAMINATION Blood pressure 154/82 heart rate 52 afebrile and maintaining oxygen saturation on room air. CONSTITUTIONAL: Mild distress and acutely diaphoretic. HEENT: Head is normocephalic. Pupils are equal, round. Sclerae anicteric. Mucous membranes of the mouth are moist. No JVD. No carotid bruit. CHEST EXAMINATION: Lungs are clear to auscultation. No chest wall tenderness is noted on palpation or with deep breathing. HEART EXAMINATION: Regular rate and rhythm. S1, S2 heard. No murmurs, gallops or rub. ABDOMEN: Soft, mildly tender in epigastric region. Positive bowel sounds. EXTREMITIES: 2+ peripheral pulses, no lower extremity edema and no calf tenderness. NEUROLOGIC EXAMINATION: Patient is awake, alert and oriented x3. ASSESSMENT Chest pain, atypical for angina. No EKG changes, initial troponin negative. Abdominal pain with nausea Coronary artery disease s/p bypass grafting Hypertension Dyslipidemia History of basal cell skin cancer PLAN Obtain stat CT angio chest to assess aorta. Obtain 2D echocardiogram and doppler study to assess cardiac structure and function. Repeat EKG unremarkable with no acute changes, ongoing sinus bradycardia. Obtain ultrasound of the gallbladder. Check amylase and lipase. Decrease aspirin to 81 mg daily. Symptoms atypical for angina, more complaints of abdominal pain to be managed by primary care team. Thank you kindly for this consultation. Nurse Practitioner note has been reviewed, I agree with a documented findings and plan of care. Patient was seen and examined. Past Medical History Past Medical History: Chest Pain / Angina, Hyperlipidemia, Hypertension Additional Past Medical History / Comment(s): quad bypass History of Any Multi-Drug Resistant Organisms: None Reported Past Surgical History: Hernia Repair, Orthopedic Surgery, Tonsillectomy Additional Past Surgical History / Comment(s): left knee scope Past Anesthesia/Blood Transfusion Reactions: No Reported Reaction Past Psychological History: No Psychological Hx Reported Smoking Status: Never smoker Past Alcohol Use History: None Reported Past Drug Use History: None Reported - Past Family History Father Family Medical History: Hypertension Mother Family Medical History: Cancer, Hypertension Medications and Allergies Home Medications Medication Instructions Recorded Confirmed Type Acetaminophen Tab [Tylenol] 1,000 mg PO Q6HR PRN #120 tab 11/01/18 07/07/19 Rx Aspirin 325 mg PO DAILY #30 tab 11/01/18 07/07/19 Rx Atorvastatin [Lipitor] 40 mg PO DAILY #30 tab 11/01/18 07/07/19 Rx Clopidogrel [Plavix] 75 mg PO DAILY #30 tab 11/01/18 07/07/19 Rx Metoprolol Tartrate [Lopressor] 25 mg PO BID #60 tab 11/01/18 07/07/19 Rx amLODIPine [Norvasc] 5 mg PO DAILY #30 tab 11/01/18 07/07/19 Rx Allergies Allergy/AdvReac Type Severity Reaction Status Date / Time No Known Allergies Allergy Verified 07/07/19 07:45 Physical Exam Vitals: Vital Signs Temp Pulse Pulse Resp BP BP Pulse Ox 07/07/19 08:17 52 L 18 170/108 97 07/07/19 07:48 60 18 154/82 99 07/07/19 06:06 51 L 20 141/96 98 07/07/19 06:04 97.3 F L 52 L 18 184/98 97 Intake and Output 07/06/19 07/07/19 07/07/19 22:59 06:59 14:59 Other: Weight 127.006 kg Results 07/07/19 06:22 07/07/19 06:22 Cardiac Enzymes 07/07/19 07/07/19 Range/Units 06:22 06:22 AST 33 (17-59) U/L Troponin I <0.012 (0.000-0.034) ng/mL Coagulation 07/07/19 Range/Units 06:22 PT 9.7 (9.0-12.0) sec APTT 23.3 (22.0-30.0) sec CBC 07/07/19 Range/Units 06:22 WBC 8.1 (3.8-10.6) k/uL RBC 5.78 (4.30-5.90) m/uL Hgb 17.0 (13.0-17.5) gm/dL Hct 50.8 (39.0-53.0) % Plt Count 219 (150-450) k/uL Comprehensive Metabolic Panel 07/07/19 Range/Units 06:22 Sodium 144 (137-145) mmol/L Potassium 4.6 (3.5-5.1) mmol/L Chloride 108 H (98-107) mmol/L Carbon Dioxide 26 (22-30) mmol/L BUN 15 (9-20) mg/dL Creatinine 1.11 (0.66-1.25) mg/dL Glucose 103 H (74-99) mg/dL Calcium 9.3 (8.4-10.2) mg/dL AST 33 (17-59) U/L ALT 20 (4-49) U/L Alkaline Phosphatase 118 (38-126) U/L Total Protein 7.6 (6.3-8.2) g/dL Albumin 4.4 (3.5-5.0) g/dL Current Medications Generic Name Dose Route Start Last Admin Trade Name Freq PRN Reason Stop Dose Admin Acetaminophen 1,000 mg 07/07/19 07:20 Tylenol Tab PO Q6HR PRN Fever and/ or Pain Amlodipine Besylate 5 mg 07/07/19 09:00 Norvasc PO DAILY [facility] Aspirin 325 mg 07/07/19 09:00 Aspirin PO DAILY [facility] Atorvastatin Calcium 40 mg 07/07/19 09:00 Lipitor PO DAILY [facility] Clopidogrel Bisulfate 75 mg 07/07/19 09:00 Plavix PO DAILY [facility] Sodium Chloride 1,000 mls @ 75 mls/hr 07/07/19 08:30 Saline 0.9% IV .[id number] [facility] Metoprolol Tartrate 25 mg 07/07/19 09:00 Lopressor PO BID [facility] Nitroglycerin 0.4 mg 07/07/19 07:18 Nitrostat SUBLINGUAL Q5M PRN Chest Pain Pantoprazole Sodium 40 mg 07/07/19 07:30 Protonix PO AC-BRKFST PAULA Senna/Docusate Sodium 2 each 07/07/19 21:00 Senokot-S PO HS [facility] Intake and Output 07/06/19 07/07/19 07/07/19 22:59 06:59 14:59 Other: Weight 127.006 kg 07/07/19 06:22 07/07/19 06:22
[2019-07-07] MEDS: METOPROLOL TARTRATE 25 MG TAB PO SCH ×2 (11:08→20:30)
[2019-07-07] MEDS: KETOROLAC 30 MG/ML 1 ML VIAL IVP SCH ×3 (11:10→23:05)
[2019-07-07] MEDS: amLODIPine 5 MG TAB PO SCH (11:12)
[2019-07-07] MEDS: ATORVASTATIN 40 MG TAB PO SCH (11:12)
[2019-07-07] MEDS: PANTOPRAZOLE 40 MG TABLET PO SCH (11:13)
--- NOTE | 2019-07-07 11:30 | ECHOF ---
Referral Reason:cp, sob MEASUREMENTS -------- HEIGHT: 188.0 cm WEIGHT: 127.0 kg BP: 170/108 RVIDd: 2.9 cm (< 3.3) IVSd: 1.3 cm (0.6 - 1.1) LVIDd: 5.3 cm (3.9 - 5.3) LVPWd: 1.5 cm (0.6 - 1.1) IVSs: 1.8 cm LVIDs: 4.3 cm LVPWs: 1.9 cm LAESV Index (A-L): 22.40 ml/m Ao Diam: 3.4 cm (2.0 - 3.7) AV Cusp: 1.6 cm (1.5 - 2.6) LA Diam: 4.2 cm (2.7 - 3.8) MV EXCURSION: 20.477 mm (> 18.000) MV EF SLOPE: 103 mm/s (70 - 150) EPSS: 0.9 cm MV E Darius: 0.52 m/s MV DecT: 198 ms MV A Darius: 0.51 m/s MV E/A Ratio: 1.03 RAP: 5.00 mmHg RVSP: 21.70 mmHg FINDINGS -------- Sinus rhythm. This was a technically difficult study with suboptimal views. The left ventricular size is normal. There is mild concentric left ventricular hypertrophy. Overa ll left ventricular systolic function is mildly impaired with, an EF between 45 - 50 %. There is pa radoxical/dysynergic septal motion consistent with post-operative status. The diastolic filling pat tern is normal for the age of the patient 9.69. The right ventricle is normal in size. The left atrial size is normal. Normal LA size by volume 22+/-6 ml/m2. The right atrial size is normal. Lumason used The aortic valve is trileaflet and appears structurally normal. The mitral valve is normal. There is trace mitral regurgitation. The tricuspid valve appears structurally normal. Trace tricuspid regurgitation present. Right ros tricular systolic pressure is normal at < 35 mmHg. There is no pulmonic regurgitation present. The aortic root size is normal. Normal inferior vena cava with normal inspiratory collapse consistent with estimated right atrial pre ssure of 5 mmHg. There is no pericardial effusion. CONCLUSIONS -------- 1. Sinus rhythm. 2. This was a technically difficult study with suboptimal views. 3. The left ventricular size is normal. 4. There is mild concentric left ventricular hypertrophy. 5. Overall left ventricular systolic function is mildly impaired with, an EF between 45 - 50 %. 6. There is paradoxical/dysynergic septal motion consistent with post-operative status. 7. The diastolic filling pattern is normal for the age of the patient 9.69 8. The right ventricle is normal in size. 9. The left atrial size is normal. 10. Normal LA size by volume 22+/-6 ml/m2. 11. The right atrial size is normal. 12. Lumason used 13. The aortic valve is trileaflet and appears structurally normal. 14. The mitral valve is normal. 15. There is trace mitral regurgitation. 16. The tricuspid valve appears structurally normal. 17. Trace tricuspid regurgitation present. 18. Right ventricular systolic pressure is normal at < 35 mmHg. 19. There is no pulmonic regurgitation present. 20. The aortic root size is normal. 21. Normal inferior vena cava with normal inspiratory collapse consistent with estimated right atrial pressure of 5 mmHg. 22. There is no pericardial effusion. GENERAL CARGO CLERK: Ce Jordan RDCS
--- NOTE | 2019-07-07 11:35 | US ---
EXAMINATION TYPE: US gallbladder DATE OF EXAM: 07/07/2019 COMPARISON: NONE CLINICAL HISTORY: abd pain nausea. Epigastric pain, nausea EXAM MEASUREMENTS: Liver Length: 17.3 cm Gallbladder Wall: 0.5 cm CBD: 0.5 cm Right Kidney: 12.7 x 6.1 x 5.1 cm Technical limitations due to large amount of overlying bowel content Pancreas: Obscured by bowel gas Liver: only seen intercostally, visualized portions appear wnl Gallbladder: hydropic = 11.4cm, thickened GB wall Evidence for sonographic Meyers's sign: no CBD: limited evaluation Right Kidney: no evidence of hydronephrosis IMPRESSION: 1. Hydropic size of the gallbladder measuring 11.4 cm with mild gallbladder wall thickening. However the common bile duct is within normal limits. Findings may be on the basis of chronic cholecystitis a nd HIDA scan is recommended for further evaluation. 2. Pancreas is obscured by bowel gas and there is limited evaluation of the liver 2 suboptimal visual ization.
--- NOTE | 2019-07-07 13:54 | P.GSCN ---
History of Present Illness Consult date: 07/07/19 Reason for Consult: abdominal pain Requesting physician: Luis Barnard History of present illness: CHIEF COMPLAINT: abdominal pain HISTORY OF PRESENT ILLNESS: 49 year old male who presented to the ER with a chief complaint of chest pain. The patient was evaluated by cardiology who ordered an abdominal ultrasound which revealed hydropic size of the gallbladder measuring 11.4 cm with mild gallbladder wall thickening. Common bile duct is within normal limits. Findings may be on the basis of chronic cholecystitis. General surgery was consulted for further evaluation. Patient was examined at the bedside with Dr. Reagan. Patient reports his abdominal pain is tolerable at the time of examination. He currently denies nausea or vomiting. Denies diarrhea or constipation. WBC 8.1. Bilirubin 1.0. AST 33. ALT 20. Amylase 927. Lipase 14,840. PAST MEDICAL HISTORY: See list. PAST SURGICAL HISTORY: See list. SOCIAL HISTORY: No illicit drug use. REVIEW OF SYSTEMS: CONSTITUTIONAL: Denies fever or chills. HEENT: Denies blurred vision, vision changes, or eye pain. Denies hemoptysis CARDIOVASCULAR: Reports chest pain RESPIRATORY: No shortness of breath. GASTROINTESTINAL: Refer to HPI for pertinent findings HEMATOLOGIC: Denies bleeding disorders. GENITOURINARY: Denies any blood in urine. SKIN: Denies pruitis. Denies rash. PHYSICAL EXAM: VITAL SIGNS: Reviewed. GENERAL: Well-developed in no acute distress. HEENT: No sclera icterus. Extraocular movements grossly intact. Moist buccal mucosa. Head is atraumatic, normocephalic. ABDOMEN: Soft. Nondistended. Tenderness to epigastric region and right upper quadrant NEUROLOGIC: Alert and oriented. Cranial nerves II through XII grossly intact. ASSESSMENT: 1. Acute pancreatitis 2. Chronic cholecystitis PLAN: 1L NS bolus Increase IV fluids to 150cc/hr Patient currently ordered heart healthy diet. Downgrade to clear liquids only Monitor labs Patient will be tentatively scheduled for laparoscopic cholecystectomy on Wednesday with Dr. Reagan Nurse practitioner note has been reviewed by physician. Signing provider agrees with the documented findings, assessment, and plan of care. Past Medical History Past Medical History: Chest Pain / Angina, Hyperlipidemia, Hypertension Additional Past Medical History / Comment(s): quad bypass History of Any Multi-Drug Resistant Organisms: None Reported Past Surgical History: Hernia Repair, Orthopedic Surgery, Tonsillectomy Additional Past Surgical History / Comment(s): left knee scope Past Anesthesia/Blood Transfusion Reactions: No Reported Reaction Past Psychological History: No Psychological Hx Reported Smoking Status: Never smoker Past Alcohol Use History: None Reported Past Drug Use History: None Reported - Past Family History Father Family Medical History: Hypertension Additional Family Medical History / Comment(s): Father is still living. Mother Family Medical History: Cancer, Hypertension Additional Family Medical History / Comment(s): Breast cancer with mets- of at the age of 53yrs. Medications and Allergies Home Medications Medication Instructions Recorded Confirmed Type Acetaminophen Tab [Tylenol] 1,000 mg PO Q6HR PRN #120 tab 11/01/18 07/07/19 Rx Aspirin 325 mg PO DAILY #30 tab 11/01/18 07/07/19 Rx Atorvastatin [Lipitor] 40 mg PO DAILY #30 tab 11/01/18 07/07/19 Rx Clopidogrel [Plavix] 75 mg PO DAILY #30 tab 11/01/18 07/07/19 Rx Metoprolol Tartrate [Lopressor] 25 mg PO BID #60 tab 11/01/18 07/07/19 Rx amLODIPine [Norvasc] 5 mg PO DAILY #30 tab 11/01/18 07/07/19 Rx Allergies Allergy/AdvReac Type Severity Reaction Status Date / Time No Known Allergies Allergy Verified 07/07/19 07:45 Surgical - Exam Vital Signs Temp Pulse Resp BP Pulse Ox 97.3 F L 52 L 18 184/98 97 07/07/19 06:04 07/07/19 06:04 07/07/19 06:04 07/07/19 06:04 07/07/19 06:04 Results - Labs 07/07/19 06:22 07/07/19 06:22 Abnormal Lab Results - Last 24 Hours (Table) 07/07/19 07/07/19 Range/Units 06:22 06:22 Chloride 108 H (98-107) mmol/L Glucose 103 H (74-99) mg/dL Amylase 927 H* (30-110) U/L Lipase 35140 H (23-300) U/L Diabetes panel 07/07/19 Range/Units 06:22 Sodium 144 (137-145) mmol/L Potassium 4.6 (3.5-5.1) mmol/L Chloride 108 H (98-107) mmol/L Carbon Dioxide 26 (22-30) mmol/L BUN 15 (9-20) mg/dL Creatinine 1.11 (0.66-1.25) mg/dL Glucose 103 H (74-99) mg/dL Calcium 9.3 (8.4-10.2) mg/dL AST 33 (17-59) U/L ALT 20 (4-49) U/L Alkaline Phosphatase 118 (38-126) U/L Total Protein 7.6 (6.3-8.2) g/dL Albumin 4.4 (3.5-5.0) g/dL Calcium panel 07/07/19 Range/Units 06:22 Calcium 9.3 (8.4-10.2) mg/dL Albumin 4.4 (3.5-5.0) g/dL Pituitary panel 07/07/19 Range/Units 06:22 Sodium 144 (137-145) mmol/L Potassium 4.6 (3.5-5.1) mmol/L Chloride 108 H (98-107) mmol/L Carbon Dioxide 26 (22-30) mmol/L BUN 15 (9-20) mg/dL Creatinine 1.11 (0.66-1.25) mg/dL Glucose 103 H (74-99) mg/dL Calcium 9.3 (8.4-10.2) mg/dL Adrenal panel 07/07/19 Range/Units 06:22 Sodium 144 (137-145) mmol/L Potassium 4.6 (3.5-5.1) mmol/L Chloride 108 H (98-107) mmol/L Carbon Dioxide 26 (22-30) mmol/L BUN 15 (9-20) mg/dL Creatinine 1.11 (0.66-1.25) mg/dL Glucose 103 H (74-99) mg/dL Calcium 9.3 (8.4-10.2) mg/dL Total Bilirubin 1.0 (0.2-1.3) mg/dL AST 33 (17-59) U/L ALT 20 (4-49) U/L Alkaline Phosphatase 118 (38-126) U/L Total Protein 7.6 (6.3-8.2) g/dL Albumin 4.4 (3.5-5.0) g/dL
[2019-07-07] MEDS ORDERED: HYDROmorphone 1 MG/ML 1 ML SYRINGE IVP PRN (16:39)
[2019-07-07] MEDS: ONDANSETRON 4 MG/2 ML VIAL IVP PRN (17:10)
[2019-07-07] MEDS: SENNOSIDES-DOCUSATE SODIUM 1 EACH TAB PO SCH (19:34)
--- NOTE | 2019-07-07 21:12 | P.HPIM ---
History of Present Illness H&P Date: 07/07/19 Chief Complaint: Chest and epigastric pain History of presenting complaint: This is a pleasant 49-year-old patient of Dr. Jade. Chronic stable medical conditions include hypertension, hyperlipidemia, coronary artery disease with bypass in October of this year. This morning patient developed pain below the left clavicle and went to his left shoulder. This is around 4:30 this morning. There was no shortness of breath dizziness lightheadedness or perspiration. Subsequently the pain moved to the epigastrium and became rather severe. Enzymes are back. No fever no chills. Slight nausea. Presented to the ER. Cardiac workup also was being done. In the meantime patient's pancreatic enzymes came back to be significantly elevated. Admitted with a diagnosis of acute pancreatitis. GI and general surgery were consulted. at the bedside. Review of systems: GEN.: Tired EYES: None HEENT: None NECK: None RESPIRATORY: None CARDIOVASCULAR: As above GASTROINTESTINAL: [Has about GENITOURINARY: None MUSCULOSKELETAL: None LYMPHATICS: None HEMATOLOGICAL: None PSYCHIATRY: None NEUROLOGICAL: None Past medical history to include: Hypertension, hyperlipidemia coronary artery disease with bypass in October 2018 Social history: Currently unemployed. Doesn't smoke or drink alcohol. . Physical examination: VITAL SIGNS: 97.3, 52, 18, 141/96, 97% on room air GENERAL: [BMI 34.1, laying in bed slightly uncomfortable. EYES: Pupils equal. Conjunctiva normal. HEENT: External appearance of nose and ears normal, oral cavity grossly normal. NECK: JVD not raised; masses not palpable. HEART: First and second heart sounds are normal; no edema. LUNGS: Respiratory rate normal; clear to auscultation. ABDOMEN: Soft, significant epigastric tenderness, no guarding or rigidity liver spleen not palpable, no masses palpable. PSYCH: Alert and oriented x3; mood and affect normal. NEUROLOGICAL: Cranial nerves grossly intact; no facial asymmetry, power and sensation grossly intact. LYMPHATICS: No lymph nodes palpable in the axilla and neck INVESTIGATIONS, reviewed in the clinical context: White count 8.1 hemoglobin 17 platelets 219 compression 4.6 creatinine 1.11 Amylase 927, lipase 37558 Chest x-ray film personally reviewed by me-cardiomegaly lung petty clear EKG tracing personally reviewed by me-normal sinus rhythm Chest CTA-negative for PE Gallbladder ultrasound-hydropic size of gallbladder 11.4 cm with some gallbladder wall thickening. Common bile duct within normal limits. Assessment: -Possible acute gallstone pancreatitis. This has been most likely passed stone. -Hydropic gallbladder -Coronary artery disease with bypass in October 2018 -Essential hypertension -Hyperlipidemia Plan: Initially cardiology was consulted, then general surgery was consulted. Also was GI. Patient has been bedridden. Given IV fluids. Pain control is in place. Home medications resumed. Care was discussed with the patient and questions were answered. General surgery is planning for a possible cholecystectomy. Past Medical History Past Medical History: Coronary Artery Disease (CAD), Cancer, Chest Pain / Angina, GERD/Reflux, Hyperlipidemia, Hypertension Additional Past Medical History / Comment(s): Basal cell skin cancer with removals History of Any Multi-Drug Resistant Organisms: None Reported Past Surgical History: Coronary Bypass/CABG, Heart Catheterization, Hernia Repair, Orthopedic Surgery, Tonsillectomy Additional Past Surgical History / Comment(s): 10/27/18 CABG 4 vessel, left knee scope, L inguinal hernia repair, colonoscopy 3008-normal, skin cancer removed from back x2 Past Anesthesia/Blood Transfusion Reactions: Motion Sickness, Postoperative Nausea & Vomiting (PONV) Smoking Status: Never smoker - Past Family History Father Family Medical History: Hypertension Additional Family Medical History / Comment(s): Father is still living. Mother Family Medical History: Cancer, Hypertension Additional Family Medical History / Comment(s): Breast cancer with mets- of at the age of 53yrs. Medications and Allergies Home Medications Medication Instructions Recorded Confirmed Type Acetaminophen Tab [Tylenol] 1,000 mg PO Q6HR PRN #120 tab 11/01/18 07/07/19 Rx Aspirin 325 mg PO DAILY #30 tab 11/01/18 07/07/19 Rx Atorvastatin [Lipitor] 40 mg PO DAILY #30 tab 11/01/18 07/07/19 Rx Clopidogrel [Plavix] 75 mg PO DAILY #30 tab 11/01/18 07/07/19 Rx Metoprolol Tartrate [Lopressor] 25 mg PO BID #60 tab 11/01/18 07/07/19 Rx amLODIPine [Norvasc] 5 mg PO DAILY #30 tab 11/01/18 07/07/19 Rx Allergies Allergy/AdvReac Type Severity Reaction Status Date / Time No Known Allergies Allergy Verified 07/07/19 07:45 Physical Exam Vitals: Vital Signs Temp Pulse Pulse Resp BP BP Pulse Ox 07/07/19 08:17 52 L 18 170/108 97 07/07/19 08:00 18 07/07/19 07:48 60 18 154/82 99 07/07/19 06:06 51 L 20 141/96 98 07/07/19 06:04 97.3 F L 52 L 18 184/98 97 Intake and Output 07/06/19 07/07/19 07/07/19 22:59 06:59 14:59 Other: Voiding Method Toilet Weight 127.006 kg 127.006 kg Results CBC & Chem 7: 07/07/19 06:22 07/07/19 06:22 Labs: Abnormal Lab Results - Last 24 Hours (Table) 07/07/19 Range/Units 06:22 Chloride 108 H (98-107) mmol/L Glucose 103 H (74-99) mg/dL Thrombosis Risk Factor Assmnt - Choose All That Apply Any of the Below Risk Factors Present?: Yes Each Factor Represents 1 point: Age 41-60 years, Obesity (BMI >25) Other Risk Factors: No Other congenital or acquired thrombophilia - If yes, enter type in comment: No Thrombosis Risk Factor Assessment Total Risk Factor Score: 2 Thrombosis Risk Factor Assessment Level: Low Risk
--- NOTE | 2019-07-07 23:16 | P.CONS ---
History of Present Illness - Reason for Consult Consult date: 07/07/19 Pancreatitis Requesting physician: Lefty Herring - Chief Complaint Chest pain - History of Present Illness 49-year-old male with a medical history significant for hypertension, hyperlipidemia, coronary artery disease status post bypass surgery in 10/2018 presented to the hospital with complaints of chest and shoulder pain. He reports that in the setting of his recent bypass surgery he was going to see at night. Subsequently he developed severe pain in the upper abdomen. He reports the pain as sharp and constant with radiation into his back. He reports associated diaphoresis. He's had no prior episodes of similar complaints. He did have nausea with no vomiting associated with the pain. He denies any family history of pancreatic pathology. Does not drink any alcohol products. No herbal supplements or new medications reported. No prior episodes of pancr eatitis. Did have a small bowel movement today and denies any change in bowel habits or blood per rectum. He was found to have elevation in his amylase 927 and lipase 14,840. Other laboratory evaluation significant for WBC 8.1, hemoglobin 17, platelet count 290,000, INR 0.9, total bilirubin 1.0, alkaline phosphatase is 118, AST 33 and ALT 20. Ultrasound of the abdomen was negative for any choledocholithiasis, CBD dilation but did show thickening of the gallbladder wall. Review of Systems REVIEW OF SYSTEMS: CONSTITUTIONAL: Denies any fevers, chills, weight change or fatigue. CARDIOVASCULAR: Denies any palpitations high or low blood pressures, he did have chest pain on presentation which has resolved with a negative cardiac workup. RESPIRATORY: Denies any shortness of breath, hemoptysis or cough. GENITOURINARY: No dysuria or hematuria. MUSCULOSKELETAL: No weakness reported. SKIN: Denies any new rashes or lesions, jaundice or pallor. PSYCHIATRIC: Denies any depression or anxiety. NEUROLOGY: Denies headache, denies any new focal deficits. EARS/NOSE/THROAT: No recent hearing change, congestion, nasal discharge or sore throat. EYES: No pain in eyes, discharge or change in vision. GASTROINTESTINAL: As per HPI. Past Medical History Past Medical History: Coronary Artery Disease (CAD), Cancer, Chest Pain / Angina, GERD/Reflux, Hyperlipidemia, Hypertension Additional Past Medical History / Comment(s): Basal cell skin cancer with removals History of Any Multi-Drug Resistant Organisms: None Reported Past Surgical History: Coronary Bypass/CABG, Heart Catheterization, Hernia Repair, Orthopedic Surgery, Tonsillectomy Additional Past Surgical History / Comment(s): 10/27/18 CABG 4 vessel, left knee scope, L inguinal hernia repair, colonoscopy 3008-normal, skin cancer removed from back x2 Past Anesthesia/Blood Transfusion Reactions: Motion Sickness, Postoperative Nausea & Vomiting (PONV) Smoking Status: Never smoker - Past Family History Father Family Medical History: Hypertension Additional Family Medical History / Comment(s): Father is still living. Mother Family Medical History: Cancer, Hypertension Additional Family Medical History / Comment(s): Breast cancer with mets- of at the age of 53yrs. Medications and Allergies Home Medications Medication Instructions Recorded Confirmed Type Acetaminophen Tab [Tylenol] 1,000 mg PO Q6HR PRN #120 tab 11/01/18 07/07/19 Rx Aspirin 325 mg PO DAILY #30 tab 11/01/18 07/07/19 Rx Atorvastatin [Lipitor] 40 mg PO DAILY #30 tab 11/01/18 07/07/19 Rx Clopidogrel [Plavix] 75 mg PO DAILY #30 tab 11/01/18 07/07/19 Rx Metoprolol Tartrate [Lopressor] 25 mg PO BID #60 tab 11/01/18 07/07/19 Rx amLODIPine [Norvasc] 5 mg PO DAILY #30 tab 11/01/18 07/07/19 Rx Allergies Allergy/AdvReac Type Severity Reaction Status Date / Time No Known Allergies Allergy Verified 07/07/19 07:45 Physical Exam Vitals: Vital Signs Temp Pulse Pulse Resp BP BP Pulse Ox 07/07/19 20:00 67 17 07/07/19 19:03 97.5 F L 67 17 137/65 98 07/07/19 16:00 97.6 F 56 L 18 151/88 96 07/07/19 12:00 51 L 18 07/07/19 11:20 97.5 F L 51 L 18 148/91 95 07/07/19 08:17 52 L 18 170/108 97 07/07/19 08:00 18 07/07/19 07:48 60 18 154/82 99 07/07/19 06:06 51 L 20 141/96 98 07/07/19 06:04 97.3 F L 52 L 18 184/98 97 Intake and Output 07/07/19 07/07/19 07/08/19 14:59 22:59 06:59 Other: Voiding Method Toilet Toilet # Voids 1 Weight 127.006 kg On physical examination, patient appears comfortable in no apparent distress. HEAD: Normocephalic, atraumatic. EYES: No scleral icterus. No conjunctival injection. MOUTH: No lesions, tongue midline. NECK: Trachea midline, no gross abnormalities. CHEST: Clear to auscultation with no wheezing or rhonchi appreciated. HEART: Regular rate and rhythm. ABDOMEN: Soft, moderately tender to palpation. Bowel sounds are positive. No organomegaly. No guarding or rigidity. EXTREMITIES: No pedal edema. SKIN: No rashes, no jaundice. NEUROLOGIC: Alert and oriented x3. No focal deficits. Results CBC & Chem 7: 07/07/19 06:22 07/07/19 06:22 Labs: Abnormal Lab Results - Last 24 Hours (Table) 07/07/19 07/07/19 Range/Units 06:22 06:22 Chloride 108 H (98-107) mmol/L Glucose 103 H (74-99) mg/dL Amylase 927 H* (30-110) U/L Lipase 47886 H (23-300) U/L US - abdomen: report reviewed (Ultrasound of the abdomen with findings of gallbladder wall thickening) Assessment and Plan (1) Acute pancreatitis Narrative/Plan: 49-year-old male initially presented to hospital with complaints of chest pain subsequently reporting abdominal pain and found to have elevation in amylase and lipase consistent with acute uncomplicated pancreatitis. Ultrasound of the abdomen negative for choledocholithiasis or CBD dilation however there were concerns for gallbladder wall thickening and acute cholecystitis. Liver enzymes have remained normal, patient also denies any history of prior pancreatitis or alcohol use or family history of pancreatitis. Current Visit: Yes Status: Acute Code(s): K85.90 - ACUTE PANCREATITIS WITHOUT NECROSIS OR INFECTION, UNSP SNOMED Code(s): 271120547 Plan: Supportive care Clear liquid diet Continue pain control IV fluids, additional bolus provided by surgical service Continue to monitor symptomatically Continue to monitor CBC, CMP MAHENDRA, IgG subclasses and triglyceride levels ordered Thank you for allowing us to participate in the care of the patient, we will continue to follow
[2019-07-08] MEDS: ACETAMINOPHEN TAB 500 MG TAB PO PRN ×4 (03:19→20:39)
[2019-07-08] MEDS: SODIUM CHLORIDE 0.9% 1,000 ML IV SCH ×3 (03:20→14:38)
[2019-07-08] MEDS: KETOROLAC 30 MG/ML 1 ML VIAL IVP SCH ×4 (05:31→23:33)
[2019-07-08 06:18] LABS: ALT 27 U/L (4-49); AST 34 U/L (17-59); African American GFR (CKD) >90 (>60 ml/min/1.73 sqM); Albumin 3.8 g/dL (3.5-5.0); Alkaline Phosphatase 99 U/L (38-126); Anion Gap 10 mmol/L; Blood Urea Nitrogen 12 mg/dL (9-20); Calcium 8.6 mg/dL (8.4-10.2); Carbon Dioxide 22 mmol/L (22-30); Chloride 108 mmol/L (98-107); Cholesterol 113 mg/dL (<200); Glucose 107 mg/dL (74-99); HDL Cholesterol 39 mg/dL (40-60); LDL Cholesterol,Calculated 53 mg/dL (0-99); Non-African American GFR(CKD) 86 (>60 ml/min/1.73 sqM); Potassium 4.3 mmol/L (3.5-5.1); Sodium 140 mmol/L (137-145); Total Bilirubin 1.8 mg/dL (0.2-1.3); Total Protein 6.8 g/dL (6.3-8.2); Triglycerides 104 mg/dL (<150)
[2019-07-08 06:24] LABS: Amylase 586 U/L (30-110)
[2019-07-08] MEDS: amLODIPine 5 MG TAB PO SCH (08:43)
[2019-07-08] MEDS: METOPROLOL TARTRATE 25 MG TAB PO SCH ×2 (08:43→20:40)
[2019-07-08] MEDS: ATORVASTATIN 40 MG TAB PO SCH (08:43)
[2019-07-08] MEDS: PANTOPRAZOLE 40 MG TABLET PO SCH (08:43)
--- NOTE | 2019-07-08 11:37 | P.PN ---
Progress Note - Text Progress Note Date: 07/08/19 The patient feels slightly better today. His amylase lipase have improved. On exam his vital signs are stable. His abdomen soft. Gallstone hepatitis. Patient undergo laparoscopic cholecystectomy in the a.m.
[2019-07-08] MEDS: ASPIRIN 81 MG PO SCH (12:05)
[2019-07-08] MEDS: SENNOSIDES-DOCUSATE SODIUM 1 EACH TAB PO SCH (20:39)
--- NOTE | 2019-07-08 21:00 | P.PN ---
Subjective Progress Note Date: 07/08/19 Principal diagnosis: Acute pancreatitis Patient seen lying in bed reporting abdominal pain is improved however still present. He has tolerated some liquids but reports some worsened pain with copious liquid intake. Objective - Vital Signs Vital signs: Vital Signs Temp 97.8 F 07/08/19 08:00 Pulse 61 07/08/19 08:00 Resp 17 07/08/19 08:00 BP 149/95 07/08/19 08:00 Pulse Ox 91 L 07/08/19 08:00 Intake & Output 07/07/19 07/08/19 07/08/19 18:59 06:59 18:59 Weight 127.006 kg 127 kg Other: Voiding Method Toilet Toilet Toilet # Voids 3 1 1 - Exam On physical examination, patient appears comfortable in no apparent distress. HEAD: Normocephalic, atraumatic. EYES: No scleral icterus. No conjunctival injection. MOUTH: No lesions, tongue midline. NECK: Trachea midline, no gross abnormalities. CHEST: Clear to auscultation with no wheezing or rhonchi appreciated. HEART: Regular rate and rhythm. ABDOMEN: Soft, moderately tender to palpation in the epigastrium. Bowel sounds are positive. No organomegaly. No guarding or rigidity. EXTREMITIES: No pedal edema. SKIN: No rashes, no jaundice. NEUROLOGIC: Alert and oriented x3. No focal deficits. - Labs CBC & Chem 7: 07/07/19 06:22 07/08/19 05:31 Labs: Abnormal Lab Results - Last 24 Hours (Table) 07/08/19 Range/Units 05:31 Chloride 108 H (98-107) mmol/L Glucose 107 H (74-99) mg/dL Total Bilirubin 1.8 H (0.2-1.3) mg/dL HDL Cholesterol 39 L (40-60) mg/dL Amylase 586 H* (30-110) U/L Lipase 2773 H (23-300) U/L Assessment and Plan (1) Acute pancreatitis Narrative/Plan: 49-year-old male initially presented to hospital with complaints of chest pain subsequently reporting abdominal pain and found to have elevation in amylase and lipase consistent with acute uncomplicated pancreatitis. Ultrasound of the abd omen negative for choledocholithiasis or CBD dilation however there were concerns for gallbladder wall thickening and acute cholecystitis. Liver enzymes have remained normal, patient also denies any history of prior pancreatitis or alcohol use or family history of pancreatitis. Current Visit: Yes Status: Acute Code(s): K85.90 - ACUTE PANCREATITIS WITHOUT NECROSIS OR INFECTION, UNSP SNOMED Code(s): 592817520 Plan: Supportive care Clear liquid diet Continue pain control IV fluids Continue to monitor symptomatically Continue to monitor CBC, CMP MAHENDRA, IgG subclasses and triglyceride levels ordered Plan is for cholecystectomy tomorrow with the surgical service Thank you for allowing us to participate in the care of the patient, we will continue to follow
[2019-07-09] MEDS: KETOROLAC 30 MG/ML 1 ML VIAL IVP SCH ×4 (05:35→23:32)
[2019-07-09] MEDS: SODIUM CHLORIDE 0.9% 1,000 ML IV SCH ×4 (05:35→23:34)
[2019-07-09] MEDS ORDERED: NEOSTIGMINE 1 MG/ML 10 ML VIAL ONE (10:46)
[2019-07-09] MEDS ORDERED: GLYCOPYRROLATE 0.2 MG/ML 2 ML VIAL ONE (10:46)
[2019-07-09] MEDS ORDERED: SUCCINYLCHOLINE CHLORIDE 100 MG/5 ML SYR IV ONE (10:46)
[2019-07-09] MEDS ORDERED: PROPOFOL 10 MG/ML 20 ML VIAL IV ONE (10:46)
[2019-07-09] MEDS ORDERED: KETOROLAC 30 MG/ML 1 ML VIAL ONE (10:46)
[2019-07-09] MEDS ORDERED: MIDAZOLAM 2 MG/2 ML VIAL ONE (10:46)
[2019-07-09] MEDS ORDERED: fentaNYL (PF) 50 MCG/ML 2 ML AMP ONE (10:46)
[2019-07-09] MEDS ORDERED: ROCURONIUM BROMIDE 10 MG/ML 10 ML VIAL IV ONE (10:46)
[2019-07-09] MEDS ORDERED: PHENYLEPHRINE-0.9% NACL SYG 1 MG/10 ML SYRINGE ONE (10:46)
[2019-07-09] MEDS ORDERED: IV FLUID CONTINUATION 400 ML IV ONE (11:12)
[2019-07-09] MEDS ORDERED: SODIUM CHLORIDE 0.9% 50 ML with ceFAZolin 2,000 MG IV ONE ×2 (11:12)
[2019-07-09] MEDS ORDERED: BUPIVACAINE (PF) 0.25% 30 ML VIAL SQ ONE (11:15)
[2019-07-09] MEDS ORDERED: LACTATED RINGERS 1,000 ML IV ONE (11:19)
--- NOTE | 2019-07-09 11:43 | P.OP ---
Date of Procedure: 07/09/19 Preoperative Diagnosis: Gallstone pancreatitis Postoperative Diagnosis: Gallstone pancreatitis Procedure(s) Performed: Laparoscopic cholecystectomy Anesthesia: MICHAEL Surgeon: Phu Reagan Estimated Blood Loss (ml): 10 Pathology: other (Gallbladder) Condition: stable Disposition: PACU Description of Procedure: The patient was placed on the operating table. The patient received a general endotracheal tube anesthesia. The patients abdomen was prepped and draped in the usual sterile fashion. Through an infraumbilical stab incision, the fascia of the anterior abdominal wall was grasped with a pair of Kochers and then the Veress needle was placed in the peritoneal cavity. Position of the Veress needle was confirmed with positive drop test. The abdomen was then insufflated. After adequate insufflation, the 10 mm trocar was placed in the peritoneal cavity. Following this the laparoscope was placed in the peritoneal cavity. The patient was placed in the head-up, right side up position and then a 5 mm trocar was placed in the right lateral and right subcostal position under direct visualization. A 8 mm trocar was placed in the epigastric position. The gallbladder was grasped in the fundus and infundibulum. Traction on the gallbladder was placed in the lateral and the cephalad positions. The triangle of Calot was visualized.. The cystic duct was bluntly dissected until the union of the cystic duct and common bile duct was seen. A critical view of safety was achieved. The cystic duct was then divided and sealed with the Harmonic scissors. A PDS Endoloop was then placed throughout the cystic duct stump. The cystic artery divided and sealed with the Harmonic scissors. The gallbladder was then removed from the liver bed using Harmonic scissors. The gallbladder was then extracted through the epigastric port site. Operative field was checked for any bleeding spots and Harmonic scissors was used to coagulate the liver bed. The abdomen was irrigated. The trocars were removed. The skin was closed using interrupted 3-0 Vicryl suture. Dermabond dressing were applied. The patient tolerated the procedure well.
[2019-07-09] MEDS ORDERED: HYDROmorphone 1 MG/ML 1 ML SYRINGE IVP PRN (11:44)
[2019-07-09] MEDS: ATORVASTATIN 40 MG TAB PO SCH (12:59)
[2019-07-09] MEDS: PANTOPRAZOLE 40 MG TABLET PO SCH (12:59)
[2019-07-09] MEDS: ASPIRIN 81 MG PO SCH (12:59)
[2019-07-09] MEDS: amLODIPine 5 MG TAB PO SCH (12:59)
[2019-07-09] MEDS: METOPROLOL TARTRATE 25 MG TAB PO SCH ×2 (13:00→20:18)
[2019-07-09] MEDS: ACETAMINOPHEN TAB 500 MG TAB PO PRN ×2 (14:14→20:18)
[2019-07-09] MEDS: ONDANSETRON 4 MG/2 ML VIAL IVP PRN (16:21)
--- NOTE | 2019-07-09 19:25 | P.PN ---
Subjective Progress Note Date: 07/09/19 Principal diagnosis: Acute pancreatitis Patient seen lying in bed reporting abdominal pain is improved but the patient is somewhat somnolent status post cholecystectomy this morning. Denies any nausea or vomiting. Objective - Vital Signs Vital signs: Vital Signs Temp 99.2 F 07/09/19 07:00 Pulse 63 07/09/19 07:00 Resp 16 07/09/19 07:00 BP 129/84 07/09/19 07:00 Pulse Ox 92 L 07/09/19 07:00 Intake & Output 07/08/19 07/09/19 07/09/19 18:59 06:59 18:59 Intake Total 450 450 Balance 450 450 Weight 127 kg Intake: IV 450 Intake, IV Titration 450 Amount Sodium Chloride 0.9% 1, 450 000 ml @ 150 mls/hr IV . Q6H40M [facility] Rx#:[id number] Other: Voiding Method Toilet # Voids 1 1 - Exam On physical examination, patient appears comfortable in no apparent distress. HEAD: Normocephalic, atraumatic. EYES: No scleral icterus. No conjunctival injection. MOUTH: No lesions, tongue midline. NECK: Trachea midline, no gross abnormalities. CHEST: Clear to auscultation with no wheezing or rhonchi appreciated. HEART: Regular rate and rhythm. ABDOMEN: Soft, appropriately tender status post cholecystectomy. Bowel sounds are positive. No organomegaly. No guarding or rigidity. EXTREMITIES: No pedal edema. SKIN: No rashes, no jaundice. NEUROLOGIC: Alert and oriented x3. No focal deficits. - Labs CBC & Chem 7: 07/07/19 06:22 07/08/19 05:31 Assessment and Plan (1) Acute pancreatitis Narrative/Plan: 49-year-old male initially presented to hospital with complaints of chest pain subsequently reporting abdominal pain and found to have elevation in amylase and lipase consistent with acute uncomplicated pancreatitis. Ultrasound of the abdomen negative for choledocholithiasis or CBD dilation however there were concerns for gallbladder wall thickening and acute cholecystitis. Patient denies any history of prior pancreatitis or alcohol use or family history of pancreatitis. Current Visit: Yes Status: Acute Code(s): K85.90 - ACUTE PANCREATITIS WITHOUT NECROSIS OR INFECTION, UNSP SNOMED Code(s): 633702228 Plan: Supportive care Diet per the surgical service Continue pain control IV fluids Continue to monitor symptomatically Continue to monitor CBC, CMP Patient underwent successful cholecystectomy today Okay for discharge from gastroenterology when otherwise medically stable Thank you for allowing us to participate in the care of the patient, the GI service will stand by, please call us back with any questions or concerns
[2019-07-09] MEDS ORDERED: HYDROmorphone 0.5 MG/0.5 ML SYRINGE IVP PRN (20:05)
[2019-07-09] MEDS ORDERED: LACTATED RINGERS 1,000 ML IV SCH (20:05)
[2019-07-09] MEDS: SENNOSIDES-DOCUSATE SODIUM 1 EACH TAB PO SCH (20:18)
--- NOTE | 2019-07-09 20:34 | P.PN ---
Progress Note - Text Progress Note Date: 07/08/19 Chief Complaint: Chest and epigastric pain History of presenting complaint: This is a pleasant 49-year-old patient of Dr. Jade. Chronic stable medical conditions include hypertension, hyperlipidemia, coronary artery disease with bypass in October of this year. This morning patient developed pain below the left clavicle and went to his left shoulder. This is around 4:30 this morning. There was no shortness of breath dizziness lightheadedness or perspiration. Subsequently the pain moved to the epigastrium and became rather severe. Enzymes are back. No fever no chills. Slight nausea. Presented to the ER. Cardiac workup also was being done. In the meantime patient's pancreatic enzymes came back to be significantly elevated. Admitted with a diagnosis of acute pancreatitis. Also possible cholecystitis. May have passed a stone. Today-Pain Present but a Bit Better. No Nausea Vomiting. Sitting up. Review of systems: Was done for constitutional, cardiovascular, GI, pulmonary. relevant finding as above Current medications reviewed in today's electronic records Physical examination: VITAL SIGNS: 98.2, 75, 18, 137/91, 92% on 4 L GENERAL: Propped up in bed, slightly uncomfortable. EYES: Pupils equal. Conjunctiva normal. HEENT: External appearance of nose and ears normal, oral cavity grossly normal. NECK: JVD not raised; masses not palpable. HEART: First and second heart sounds are normal; no edema. LUNGS: Respiratory rate normal; clear to auscultation. ABDOMEN: Soft, epigastric tenderness, no guarding or rigidity liver spleen not palpable, no masses palpable. PSYCH: Alert and oriented x3; mood and affect normal. INVESTIGATIONS, reviewed in the clinical context: Potassium 4.3 creatinine 1.01 amylase 586 lipase 2773 Previous testing White count 8.1 hemoglobin 17 platelets 219 compression 4.6 creatinine 1.11 Amylase 927, lipase 27985 Chest x-ray film personally reviewed by me-cardiomegaly lung petty clear EKG tracing personally reviewed by me-normal sinus rhythm Chest CTA-negative for PE Gallbladder ultrasound-hydropic size of gallbladder 11.4 cm with some gallbladder wall thickening. Common bile duct within normal limits. Assessment: -Possible acute gallstone pancreatitis. This has been most likely passed stone. Slowly improving -Hydropic gallbladder -Coronary artery disease with bypass in October 2018 -Essential hypertension -Hyperlipidemia Plan: Getting IV fluids. Dr. Reagan scarring for cholecystectomy. Other medications to continue. Discussed with patient.
--- NOTE | 2019-07-09 20:36 | P.PN ---
Progress Note - Text Progress Note Date: 07/09/19 Chief Complaint: Chest and epigastric pain History of presenting complaint: This is a pleasant 49-year-old patient of Dr. Jade. Chronic stable medical conditions include hypertension, hyperlipidemia, coronary artery disease with bypass in October of this year. This morning patient developed pain below the left clavicle and went to his left shoulder. This is around 4:30 this morning. There was no shortness of breath dizziness lightheadedness or perspiration. Subsequently the pain moved to the epigastrium and became rather severe. Enzymes are back. No fever no chills. Slight nausea. Presented to the ER. Cardiac workup also was being done. In the meantime patient's pancreatic enzymes came back to be significantly elevated. Admitted with a diagnosis of acute pancreatitis. Also possible cholecystitis. May have passed a stone. Today-Underwent laparoscopic cholecystectomy by Dr. Reagan.. Some postop pain is present. Laying in bed. Review of systems: Was done for constitutional, cardiovascular, GI, pulmonary. relevant finding as above Active Medications Acetaminophen (Tylenol Tab) 1,000 mg PO Q6HR PRN PRN Reason: Fever and/ or MILD Pain Last Admin: 07/09/19 20:18 Dose: 1,000 mg Documented by: Amlodipine Besylate (Norvasc) 5 mg PO DAILY [facility] Last Admin: 07/09/19 12:59 Dose: Not Given Documented by: Aspirin (Aspirin) 81 mg PO DAILY [facility] Last Admin: 07/09/19 12:59 Dose: Not Given Documented by: Atorvastatin Calcium (Lipitor) 40 mg PO DAILY [facility] Last Admin: 07/09/19 12:59 Dose: Not Given Documented by: Hydromorphone HCl (Dilaudid) 1 mg IVP Q4HR PRN PRN Reason: MODERATE Pain Last Admin: 07/07/19 17:10 Dose: 1 mg Documented by: Hydromorphone HCl (Dilaudid) 1 mg IVP Q3HR PRN PRN Reason: SEVERE Pain Hydromorphone HCl (Dilaudid) 0.5 mg IVP Q5M PRN PRN Reason: Pain Control Stop: 07/10/19 20:06 Sodium Chloride (Saline 0.9%) 1,000 mls @ 150 mls/hr IV .Q6H40M [facility] Last Admin: 07/09/19 14:13 Dose: 150 mls/hr Documented by: Lactated Ringer's (Lactated Ringers) 1,000 mls @ 20 mls/hr IV .Q24H [facility] Ketorolac Tromethamine (Toradol) 30 mg IVP Q6HR [facility] Stop: 07/11/19 10:57 Last Admin: 07/09/19 16:09 Dose: 30 mg Documented by: Metoprolol Tartrate (Lopressor) 25 mg PO BID [facility] Last Admin: 07/09/19 20:18 Dose: 25 mg Documented by: Nitroglycerin (Nitrostat) 0.4 mg SUBLINGUAL Q5M PRN PRN Reason: Chest Pain Ondansetron HCl (Zofran) 4 mg IVP Q6HR PRN PRN Reason: Nausea And Vomiting Last Admin: 07/09/19 16:21 Dose: 4 mg Documented by: Pantoprazole Sodium (Protonix) 40 mg PO AC-BRKFST [facility] Last Admin: 07/09/19 12:59 Dose: Not Given Documented by: Senna/Docusate Sodium (Senokot-S) 2 each PO HS [facility] Last Admin: 07/09/19 20:18 Dose: 2 each Documented by: Physical examination: VITAL SIGNS: 98.2, 75, 18, 137/91, 92% on 4 L GENERAL: Propped up in bed, slightly uncomfortable. EYES: Pupils equal. Conjunctiva normal. HEENT: External appearance of nose and ears normal, oral cavity grossly normal. NECK: JVD not raised; masses not palpable. HEART: First and second heart sounds are normal; no edema. LUNGS: Respiratory rate normal; clear to auscultation. ABDOMEN: Soft, epigastric tenderness, no guarding or rigidity liver spleen not palpable, no masses palpable. PSYCH: Alert and oriented x3; mood and affect normal. INVESTIGATIONS, reviewed in the clinical context: Potassium 4.3 creatinine 1.01 amylase 586 lipase 2773 Previous testing White count 8.1 hemoglobin 17 platelets 219 compression 4.6 creatinine 1.11 Amylase 927, lipase 50388 Chest x-ray film personally reviewed by me-cardiomegaly lung petty clear EKG tracing personally reviewed by me-normal sinus rhythm Chest CTA-negative for PE Gallbladder ultrasound-hydropic size of gallbladder 11.4 cm with some gallbladder wall thickening. Common bile duct within normal limits. Assessment: -Possible acute gallstone pancreatitis. most likely passed stone. -Laparoscopic cholecystectomy -Hydropic gallbladder -Coronary artery disease with bypass in October 2018 -Essential hypertension -Hyperlipidemia Plan: Getting IV fluids. Some oozing of blood at the access site. Some pain is present. Family the bedside..
[2019-07-10] MEDS: KETOROLAC 30 MG/ML 1 ML VIAL IVP SCH ×2 (05:35→11:12)
[2019-07-10] MEDS: amLODIPine 5 MG TAB PO SCH (07:48)
[2019-07-10] MEDS: ACETAMINOPHEN TAB 500 MG TAB PO PRN (07:48)
[2019-07-10] MEDS: ASPIRIN 81 MG PO SCH (07:49)
[2019-07-10] MEDS: METOPROLOL TARTRATE 25 MG TAB PO SCH (07:49)
[2019-07-10] MEDS: PANTOPRAZOLE 40 MG TABLET PO SCH (07:49)
[2019-07-10] MEDS: ATORVASTATIN 40 MG TAB PO SCH (07:49)
[2019-07-10 07:52] VITALS: BP 120/74; PULSE 61; RESP 16; TEMP 98.1
[2019-07-10 08:46] LABS: IgG Subclass 3 9.6 mg/dL (11.0-85.0); IgG Subclass 4 39.3 mg/dL (3.0-175.0)
[2019-07-10 09:43] LABS: HCT 34.9 % (39.0-53.0); MCH 30.3 pg (25.0-35.0); MCHC 33.9 g/dL (31.0-37.0); MCV 89.5 fL (80.0-100.0); Mean Platelet Volume 8.5; Platelet Count 218 k/uL (150-450); RDW 13.8 % (11.5-15.5); WBC 11.2 k/uL (3.8-10.6)
[2019-07-10 09:50] LABS: Calcium 8.1 mg/dL (8.4-10.2); Potassium 4.8 mmol/L (3.5-5.1); Total Bilirubin 3.2 mg/dL (0.2-1.3); Total Protein 5.6 g/dL (6.3-8.2)
[2019-07-10 09:51] LABS: HGB 11.8 gm/dL (13.0-17.5)
--- NOTE | 2019-07-10 14:07 | P.PN ---
Progress Note - Text Progress Note Date: 07/10/19 The patient's postoperative day 1 from laparoscopic cholestatic. He feels well. He has some minor swelling of his right abdominal wall. On exam his vital signs are stable. His abdomen soft. Incision sites are clean and intact. Patiently discharged home today. He'll follow-up as of 1 week.
--- NOTE | 2019-07-11 00:17 | P.PN ---
Progress Note - Text Progress Note Date: 07/11/19 Chief Complaint: Chest and epigastric pain Hospital course: This is a pleasant 49-year-old patient of Dr. Jade. Chronic stable medical conditions include hypertension, hyperlipidemia, coronary artery disease with bypass in October of this year. This morning patient developed pain below the left clavicle and went to his left shoulder. This is around 4:30 this morning. There was no shortness of breath dizziness lightheadedness or perspiration. Subsequently the pain moved to the epigastrium and became rather severe. Enzymes are back. No fever no chills. Slight nausea. Presented to the ER. Cardiac workup also was being done. In the meantime patient's pancreatic enzymes came back to be significantly elevated. Admitted with a diagnosis of acute pancreatitis. Also possible cholecystitis. May have passed a stone. laparoscopic cholecystectomy by Dr. Reagan Today-diet was advanced per Dr. Reagan. Cleared for him to go home, today. Otherwise patient feeling well. Care was discussed with the patient and . Consultation: Dr. Reagan from surgery Dr. Dickens from GI. Physical examination: VITAL SIGNS: 98.1, 61, 16, 120/74, 92% on room air GENERAL: Propped up in bed, comfortable EYES: Pupils equal. Conjunctiva normal. HEENT: External appearance of nose and ears normal, oral cavity grossly normal. NECK: JVD not raised; masses not palpable. HEART: First and second heart sounds are normal; no edema. LUNGS: Respiratory rate normal; clear to auscultation. ABDOMEN: Soft, epigastric tenderness, bowel sounds present, no guarding or rigidity liver spleen not palpable, no masses palpable. PSYCH: Alert and oriented x3; mood and affect normal. INVESTIGATIONS, reviewed in the clinical context: White count 11.2 hemoglobin 11.8 progression 4.8 creatinine 1.13 Total bilirubin 3.2 ALT 86 alkaline phosphatase 183 amylase 65 lipase 118 Previous testing White count 8.1 hemoglobin 17 platelets 219 compression 4.6 creatinine 1.11 Amylase 927, lipase 40759 Chest x-ray film personally reviewed by me-cardiomegaly lung petty clear EKG tracing personally reviewed by me-normal sinus rhythm Chest CTA-negative for PE Gallbladder ultrasound-hydropic size of gallbladder 11.4 cm with some gallbladder wall thickening. Common bile duct within normal limits. Assessment: -Possible acute gallstone pancreatitis. most likely passed stone. -Laparoscopic cholecystectomy -Hydropic gallbladder -Coronary artery disease with bypass in October 2018 -Essential hypertension -Hyperlipidemia Disposition: Home
--- NOTE | 2019-07-14 20:00 | P.DS ---
Providers Date of admission: 07/07/19 14:04 Expected date of discharge: 07/10/19 Attending physician: Lefty Herring Consults: 07/07/19 07:18 Consult Physician Routine Consulting Provider: Jefferson Loja Consult Reason/Comments: chest pain. Your patient Do you want consulting provider notified?: Yes 07/07/19 10:40 Consult Physician Routine Consulting Provider: Phu Reagan Consult Reason/Comments: abd. pain Do you want consulting provider notified?: Yes Primary care physician: Fernando Jade [place] Hospital Course: Chief Complaint: Chest and epigastric pain Hospital course: This is a pleasant 49-year-old patient of Dr. Jade. Chronic stable medical conditions include hypertension, hyperlipidemia, coronary artery disease with bypass in October of this year. This morning patient developed pain below the left clavicle and went to his left shoulder. This is around 4:30 this morning. There was no shortness of breath dizziness lightheadedness or perspiration. Subsequently the pain moved to the epigastrium and became rather severe. Enzymes are back. No fever no chills. Slight nausea. Presented to the ER. Cardiac workup also was being done. In the meantime patient's pancreatic enzymes came back to be significantly elevated. Admitted with a diagnosis of acute pancreatitis. Also possible cholecystitis. May have passed a stone. laparoscopic cholecystectomy by Dr. Reagan Today-diet was advanced per Dr. Reagan. Cleared for him to go home, today. Otherwise patient feeling well. Care was discussed with the patient and . Consultation: Dr. Reagan from surgery Dr. Dickens from GI. Physical examination: VITAL SIGNS: 98.1, 61, 16, 120/74, 92% on room air GENERAL: Propped up in bed, comfortable EYES: Pupils equal. Conjunctiva normal. HEENT: External appearance of nose and ears normal, oral cavity grossly normal. NECK: JVD not raised; masses not palpable. HEART: First and second heart sounds are normal; no edema. LUNGS: Respiratory rate normal; clear to auscultation. ABDOMEN: Soft, epigastric tenderness, bowel sounds present, no guarding or rigidity liver spleen not palpable, no masses palpable. PSYCH: Alert and oriented x3; mood and affect normal. INVESTIGATIONS, reviewed in the clinical context: White count 11.2 hemoglobin 11.8 progression 4.8 creatinine 1.13 Total bilirubin 3.2 ALT 86 alkaline phosphatase 183 amylase 65 lipase 118 Previous testing White count 8.1 hemoglobin 17 platelets 219 compression 4.6 creatinine 1.11 Amylase 927, lipase 26503 Chest x-ray film personally reviewed by me-cardiomegaly lung petty clear EKG tracing personally reviewed by me-normal sinus rhythm Chest CTA-negative for PE Gallbladder ultrasound-hydropic size of gallbladder 11.4 cm with some gal lbladder wall thickening. Common bile duct within normal limits. Assessment: -Possible acute gallstone pancreatitis. most likely passed stone. -Laparoscopic cholecystectomy -Hydropic gallbladder -Coronary artery disease with bypass in October 2018 -Essential hypertension -Hyperlipidemia Disposition: Home Patient Condition at Discharge: Good Plan - Discharge Summary Discharge Rx Participant: Yes New Discharge Prescriptions: New Docusate [Colace] 100 mg PO BID #20 capsule HYDROcodone/APAP 5-325MG [Oley 5-325] 1 tab PO Q6HR PRN #10 tab PRN Reason: Pain Aspirin 81 mg PO DAILY chew Continue Atorvastatin [Lipitor] 40 mg PO DAILY #30 tab Metoprolol Tartrate [Lopressor] 25 mg PO BID #60 tab amLODIPine [Norvasc] 5 mg PO DAILY #30 tab Clopidogrel [Plavix] 75 mg PO DAILY #30 tab Acetaminophen Tab [Tylenol] 1,000 mg PO Q6HR PRN #120 tab PRN Reason: Fever And/ Or Pain Discontinued Aspirin 325 mg PO DAILY #30 tab No Action Levofloxacin 750 mg PO DAILY #7 tablet Ketorolac [Toradol] 10 mg PO Q6HR #16 tab Discharge Medication List Acetaminophen Tab [Tylenol] 1,000 mg PO Q6HR PRN #120 tab 11/01/18 [Rx] Atorvastatin [Lipitor] 40 mg PO DAILY #30 tab 11/01/18 [Rx] Clopidogrel [Plavix] 75 mg PO DAILY #30 tab 11/01/18 [Rx] Metoprolol Tartrate [Lopressor] 25 mg PO BID #60 tab 11/01/18 [Rx] amLODIPine [Norvasc] 5 mg PO DAILY #30 tab 11/01/18 [Rx] Aspirin 81 mg PO DAILY chew 07/10/19 [Rx] Docusate [Colace] 100 mg PO BID #20 capsule 07/10/19 [Rx] HYDROcodone/APAP 5-325MG [[place] 5-325] 1 tab PO Q6HR PRN #10 tab 07/10/19 [Rx] Ketorolac [Toradol] 10 mg PO Q6HR #16 tab 07/14/19 [Rx] Levofloxacin 750 mg PO DAILY #7 tablet 07/14/19 [Rx] Follow up Appointment(s)/Referral(s): Cooper Jade MD [Primary Care Provider] - 07/24/19 9:00 am Luis Barnard MD [STAFF PHYSICIAN] - 07/24/19 3:15 pm Phu Reagan MD [STAFF PHYSICIAN] - 07/20/19 1:15 pm Patient Instructions/Handouts: Chest Pain (ED) Activity/Diet/Wound Care/Special Instructions: Contact CM at dc if any rx for indigent funds Discharge Disposition: HOME SELF-CARE
== END 2019-07-10 13:56 | disposition home or self-care (01) | DRG 418 ==
LOC: EC 06:01 → 1SOBS 07:26 → OBSVTOIN 14:04 → 4SSUR 07-08 14:17
PROVIDERS: ADMIT Hospitalist; ATTEND Hospitalist
PROC: 0FT44ZZ Resection of Gallbladder, Percutaneous Endoscopic Approach (ICD-10-PCS; principal; 2019-07-09 10:15)
DX: K85.10 Biliary acute pancreatitis without necrosis or infection (principal); K82.1 Hydrops of gallbladder; K80.10 Calculus of gallbladder with chronic cholecystitis without obstruction; I25.10 Atherosclerotic heart disease of native coronary artery without angina pectoris; I10 Essential (primary) hypertension; E78.5 Hyperlipidemia, unspecified; K21.9 Gastro-esophageal reflux disease without esophagitis; E66.9 Obesity, unspecified; R00.1 Bradycardia, unspecified; Z68.34 Body mass index [BMI] 34.0-34.9, adult; Z79.82 Long term (current) use of aspirin; Z79.899 Other long term (current) drug therapy; Z79.02 Long term (current) use of antithrombotics/antiplatelets; Z95.1 Presence of aortocoronary bypass graft; Z85.828 Personal history of other malignant neoplasm of skin; Z98.890 Other specified postprocedural states; Z82.49 Family history of ischemic heart disease and other diseases of the circulatory system; Z80.3 Family history of malignant neoplasm of breast
CPT/HCPCS: 36415; 71045; 71275; 76705; 80053; 80061; 82150; 82787; 83690; 83735; 84484; 85025; 85027; 85610; 85730; 86038; 88304; 93005; 93306; 99291

== ENCOUNTER 2019-07-13 20:53 | Emergency (ER) | payer BC, OTHER ==
[2019-07-13] MEDS ORDERED: SODIUM CHLORIDE 0.9% 1,000 ML IV STA (21:36)
[2019-07-13] MEDS ORDERED: KETOROLAC 30 MG/ML 1 ML VIAL IVP STA (21:38)
--- NOTE | 2019-07-13 21:40 | ED ---
Fever HPI - General Chief Complaint: Fever Stated Complaint: post op fever Time Seen by Provider: 07/13/19 21:14 Source: patient Mode of arrival: ambulatory Limitations: no limitations - History of Present Illness Initial Comments: This patient is a 49-year-old man who presents to have evaluation of fever that started this afternoon. The patient is now postoperative day #4 following a laparoscopic cholecystectomy here by Dr. Jiménez. He states that he has been feeling relatively well following the surgery. He does have some mild to moderate right upper quadrant abdominal pain since the surgery and has been using Tylenol and ibuprofen to manage this. In terms of infectious symptoms, he has noted some nasal congestion this evening. He otherwise denies symptoms of infection. No ear pain or sore throat. No cough. No chest pain or dyspnea. No nausea, vomiting or diarrhea. No urinary frequency, dysuria or hematuria. Patient denies leg pain or swelling. MD Complaint: fever -: hour(s) Temperature Source: other Context: recent procedure Associated Symptoms: nasal congestion Treatments Prior to Arrival: Acetaminophen, Ibuprofen - Related Data Previous Rx's Medication Instructions Recorded Acetaminophen Tab [Tylenol] 1,000 mg PO Q6HR PRN #120 tab 11/01/18 Atorvastatin [Lipitor] 40 mg PO DAILY #30 tab 11/01/18 Clopidogrel [Plavix] 75 mg PO DAILY #30 tab 11/01/18 Metoprolol Tartrate [Lopressor] 25 mg PO BID #60 tab 11/01/18 amLODIPine [Norvasc] 5 mg PO DAILY #30 tab 11/01/18 Aspirin 81 mg PO DAILY chew 07/10/19 Docusate [Colace] 100 mg PO BID #20 capsule 07/10/19 HYDROcodone/APAP 5-325MG [[place]onson 1 tab PO Q6HR PRN #10 tab 07/10/19 5-325] Ketorolac [Toradol] 10 mg PO Q6HR #16 tab 07/14/19 Levofloxacin 750 mg PO DAILY #7 tablet 07/14/19 Allergies Allergy/AdvReac Type Severity Reaction Status Date / Time No Known Allergies Allergy Verified 07/13/19 21:08 Review of Systems ROS Statement: Those systems with pertinent positive or pertinent negative responses have been documented in the HPI. ROS Other: All systems not noted in ROS Statement are negative. Constitutional: Reports: fever. Denies: chills, weakness Eyes: Denies: eye pain, eye discharge ENT: Reports: congestion. Denies: ear pain, throat pain Respiratory: Denies: cough, dyspnea, wheezes Cardiovascular: Denies: chest pain, palpitations, edema, syncope Gastrointestinal: Reports: as per HPI, abdominal pain. Denies: nausea, vomiting, diarrhea, constipation, melena, hematochezia Genitourinary: Denies: dysuria, frequency, hematuria, testicular pain Musculoskeletal: Denies: back pain Skin: Denies: rash Neurological: Denies: headache, weakness Past Medical History Past Medical History: Coronary Artery Disease (CAD), Cancer, Chest Pain / Angina, GERD/Reflux, Hyperlipidemia, Hypertension Additional Past Medical History / Comment(s): Basal cell skin cancer with removals History of Any Multi-Drug Resistant Organisms: None Reported Past Surgical History: Coronary Bypass/CABG, Heart Catheterization, Hernia Repair, Orthopedic Surgery, Tonsillectomy Additional Past Surgical History / Comment(s): 10/27/18 CABG 4 vessel, left knee scope, L inguinal hernia repair, colonoscopy 3008-normal, skin cancer removed from back x2 Past Anesthesia/Blood Transfusion Reactions: Motion Sickness, Postoperative Nausea & Vomiting (PONV) Past Psychological History: No Psychological Hx Reported Smoking Status: Never smoker Past Alcohol Use History: None Reported Past Drug Use History: None Reported - Past Family History Father Family Medical History: Hypertension Additional Family Medical History / Comment(s): Father is still living. Mother Family Medical History: Cancer, Hypertension Additional Family Medical History / Comment(s): Breast cancer with mets- of at the age of 53yrs. General Exam Limitations: no limitations General appearance: alert, in no apparent distress Head exam: Present: atraumatic, normocephalic Eye exam: Present: normal appearance. Absent: scleral icterus, conjunctival injection ENT exam: Present: normal oropharynx Neck exam: Present: normal inspection, full ROM. Absent: meningismus Respiratory exam: Present: normal lung sounds bilaterally. Absent: respiratory distress, wheezes, rales, rhonchi, stridor Cardiovascular Exam: Present: regular rate, normal rhythm, normal heart sounds. Absent: systolic murmur, diastolic murmur, rubs, gallop GI/Abdominal exam: Present: soft, normal bowel sounds, other (The patient's lal rgical incisions have a normal postsurgical appearance. There is some moderate ecchymosis in the right lower quadrant adjacent to the incision. There is no real tenderness on the abdominal exam.). Absent: distended, tenderness, guarding, rebound, rigid, mass, hernia Extremities exam: Present: normal inspection, normal capillary refill. Absent: pedal edema, calf tenderness Back exam: Present: normal inspection. Absent: CVA tenderness (R), CVA tenderness (L) Neurological exam: Present: alert Skin exam: Present: warm, dry, intact, normal color, other (See abdominal exam). Absent: rash Course Vital Signs 07/13/19 07/14/19 21:04 00:37 Temperature 98.0 F 100.6 F H Pulse Rate 79 71 Respiratory 20 16 Rate Blood Pressure 123/77 134/77 O2 Sat by Pulse 96 95 Oximetry Medical Decision Making - Medical Decision Making This patient is a 49-year-old man who presents to be evaluated for fever that was noted at home. The patient is postoperative day for following labs Akiko cystectomy. He states that he only has some minimal abdominal pain that he has been taking Tylenol and ibuprofen for. He has not noted other symptoms of infection though he does acknowledge having just a mild cough and also the nasal congestion. The workup does reveal streak of atelectasis versus early pneumonia in the right lung. The patient is given dose of antibiotics here and then prescription to continue at home. He is wanting to go home rather than stay in the hospital. We discussed further treatment and return parameters. - Lab Data Result diagrams: 07/13/19 22:20 07/13/19 22:20 Lab Results 07/13/19 07/13/19 07/13/19 Range/Units 22:20 22:20 22:20 WBC 6.7 (3.8-10.6) k/uL RBC 5.16 (4.30-5.90) m/uL Hgb 15.2 D (13.0-17.5) gm/dL Hct 46.2 (39.0-53.0) % MCV 89.5 (80.0-100.0) fL MCH 29.4 (25.0-35.0) pg MCHC 32.9 (31.0-37.0) g/dL RDW 14.1 (11.5-15.5) % Plt Count 221 (150-450) k/uL Neutrophils % 78 % Lymphocytes % 14 % Monocytes % 4 % Eosinophils % 2 % Basophils % 1 % Neutrophils # 5.3 (1.3-7.7) k/uL Lymphocytes # 0.9 L (1.0-4.8) k/uL Monocytes # 0.3 (0-1.0) k/uL Eosinophils # 0.1 (0-0.7) k/uL Basophils # 0.0 (0-0.2) k/uL Sodium 140 (137-145) mmol/L Potassium 3.9 (3.5-5.1) mmol/L Chloride 108 H (98-107) mmol/L Carbon Dioxide 21 L (22-30) mmol/L Anion Gap 11 mmol/L BUN 13 (9-20) mg/dL Creatinine 0.94 (0.66-1.25) mg/dL Est GFR (CKD-EPI)AfAm >90 (>60 ml/min/1.73 sqM) Est GFR (CKD-EPI)NonAf >90 (>60 ml/min/1.73 sqM) Glucose 95 (74-99) mg/dL Plasma Lactic Acid Colt 1.8 (0.7-2.0) mmol/L Calcium 9.0 (8.4-10.2) mg/dL Total Bilirubin 1.4 H (0.2-1.3) mg/dL AST 49 (17-59) U/L ALT 52 H (4-49) U/L Alkaline Phosphatase 218 H (38-126) U/L Total Protein 6.5 (6.3-8.2) g/dL Albumin 3.6 (3.5-5.0) g/dL Amylase (30-110) U/L Lipase (23-300) U/L Urine Color Urine Appearance (Clear) Urine pH (5.0-8.0) Ur Specific Moran (1.001-1.035) Urine Protein (Negative) Urine Glucose (UA) (Negative) Urine Ketones (Negative) Urine Blood (Negative) Urine Nitrite (Negative) Urine Bilirubin (Negative) Urine Urobilinogen (<2.0) mg/dL Ur Leukocyte Esterase (Negative) Influenza Type A RNA (Not Detectd) Influenza Type B (PCR) (Not Detectd) Group A Strep Rapid (Negative) 07/13/19 07/13/19 07/13/19 Range/Units 22:20 22:20 22:20 WBC (3.8-10.6) k/uL RBC (4.30-5.90) m/uL Hgb (13.0-17.5) gm/dL Hct (39.0-53.0) % MCV (80.0-100.0) fL MCH (25.0-35.0) pg MCHC (31.0-37.0) g/dL RDW (11.5-15.5) % Plt Count (150-450) k/uL Neutrophils % % Lymphocytes % % Monocytes % % Eosinophils % % Basophils % % Neutrophils # (1.3-7.7) k/uL Lymphocytes # (1.0-4.8) k/uL Monocytes # (0-1.0) k/uL Eosinophils # (0-0.7) k/uL Basophils # (0-0.2) k/uL Sodium (137-145) mmol/L Potassium (3.5-5.1) mmol/L Chloride (98-107) mmol/L Carbon Dioxide (22-30) mmol/L Anion Gap mmol/L BUN (9-20) mg/dL Creatinine (0.66-1.25) mg/dL Est GFR (CKD-EPI)AfAm (>60 ml/min/1.73 sqM) Est GFR (CKD-EPI)NonAf (>60 ml/min/1.73 sqM) Glucose (74-99) mg/dL Plasma Lactic Acid Colt (0.7-2.0) mmol/L Calcium (8.4-10.2) mg/dL Total Bilirubin (0.2-1.3) mg/dL AST (17-59) U/L ALT (4-49) U/L Alkaline Phosphatase (38-126) U/L Total Protein (6.3-8.2) g/dL Albumin (3.5-5.0) g/dL Amylase 46 (30-110) U/L Lipase 143 (23-300) U/L Urine Color Urine Appearance (Clear) Urine pH (5.0-8.0) Ur Specific Moran (1.001-1.035) Urine Protein (Negative) Urine Glucose (UA) (Negative) Urine Ketones (Negative) Urine Blood (Negative) Urine Nitrite (Negative) Urine Bilirubin (Negative) Urine Urobilinogen (<2.0) mg/dL Ur Leukocyte Esterase (Negative) Influenza Type A RNA Not Detected (Not Detectd) Influenza Type B (PCR) Not Detected (Not Detectd) Group A Strep Rapid Negative (Negative) 07/13/19 Range/Units 22:50 WBC (3.8-10.6) k/uL RBC (4.30-5.90) m/uL Hgb (13.0-17.5) gm/dL Hct (39.0-53.0) % MCV (80.0-100.0) fL MCH (25.0-35.0) pg MCHC (31.0-37.0) g/dL RDW (11.5-15.5) % Plt Count (150-450) k/uL Neutrophils % % Lymphocytes % % Monocytes % % Eosinophils % % Basophils % % Neutrophils # (1.3-7.7) k/uL Lymphocytes # (1.0-4.8) k/uL Monocytes # (0-1.0) k/uL Eosinophils # (0-0.7) k/uL Basophils # (0-0.2) k/uL Sodium (137-145) mmol/L Potassium (3.5-5.1) mmol/L Chloride (98-107) mmol/L Carbon Dioxide (22-30) mmol/L Anion Gap mmol/L BUN (9-20) mg/dL Creatinine (0.66-1.25) mg/dL Est GFR (CKD-EPI)AfAm (>60 ml/min/1.73 sqM) Est GFR (CKD-EPI)NonAf (>60 ml/min/1.73 sqM) Glucose (74-99) mg/dL Plasma Lactic Acid Colt (0.7-2.0) mmol/L Calcium (8.4-10.2) mg/dL Total Bilirubin (0.2-1.3) mg/dL AST (17-59) U/L ALT (4-49) U/L Alkaline Phosphatase (38-126) U/L Total Protein (6.3-8.2) g/dL Albumin (3.5-5.0) g/dL Amylase (30-110) U/L Lipase (23-300) U/L Urine Color Yellow Urine Appearance Clear (Clear) Urine pH 7.0 (5.0-8.0) Ur Specific Moran 1.026 (1.001-1.035) Urine Protein Trace H (Negative) Urine Glucose (UA) Negative (Negative) Urine Ketones Trace H (Negative) Urine Blood Negative (Negative) Urine Nitrite Negative (Negative) Urine Bilirubin Negative (Negative) Urine Urobilinogen 3.0 (<2.0) mg/dL Ur Leukocyte Esterase Negative (Negative) Influenza Type A RNA (Not Detectd) Influenza Type B (PCR) (Not Detectd) Group A Strep Rapid (Negative) Disposition Clinical Impression: Fever Narrative: Possible pneumonia Disposition: HOME SELF-CARE Condition: Good Instructions (If sedation given, give patient instructions): Fever in Adults (ED) Prescriptions: Levofloxacin 750 mg PO DAILY #7 tablet Ketorolac [Toradol] 10 mg PO Q6HR #16 tab Is patient prescribed a controlled substance at d/c from ED?: No Referrals: Cooper Jade MD [Primary Care Provider] - 1-2 days
[2019-07-13 22:44] LABS: Basophils % (A) 1 %; Eosinophils # (A) 0.1 k/uL (0-0.7); Eosinophils % (A) 2 %; HCT 46.2 % (39.0-53.0); Lymphocytes # (A) 0.9 k/uL (1.0-4.8); Lymphocytes % (A) 14 %; MCH 29.4 pg (25.0-35.0); MCHC 32.9 g/dL (31.0-37.0); MCV 89.5 fL (80.0-100.0); Mean Platelet Volume 7.8; Monocytes # (A) 0.3 k/uL (0-1.0); Monocytes % (A) 4 %; Neutrophils # (A) 5.3 k/uL (1.3-7.7); Neutrophils % (A) 78 %; Platelet Count 221 k/uL (150-450); RBC 5.16 m/uL (4.30-5.90); RDW 14.1 % (11.5-15.5); WBC 6.7 k/uL (3.8-10.6)
[2019-07-13 22:51] LABS: HGB 15.2 gm/dL (13.0-17.5)
[2019-07-13 22:55] LABS: ALT 52 U/L (4-49); AST 49 U/L (17-59); African American GFR (CKD) >90 (>60 ml/min/1.73 sqM); Albumin 3.6 g/dL (3.5-5.0); Alkaline Phosphatase 218 U/L (38-126); Anion Gap 11 mmol/L; Blood Urea Nitrogen 13 mg/dL (9-20); Carbon Dioxide 21 mmol/L (22-30); Chloride 108 mmol/L (98-107); Glucose 95 mg/dL (74-99); Non-African American GFR(CKD) >90 (>60 ml/min/1.73 sqM); Potassium 3.9 mmol/L (3.5-5.1); Sodium 140 mmol/L (137-145); Total Bilirubin 1.4 mg/dL (0.2-1.3); Total Protein 6.5 g/dL (6.3-8.2)
--- NOTE | 2019-07-13 23:18 | XR ---
EXAMINATION TYPE: XR chest 2V DATE OF EXAM: 07/13/2019 COMPARISON: 07/07/2019 HISTORY: Fever TECHNIQUE: FINDINGS: Heart is normal. There is some mild linear density right midlung. There is slight blunting left costophrenic angle. There are sternal wires. There is no heart failure. Bony thorax is intact. IMPRESSION: There is minimal pleural reaction at the left lung base. Mild bilateral subsegmental atel ectasis. Abnormality appears new compared to old exam. Normal heart. No pulmonary consolidation.
[2019-07-13] MEDS ORDERED: LEVOFLOXACIN 750 MG TAB PO STA (23:30)
[2019-07-13] MEDS ORDERED: PIPERACILLIN-TAZOBACTAM 3.375 GM in SODIUM CHLORIDE 0.9% 100 ML IVPB STA (23:31)
[2019-07-14 00:10] LABS: Amylase 46 U/L (30-110)
[2019-07-14 00:13] LABS: Appearance,Urine Clear (Clear); Bilirubin,Urine Negative (Negative); Blood,Urine Negative (Negative); Color,Urine Yellow; Glucose,Urine (UA) Negative (Negative); Ketones,Urine Trace (Negative); Leukocyte Esterase,Urine Negative (Negative); Nitrite,Urine Negative (Negative); Protein,Urine Trace (Negative); Specific Gravity,Urine 1.026 (1.001-1.035)
[2019-07-14 00:39] VITALS: TEMP 100.6
[2019-07-14 01:42] VITALS: BP 132/76; PULSE 72; RESP 18
== END 2019-07-14 01:41 | disposition home or self-care (01) ==
LOC: EC 20:53
DX: R50.82 Postprocedural fever (principal); K91.840 Postprocedural hemorrhage of a digestive system organ or structure following a digestive system procedure; R05 Cough; R09.81 Nasal congestion; G89.18 Other acute postprocedural pain; R10.11 Right upper quadrant pain; I25.119 Atherosclerotic heart disease of native coronary artery with unspecified angina pectoris; Z85.828 Personal history of other malignant neoplasm of skin; Z90.49 Acquired absence of other specified parts of digestive tract; Z95.1 Presence of aortocoronary bypass graft; Z98.890 Other specified postprocedural states
CPT/HCPCS: 99283; 96365; 96375; 96361; 36415; 80053; 82150; 83605; 83690; 85025; 81003; 87040; 87081; 87430; 87502; 71046; J2543; J1885